=== PATIENT | female | born 1940 | race Caucasian/White ===

== ENCOUNTER 2016-06-01 17:11 | Inpatient (IN) | payer MEDICARE ==
[2016-06-01] MEDS ORDERED: NS 0.9% 1000 ML* 1,000 ML IV SCH ×2 (17:45→18:45)
[2016-06-01 18:08] LABS: Hematocrit 39 % (35-47); Hemoglobin 12.6 g/dl (12.0-16.0); Mean Corpuscular HGB Conc 32 g/dl (31-36); Mean Corpuscular Hemoglobin 27 pg (27-31); Mean Corpuscular Volume 84 fL (80-97); Mean Platelet Volume 9 um3 (7.4-10.4); Red Blood Count 4.64 10^6/ul (4.0-5.4); Red Cell Distribution Width 15 % (10.5-15); White Blood Count 13.3 10^3/ul (3.5-10.8)
[2016-06-01] MEDS ORDERED: Naloxone* 0.4 MG/ML 1 ML VIAL ONE (18:21)
[2016-06-01] MEDS ORDERED: Naloxone* 0.4 MG/ML 1 ML VIAL IV PUSH ONE (18:23)
[2016-06-01 18:24] LABS: ALT 16 U/L (7-52); AST 24 U/L (13-39); Albumin 3.7 g/dL (3.2-5.2); Alkaline Phosphatase 128 U/L (34-104); Anion Gap 7 mmol/L (2-11); BUN/Creatinine Ratio 16.8 (8-20); Blood Urea Nitrogen 19 mg/dL (6-24); CO2 Carbon Dioxide 28 mmol/L (22-32); Calcium 9.6 mg/dL (8.6-10.3); Chloride 103 mmol/L (101-111); Creatine Kinase 59 U/L (10-223); EGFR African American 60.2 (>60); EGFR Non-African American 46.8 (>60); Globulin 3.9 g/dL (2-4); Glucose 218 mg/dL (70-100); Potassium 3.5 mmol/L (3.5-5.0); Sodium 138 mmol/L (133-145); Total Protein 7.6 g/dL (6.4-8.9)
[2016-06-01 18:25] LABS: Troponin I 0.02 ng/mL (<0.04)
[2016-06-01 18:50] LABS: Acetaminophen < 15 mcg/mL; Alcohol < 10 mg/dL (<10); Salicylate < 2.50 mg/dL (<30)
--- NOTE | 2016-06-01 18:52 | ED ---
Gage Mullen Anna, scribed for James Iglesias MD on 06/01/16 at 1749 . Substance Abuse/Use - HPI Summary HPI Summary: Patient is a 75 y/o female coming to [facility] after taking 7-10 tablets of 30 mg oxycontin at 1600 this afternoon. The tablets were from an old bottle that was accidentally left out. Her reports that she takes 5 mg of oxycontin as needed for her shoulder. EMS reported the patient experienced several bouts of SVT en route to [facility]. Her history is significant for a fib and dementia. LEVEL 5 CAVEAT UNABLE TO OBTAIN FULL HISTORY DUE TO HX OF DEMENTIA - History Of Current Complaint Stated Complaint: ACCIDENTAL OVERDOSE Time Seen by Provider: 06/01/16 17:36 Hx Obtained From: Family/Lead Refiner - Accompanied by Hx From Patient Unobtainable Due To: Dementia - Allergies/Home Medications Allergies/Adverse Reactions: Allergies Allergy/AdvReac Type Severity Reaction Status Date / Time Sulfa Antibiotics Allergy Unknown Verified 06/01/16 18:20 Reaction Details Home Medications: Home Medications Apixaban* [Eliquis*] 5 mg PO BID 06/01/16 [History Confirmed 06/01/16] Aspirin EC Low Dose* [Ecotrin EC Low Dose*] 81 mg PO DAILY 06/01/16 [History Confirmed 06/01/16] Atorvastatin* [Lipitor*] 20 mg PO DAILY 06/01/16 [History Confirmed 06/01/16] Nebivolol TAB (NF) [Bystolic TAB (NF)] 5 mg PO DAILY 06/01/16 [History Confirmed 06/01/16] Temazepam CAP* [Restoril CAP*] 15 mg PO BEDTIME 06/01/16 [History Confirmed ] Torsemide TAB* [Demadex*] 10 mg PO DAILY 06/01/16 [History Confirmed 06/01/16] oxyCODONE/Acetamin 5/325 MG* [Percocet 5/325 TAB*] 1 tab PO Q4H PRN 06/01/16 [ History Confirmed 06/01/16] PMH/Surg Hx/FS Hx/Imm Hx Endocrine/Hematology History: Reports: Hx Diabetes Cardiovascular History: Reports: Hx Atrial Fibrillation, Hx Coronary Artery Disease Musculoskeletal History: Reports: Hx of Fracture(s) - wrist Neurological History: Reports: Hx Dementia Infectious Disease History: No Infectious Disease History: Denies: Traveled Outside the [place] in Last 30 Days - Family History Known Family History: Positive: Diabetes Negative: Cardiac Disease - Social History Occupation: Retired Lives: With Family Alcohol Use: None Hx Substance Use: No Substance Use Type: Reports: None Hx Tobacco Use: No Smoking Status (MU): Never Smoked Tobacco Review of Systems - ROS Summary Review of Systems Summary: LEVEL 5 CAVEAT UNABLE TO OBTAIN FULL HISTORY DUE TO HX OF DEMENTIA Positive: Palpitations Neurological: Other - decreased responsiveness All Other Systems Reviewed And Are Negative: No Physical Exam Triage Information Reviewed: Yes Vital Signs On Initial Exam: Initial Vitals Temp Pulse Resp BP Pulse Ox 96.3 F 82 14 161/74 97 06/01/16 17:32 06/01/16 17:32 06/01/16 17:32 06/01/16 17:32 06/01/16 17:32 Vital Signs Reviewed: Yes Appearance: Positive: Well-Appearing, No Pain Distress Skin: Positive: Warm, Skin Color Reflects Adequate Perfusion, Dry Head/Face: Positive: Normal Head/Face Inspection Eyes: Positive: Other: - Pupils 2 mm ENT: Positive: Normal ENT inspection Neck: Positive: Supple, Nontender Respiratory/Lung Sounds: Positive: Clear to Auscultation, Breath Sounds Present Cardiovascular: Positive: RRR Abdomen Description: Positive: Nontender, Soft Bowel Sounds: Positive: Hypoactive Musculoskeletal: Positive: Normal, Strength/ROM Intact Neurological: Positive: Other - Nonreactive. Stuporous. Decreased level of responsiveness. Responds to loud voice. Psychiatric: Positive: Patient Uncooperative for Exam - Nonreactive. Diagnostics - Vital Signs Vital Signs Temp Pulse Resp BP Pulse Ox 06/01/16 17:32 96.3 F 82 14 161/74 97 - Laboratory Lab Results: Lab Results 06/01/16 06/01/16 06/01/16 Range/Units 17:55 17:55 17:55 WBC 13.3 H (3.5-10.8) 10^3/ul RBC 4.64 (4.0-5.4) 10^6/ul Hgb 12.6 (12.0-16.0) g/dl Hct 39 (35-47) % MCV 84 (80-97) fL MCH 27 (27-31) pg MCHC 32 (31-36) g/dl RDW 15 (10.5-15) % Plt Count 236 (150-450) 10^3/ul MPV 9 (7.4-10.4) um3 Neut % (Auto) 72.2 (38-83) % Lymph % (Auto) 19.4 L (25-47) % [place] % (Auto) 6.1 (1-9) % Eos % (Auto) 1.6 (0-6) % Baso % (Auto) 0.7 (0-2) % Absolute Neuts (auto) 9.6 H (1.5-7.7) 10^3/ul Absolute Lymphs (auto) 2.6 (1.0-4.8) 10^3/ul Absolute Monos (auto) 0.8 (0-0.8) 10^3/ul Absolute Eos (auto) 0.2 (0-0.6) 10^3/ul Absolute Basos (auto) 0.1 (0-0.2) 10^3/ul Absolute Nucleated RBC 0 10^3/ul Nucleated RBC % 0 Sodium 138 (133-145) mmol/L Potassium 3.5 (3.5-5.0) mmol/L Chloride 103 (101-111) mmol/L Carbon Dioxide 28 (22-32) mmol/L Anion Gap 7 (2-11) mmol/L BUN 19 (6-24) mg/dL Creatinine 1.13 H (0.51-0.95) mg/dL Est GFR ( Amer) 60.2 (>60) Est GFR (Non-Af Amer) 46.8 (>60) BUN/Creatinine Ratio 16.8 (8-20) Glucose 218 H (70-100) mg/dL Lactic Acid 2.1 H* (0.5-2.0) mmol/L Calcium 9.6 (8.6-10.3) mg/dL Total Bilirubin 0.70 (0.2-1.0) mg/dL AST 24 (13-39) U/L ALT 16 (7-52) U/L Alkaline Phosphatase 128 H (34-104) U/L Total Creatine Kinase 59 (10-223) U/L Troponin I 0.02 (<0.04) ng/mL Total Protein 7.6 (6.4-8.9) g/dL Albumin 3.7 (3.2-5.2) g/dL Globulin 3.9 (2-4) g/dL Albumin/Globulin Ratio 0.9 L (1-3) TSH Pending Salicylates < 2.50 (<30) mg/dL Acetaminophen < 15 mcg/mL Serum Alcohol < 10 (<10) mg/dL Result Diagrams: 06/01/16 17:55 06/01/16 17:55 Lab Statement: Any lab studies that have been ordered have been reviewed, and results considered in the medical decision making process. - EKG 1754 Cardiac Rate: Tachycardia - 110 bpm EKG Interpretation: Artifact because of patient movement Course/Dx - Course Assessment/Plan: PATIENT DISCUSSED WITH POISON CONTROL. ADMIT HOSPITALIST GUARDED. - Diagnoses Provider Diagnoses: Overdose - Physician Notifications Discussed Care Of Patient With: Dr. Healy (hospitalist) at 1758. Accepts patient for admission. Discharge - Discharge Plan Condition: Guarded Disposition: ADMITTED TO [facility] documentation as recorded by the Gage walls Anna accurately reflects the service I personally performed and the decisions made by me, James Iglesias MD.
[2016-06-01 18:59] LABS: TSH (Thyroid Stimulating Horm) 1.82 mcIU/mL (0.34-5.60)
[2016-06-01] MEDS: Naloxone* 0.4 MG/ML 1 ML VIAL IV PUSH PRN ×3 (19:31→21:24)
[2016-06-01] MEDS ORDERED: Naloxone* 2 MG in NS 0.9% 250 ML* 245 ML IV SCH ×6 (21:00→21:38)
[2016-06-01] MEDS: Naloxone* 2 MG in NS 0.9% 250 ML* 245 ML IV SCH (21:40)
--- NOTE | 2016-06-01 22:08 | HP ---
HISTORY AND PHYSICAL: DATE OF ADMISSION: 06/01/16 PRIMARY CARE PROVIDER: Dr. Garza in [place]. CHIEF COMPLAINT: Unintentional OxyContin overdose. HISTORY OF PRESENT ILLNESS: Ms. Vo is a 75-year-old female with a past medical history of dementia, CAD status post LA, diet-controlled diabetes, and possibly AFib, who presents to the hospital after she took somewhere between 7 and 10, 30 mg oxycodone pills. The patient is fairly lethargic and the is unclear about the patient's medical history. He states that around 4:00 p.m. today, the patient was in her usual state of health. The was on the phone and the patient came up to him and told him that she took her night pills. Her usually lies her pills out in a pill bottle for her to take and when she brought him over to the bottle that she took he realized that was old prescription for OxyContin that he had still around the house. He suspects that there may have been between 7 to 10 pills in the bottle; however, he is not sure. The prescription was from some time last year and she is no longer on OxyContin. Her then called the EMS, who picked the patient and took her to the hospital. She was noted to have a few bouts of SVT en route to the emergency room which she continued to have intermittently here as well. The patient was initially lethargic. She had complaints; however, she was unable to stay awake for more than a few seconds at a time. Speech was a bit slurred. As per the , the patient was doing well as of late. She is normally ambulatory and alert. He states she has not had any recent fever, chills, chest pain, shortness of breath, diarrhea, or constipation. Has been having good p.o. intake. No hematuria or hematochezia. PAST MEDICAL HISTORY: Dementia, CAD status post LA, diet-controlled diabetes, possible AFib or SVT. PAST SURGICAL HISTORY: Wrist fracture repair, CABG. HOME MEDICATIONS: 1. Eliquis 5 mg by mouth 2 times daily. 2. Aspirin 81 mg by mouth daily. 3. Atorvastatin 20 mg by mouth daily. 4. Bystolic 5 mg by mouth daily. 5. Torsemide 10 mg by mouth daily. 6. Temazepam 15 mg by mouth at bedtime. 7. Percocet 5/325 one tablet by mouth every 4 hours as needed for pain. ALLERGIES: SULFA, METFORMIN, PENICILLIN. FAMILY HISTORY: Significant for father with CAD. Mother of old age. SOCIAL HISTORY: The patient lives at home with her and their son who is their caregiver. The patient does not smoke cigarettes, drink alcohol, and denies illicit drug use. REVIEW OF SYSTEMS: Unable to obtain directly from the patient; however, as per the 12-point review of systems was negative except for that as noted in the HPI. PHYSICAL EXAMINATION GENERAL: The patient is an elderly female, lying in bed, lethargic. VITAL SIGNS: On admission, temperature 96.3, heart rate of 82, respiratory rate of 14, O2 saturation 97% on room air, blood pressure 161/74. End-tidal CO2 in the 31. HEENT: Pupils did not appear pinpoint, although slightly constricted. Mucous membranes are dry. No cervical adenopathy. LUNGS: Clear to auscultation bilaterally. No wheezes, rales, or rhonchi. CARDIOVASCULAR: Regular rate and rhythm. S1 and S2 present. No murmurs, gallops, or rubs. Occasional bursts of tachycardia. ABDOMEN: Soft, nontender, and nondistended. Bowel sounds positive. EXTREMITIES: Trace edema. No clubbing or cyanosis. NEURO: The patient is lethargic. Opens eyes briefly to voice, then falls back asleep. No focal deficits. DIAGNOSTIC STUDIES/LAB DATA: White blood cell count is 13, hematocrit of 39, platelets of 236. Sodium 138, potassium 3.5, chloride of 103, carbon dioxide 28 , BUN 19, creatinine 1.13, glucose of 218, lactic acid of 2.1. LFTs within normal limits. TSH of 1.82. Serum alcohol, acetaminophen, and salicylates are all negative. EKG personally reviewed shows normal sinus rhythm and seems to have picked up the end of run of SVT. ASSESSMENT AND PLAN: Unintentional overdose in a 75-year-old female with a past medical history of dementia, coronary artery disease status post myocardial infarction, diet-controlled diabetes, and possible atrial fibrillation. 1. Overdose. The patient took possibly 7 to 10 tablets of 30 mg OxyContin pills. While in the emergency department, she appeared lethargic. We administered 0.4 mg of Narcan. The patient immediately was more alert and responsive. We will continue p.r.n. Narcan for respiratory rate less than 10. If the patient is requiring frequent doses, Narcan drip can be started. She will be monitored closely in the ICU. Hopefully, these medications will begin to wear off tomorrow. The patient is not supplemental oxygen. She is fairly protecting her airway and does not need endotracheal intubation. 2. Supraventricular tachycardia, possible history of atrial fibrillation. The patient is having short bursts of supraventricular tachycardia that are largely asymptomatic, just lasting for a few seconds. We will continue the patient's home beta rodney and can restart Eliquis in the morning as well providing she is more alert. 3. Coronary artery disease status post myocardial infarction. We will order home aspirin 81 mg by mouth daily, Lipitor 20 mg by mouth daily, and nebivolol 5 mg by mouth daily. 4. Dementia. Supportive care. 5. Diet-controlled diabetes. The patient is not on any home medications. We will check glucoses with daily BMP. 6. DVT prophylaxis. We will keep the patient on heparin subcu overnight until she is able to take her Eliquis. 7. Code status. The patient is a full code. I discussed with her who is also the surrogate decision maker, his number is [phone]. TIME SPENT: Total time spent on this discharge 55 minutes. This is a summary of the hospitalization. Please see the full medical record for further details. [id number]/CPS #: [id number] MTDD
[2016-06-01] MEDS: Heparin VIAL(*) 5000 UNITS/ML VIAL (FIVE THOUSAND) SUBCUT SCH (22:32)
[2016-06-01 23:32] LABS: Urine Bacteria Absent (Absent); Urine Bilirubin Negative (Negative); Urine Glucose 3+(>=500 mg/dL) (Negative); Urine Nitrite Negative (Negative)
[2016-06-01 23:56] LABS: Benzodiazepine Urine Screen None Detected (None Detect)
[2016-06-02] MEDS: Naloxone* 2 MG in NS 0.9% 250 ML* 245 ML IV SCH ×12 (00:01→22:56)
[2016-06-02] MEDS ORDERED: Dextrose 50% Syringe 50 ML* 25 GM/50 ML SYRINGE IV PUSH PRN (00:18)
[2016-06-02] MEDS: Insulin LISPRO* 1 UNITS UNIT SUBCUT SCH ×4 (00:57→17:45)
[2016-06-02 05:36] LABS: Hematocrit 36 % (35-47); Hemoglobin 11.6 g/dl (12.0-16.0); Mean Corpuscular HGB Conc 32 g/dl (31-36); Mean Corpuscular Hemoglobin 27 pg (27-31); Mean Corpuscular Volume 85 fL (80-97); Mean Platelet Volume 9 um3 (7.4-10.4); Red Blood Count 4.25 10^6/ul (4.0-5.4); Red Cell Distribution Width 15 % (10.5-15); White Blood Count 8.4 10^3/ul (3.5-10.8)
[2016-06-02 05:51] LABS: BUN/Creatinine Ratio 20.8 (8-20); Calcium 9.1 mg/dL (8.6-10.3); EGFR African American 68.5 (>60); EGFR Non-African American 53.3 (>60); Potassium 4.4 mmol/L (3.5-5.0)
[2016-06-02] MEDS: Heparin VIAL(*) 5000 UNITS/ML VIAL (FIVE THOUSAND) SUBCUT SCH (06:15)
[2016-06-02] MEDS: Naloxone* 0.4 MG/ML 1 ML VIAL IV PUSH PRN (06:40)
[2016-06-02] MEDS ORDERED: NS 0.9% 250 ML* 250 ML ONE (06:47)
--- NOTE | 2016-06-02 08:55 | PN ---
Subjective Date of Service: 06/02/16 Interval History: Patient seen this morning. Slightly lethargic but improved from last night. Has no complaints, denies pain. Says she's a bit thirsty, not hungry. Knows she's in the hospital because "I took too many pills". Family History: Unchanged from Admission Social History: Unchanged from Admission Past Medical History: Unchanged from Admission Objective Active Medications: Aspirin (Aspirin Ec Low Dose*) 81 mg PO DAILY [facility] Atorvastatin Calcium (Lipitor*) 20 mg PO DAILY [facility] Dextrose (D50w Syringe 50 Ml*) 12.5 gm IV PUSH .FOR FS < 60 - SS PRN Heparin Sodium (Porcine) (Heparin Vial(*)) 5,000 units SUBCUT Q8HR [place] Naloxone HCl 2 mg/ Sodium (Chloride) 250 mls @ 125 mls/hr IV Q2H [place] Insulin Human Lispro (Humalog*) 0 units SUBCUT Q6HR [place] Naloxone HCl (Narcan*) 0.4 mg IV PUSH Q2M PRN Nebivolol (Bystolic Tab (Nf)) 5 mg PO DAILY [facility] Vital Signs 06/01/16 06/01/16 06/01/16 18:30 19:00 19:30 Temperature Pulse Rate 92 73 86 Respiratory 20 13 13 Rate Blood Pressure 151/69 163/70 184/88 (mmHg) O2 Sat by Pulse 99 98 100 Oximetry 06/01/16 06/01/16 06/01/16 20:00 20:15 20:20 Temperature 97.8 F Pulse Rate 86 99 Respiratory 16 12 8 Rate Blood Pressure 193/64 180/77 (mmHg) O2 Sat by Pulse 100 100 Oximetry 06/02/16 06/02/16 06/02/16 06:06 07:00 08:00 Temperature 97.3 F Pulse Rate 67 68 63 Respiratory 10 14 9 Rate Blood Pressure 92/41 116/52 106/48 (mmHg) O2 Sat by Pulse 97 98 99 Oximetry Oxygen Devices in Use Now: Nasal Cannula - 2L Appearance: Elderly, F, laying in bed in NAD Eyes: No Scleral Icterus Ears/Nose/Mouth/Throat: - - Dry MM Neck: NL Appearance and Movements; NL JVP Respiratory: Symmetrical Chest Expansion and Respiratory Effort, Clear to Auscultation Cardiovascular: NL Sounds; No Murmurs; No JVD, RRR Abdominal: NL Sounds; No Tenderness; No Distention Lymphatic: No Cervical Adenopathy Extremities: No Edema Skin: No Rash or Ulcers Neurological: - - Somewhat lethargic, but awakens easily, oriented to self, "hospital" although thought was [place]. No focal deficits Result Diagrams: 06/02/16 05:15 06/02/16 05:15 Microbiology and Other Data: Microbiology 06/01/16 21:26 Nasal Screen MRSA (PCR)(MYRIAM) - Final Nasal Mrsa Negative Assess/Plan/Problems-Billing Assessment: Unintentional Oxycontin OD in a 75 yo F with hx of dementia, CAD, AFib - Patient Problems (1) Opiate overdose Current Visit: Yes Comment: Continues to require Narcan gtt, increased to 125 ml/hr (1 mg/hr) earlier this morning. Contine to monitor closely in ICU until gtt able to be titrated off. Half-life of Oxycontin is 4-6 hours and patient apparently took them around 1630 on 06/01. Will try some PO this morning. (2) SVT (supraventricular tachycardia) Current Visit: Yes Comment: No further episodes (3) Atrial fibrillation Current Visit: Yes Comment: Continue Nebivolol. Restart Eliquis. (4) CAD (coronary artery disease) Current Visit: Yes Comment: Continue ASA, Nebivolol, Lipitor (5) Dementia Current Visit: Yes Comment: Supportive care (6) Diabetes Current Visit: Yes Comment: HISS. Not on home medications. (7) DVT prophylaxis Current Visit: Yes Comment: Eliquis
[2016-06-02] MEDS ORDERED: Apixaban* 5 MG TAB PO SCH (09:00)
[2016-06-02] MEDS: CMCS Nebivolol TAB (NF) 2.5 MG TAB PO SCH (09:03)
[2016-06-02] MEDS: Atorvastatin* 20 MG TAB PO SCH (09:03)
[2016-06-02] MEDS: Aspirin EC Low Dose* 81 MG TAB.EC PO SCH (09:03)
[2016-06-02] MEDS: Apixaban* 5 MG TAB PO SCH ×2 (09:45→20:29)
[2016-06-03] MEDS: Naloxone* 2 MG in NS 0.9% 250 ML* 245 ML IV SCH ×4 (03:46→12:25)
[2016-06-03] MEDS: Insulin LISPRO* 1 UNITS UNIT SUBCUT SCH ×5 (03:51→22:48)
--- NOTE | 2016-06-03 09:50 | PN ---
Subjective Date of Service: 06/03/16 Interval History: Patient seen this morning. More alert but still a bit lethargic. Weaned off Narcan gtt this morning. Apparently did fairly well with PT. She has no complaints, recalls she is here for "taking too many pills". Family History: Unchanged from Admission Social History: Unchanged from Admission Past Medical History: Unchanged from Admission Objective Active Medications: Apixaban (Eliquis*) 5 mg PO BID [facility] Aspirin (Aspirin Ec Low Dose*) 81 mg PO DAILY [facility] Atorvastatin Calcium (Lipitor*) 20 mg PO DAILY [facility] Dextrose (D50w Syringe 50 Ml*) 12.5 gm IV PUSH .FOR FS < 60 - SS PRN Naloxone HCl 2 mg/ Sodium (Chloride) 250 mls @ 125 mls/hr IV Q2H [facility] Insulin Human Lispro (Humalog*) 0 units SUBCUT ACHS [place] Naloxone HCl (Narcan*) 0.4 mg IV PUSH Q2M PRN Nebivolol (Bystolic Tab (Nf)) 5 mg PO DAILY [facility] Vital Signs 06/02/16 06/02/16 06/02/16 10:00 11:00 11:35 Temperature Pulse Rate 62 58 Respiratory 8 9 9 Rate Blood Pressure 109/55 94/49 (mmHg) O2 Sat by Pulse 98 97 Oximetry 06/02/16 06/02/16 06/02/16 16:51 17:00 17:46 Temperature Pulse Rate 71 Respiratory 10 16 16 Rate Blood Pressure 141/46 (mmHg) O2 Sat by Pulse 99 Oximetry 06/03/16 06/03/16 06/03/16 01:00 02:00 03:00 Temperature Pulse Rate 65 Respiratory 13 14 12 Rate Blood Pressure 134/61 142/64 (mmHg) O2 Sat by Pulse 93 93 95 Oximetry 06/03/16 06/03/16 08:00 09:00 Temperature Pulse Rate 65 67 Respiratory 12 14 Rate Blood Pressure 143/61 117/98 (mmHg) O2 Sat by Pulse 91 94 Oximetry Oxygen Devices in Use Now: None Appearance: Elderly, F, sitting in chair in NAD Eyes: No Scleral Icterus Ears/Nose/Mouth/Throat: Mucous Membranes Moist Neck: NL Appearance and Movements; NL JVP Respiratory: Symmetrical Chest Expansion and Respiratory Effort, Clear to Auscultation Cardiovascular: NL Sounds; No Murmurs; No JVD, RRR Abdominal: NL Sounds; No Tenderness; No Distention Lymphatic: No Cervical Adenopathy Extremities: No Edema Skin: No Rash or Ulcers Neurological: - - Alert, oriented to self and place, no focal deficits Result Diagrams: 06/02/16 05:15 06/02/16 05:15 Assess/Plan/Problems-Billing Assessment: Unintentional Oxycontin OD in a 75 yo F with hx of dementia, CAD, AFib - Patient Problems (1) Opiate overdose Current Visit: Yes Comment: Weaned off of Narcan gtt a few hours ago. Will monitor for a few more hours in ICU to see if she needs additional prn Narcan. If not requiring frequently will transfer to the floor. Half-life of Oxycontin is 4-6 hours and patient apparently took them around 1630 on 06/01. (2) SVT (supraventricular tachycardia) Current Visit: Yes Comment: Likely chronic issue for the patient, asmyptomatic. (3) Atrial fibrillation Current Visit: Yes Comment: Continue Nebivolol and Eliquis. (4) CAD (coronary artery disease) Current Visit: Yes Comment: Continue ASA, Nebivolol, Lipitor (5) Dementia Current Visit: Yes Comment: Supportive care (6) Diabetes Current Visit: Yes Comment: HISS. Not on home medications. (7) DVT prophylaxis Current Visit: Yes Comment: Eliquis Status and Disposition: Inpatient for unintentional overdose. Likely discharge in next 24-48 hrs. PT eval pending.
[2016-06-03] MEDS: Atorvastatin* 20 MG TAB PO SCH (10:08)
[2016-06-03] MEDS: Aspirin EC Low Dose* 81 MG TAB.EC PO SCH (10:08)
[2016-06-03] MEDS: CMCS Nebivolol TAB (NF) 2.5 MG TAB PO SCH (10:08)
[2016-06-03] MEDS: Apixaban* 5 MG TAB PO SCH ×2 (10:09→22:48)
[2016-06-04] MEDS: Apixaban* 5 MG TAB PO SCH (08:02)
[2016-06-04] MEDS: CMCS Nebivolol TAB (NF) 2.5 MG TAB PO SCH (08:02)
[2016-06-04] MEDS: Atorvastatin* 20 MG TAB PO SCH (08:02)
[2016-06-04] MEDS: Aspirin EC Low Dose* 81 MG TAB.EC PO SCH (08:03)
[2016-06-04] MEDS: Insulin LISPRO* 1 UNITS UNIT SUBCUT SCH (08:04)
[2016-06-04 08:48] VITALS: BP 150/53
--- NOTE | 2016-06-04 09:45 | DCNOTE ---
Subjective Date of Service: 06/04/16 Interval History: No c/o. She states she ate breakfast well and slept well. She denies any pain. Family History: Unchanged from Admission Social History: Unchanged from Admission Past Medical History: Unchanged from Admission Objective Active Medications: Apixaban (Eliquis*) 5 mg PO BID [facility] Last Admin: 06/04/16 08:02 Dose: 5 mg Aspirin (Aspirin Ec Low Dose*) 81 mg PO DAILY [facility] Last Admin: 06/04/16 08:03 Dose: 81 mg Atorvastatin Calcium (Lipitor*) 20 mg PO DAILY [facility] Last Admin: 06/04/16 08:02 Dose: 20 mg Dextrose (D50w Syringe 50 Ml*) 12.5 gm IV PUSH .FOR FS < 60 - SS PRN PRN Reason: FS < 60 Insulin Human Lispro (Humalog*) 0 units SUBCUT ACHS [facility] PRN Reason: Protocol Last Admin: 06/04/16 08:04 Dose: Not Given Naloxone HCl (Narcan*) 0.4 mg IV PUSH Q2M PRN PRN Reason: RR < 10 Last Admin: 06/02/16 06:40 Dose: 0.4 mg Nebivolol (Bystolic Tab (Nf)) 5 mg PO DAILY [facility] Last Admin: 06/04/16 08:02 Dose: 5 mg Vital Signs 06/03/16 06/03/16 06/03/16 10:00 10:03 11:00 Temperature Pulse Rate 75 63 Respiratory 18 18 15 Rate Blood Pressure 159/64 120/42 (mmHg) O2 Sat by Pulse 94 92 Oximetry 06/03/16 06/03/16 06/03/16 12:00 12:16 12:23 Temperature 98.8 F 98.8 F 98.8 F Pulse Rate 67 67 Respiratory 18 16 Rate Blood Pressure 155/57 155/57 (mmHg) O2 Sat by Pulse 98 98 Oximetry 06/03/16 06/03/16 06/03/16 14:26 15:56 20:00 Temperature 98.3 F Pulse Rate 68 69 Respiratory 17 17 17 Rate Blood Pressure 152/60 147/74 (mmHg) O2 Sat by Pulse 100 97 Oximetry 06/03/16 06/04/16 06/04/16 23:22 04:45 07:43 Temperature 98.0 F 98.4 F 98.4 F Pulse Rate 66 68 67 Respiratory 16 18 18 Rate Blood Pressure 142/49 157/73 150/53 (mmHg) O2 Sat by Pulse 96 96 100 Oximetry 06/04/16 08:48 Temperature Pulse Rate Respiratory 20 Rate Blood Pressure (mmHg) O2 Sat by Pulse Oximetry Oxygen Devices in Use Now: None Appearance: Alert, in a chair. In good spirits. Looks comfortable. Eyes: No Scleral Icterus Ears/Nose/Mouth/Throat: Clear Oropharnyx, Mucous Membranes Moist Neck: NL Appearance and Movements; NL JVP, No Thyroid Enlargement, Masses Respiratory: Symmetrical Chest Expansion and Respiratory Effort, Clear to Auscultation, Clear to Percussion Cardiovascular: NL Sounds; No Murmurs; No JVD, RRR, No Edema, - Extremities: No Edema, No Clubbing, Cyanosis, - Skin: No Rash or Ulcers, No Nodules or Sclerosis, - Neurological: NL Sensation - She knows her whole name, her age, her 's name, and the present month, but did not know the name of the facility. Result Diagrams: 06/02/16 05:15 06/02/16 05:15 Additional Lab and Data: Lab Results 06/01/16 06/01/16 06/01/16 Range/Units 17:55 17:55 17:55 WBC 13.3 H (3.5-10.8) 10^3/ul RBC 4.64 (4.0-5.4) 10^6/ul Hgb 12.6 (12.0-16.0) g/dl Hct 39 (35-47) % MCV 84 (80-97) fL MCH 27 (27-31) pg MCHC 32 (31-36) g/dl RDW 15 (10.5-15) % Plt Count 236 (150-450) 10^3/ul MPV 9 (7.4-10.4) um3 Neut % (Auto) 72.2 (38-83) % Lymph % (Auto) 19.4 L (25-47) % [place] % (Auto) 6.1 (1-9) % Eos % (Auto) 1.6 (0-6) % Baso % (Auto) 0.7 (0-2) % Absolute Neuts (auto) 9.6 H (1.5-7.7) 10^3/ul Absolute Lymphs (auto) 2.6 (1.0-4.8) 10^3/ul Absolute Monos (auto) 0.8 (0-0.8) 10^3/ul Absolute Eos (auto) 0.2 (0-0.6) 10^3/ul Absolute Basos (auto) 0.1 (0-0.2) 10^3/ul Absolute Nucleated RBC 0 10^3/ul Nucleated RBC % 0 Sodium 138 (133-145) mmol/L Potassium 3.5 (3.5-5.0) mmol/L Chloride 103 (101-111) mmol/L Carbon Dioxide 28 (22-32) mmol/L Anion Gap 7 (2-11) mmol/L BUN 19 (6-24) mg/dL Creatinine 1.13 H (0.51-0.95) mg/dL Est GFR ( Amer) 60.2 (>60) Est GFR (Non-Af Amer) 46.8 (>60) BUN/Creatinine Ratio 16.8 (8-20) Glucose 218 H (70-100) mg/dL Lactic Acid 2.1 H* (0.5-2.0) mmol/L Calcium 9.6 (8.6-10.3) mg/dL Total Bilirubin 0.70 (0.2-1.0) mg/dL AST 24 (13-39) U/L ALT 16 (7-52) U/L Alkaline Phosphatase 128 H (34-104) U/L Total Creatine Kinase 59 (10-223) U/L Troponin I 0.02 (<0.04) ng/mL Total Protein 7.6 (6.4-8.9) g/dL Albumin 3.7 (3.2-5.2) g/dL Globulin 3.9 (2-4) g/dL Albumin/Globulin Ratio 0.9 L (1-3) TSH Pending Salicylates < 2.50 (<30) mg/dL Acetaminophen < 15 mcg/mL Serum Alcohol < 10 (<10) mg/dL Microbiology and Other Data: Microbiology 06/01/16 21:26 Nasal Screen MRSA (PCR)(MYRIAM) - Final Nasal Mrsa Negative Assess/Plan/Problems-Billing Assessment: Unintentional Oxycontin OD in a 75 yo F with hx of dementia, CAD, AFib - Patient Problems (1) Opiate overdose Current Visit: Yes Status: Acute Code(s): T40.601A - POISONING BY UNSP NARCOTICS, ACCIDENTAL, INIT SNOMED Code(s): 901452171 Comment: Resolved. I discussed meds (opiates and benzos) and pain/sleep management with . (2) Atrial fibrillation Current Visit: Yes Status: Acute Code(s): I48.91 - UNSPECIFIED ATRIAL FIBRILLATION SNOMED Code(s): 42991449 Comment: Continue Nebivolol and Eliquis. (3) CAD (coronary artery disease) Current Visit: Yes Status: Acute Code(s): I25.10 - ATHSCL HEART DISEASE OF [place] CORONARY ARTERY W/O ANG PCTRS SNOMED Code(s): 27923615 Comment: Continue ASA, Nebivolol, Lipitor (4) Dementia Current Visit: Yes Status: Acute Code(s): F03.90 - UNSPECIFIED DEMENTIA WITHOUT BEHAVIORAL DISTURBANCE SNOMED Code(s): 96506149 Comment: Supportive care (5) SVT (supraventricular tachycardia) Current Visit: Yes Status: Acute Code(s): I47.1 - SUPRAVENTRICULAR TACHYCARDIA SNOMED Code(s): 2329276 Comment: Likely chronic issue for the patient, asmyptomatic. Status and Disposition: Discharge now. Fup Dr. Garza.
--- NOTE | 2016-06-04 09:52 | PN ---
Progress Note - Progress Note Note: Time spent on discharge 45 minutes.
--- NOTE | 2016-06-04 11:33 | DS ---
DISCHARGE SUMMARY: DATE OF ADMISSION: DATE OF DISCHARGE: 06/04/16 HOSPITAL COURSE: This 75-year-old woman was admitted with an unintentional oxycodone overdose. The patient apparently had an old prescription for oxycodone slow release around the house, although that she was not supposed to be taking it and could have taken as many as 10 of the tablets. She was not sure how many was in the bottle. The patient was lethargic and required naloxone continuous infusions for a while ; however, she recovered to her baseline status and was in good condition on the day of discharge. She denied having pain. She did not get anymore analgesics. She did not get any hypnotic agents either. On discharge, I have instructed the not to give her temazepam or oxycodone, but TO use acetaminophen 650 mg every 4 hours p.r.n. pain. FINAL DIAGNOSES: 1. Opioid misuse. 2. Supraventricular tachycardia. 3. Atrial fibrillation. 4. Dementia. 5. Coronary artery disease. DISCHARGE MEDICATIONS: 1. Acetaminophen 650 mg q4hr PRN 2. Nebivolol 5 mg daily 3. Atorvastatin 20 mg daily 4. ASA EC 81 mg daily 5. Apixaban 5 mg bid [id number]/[facility] #: [id number] MTDD
== END 2016-06-04 10:40 | disposition home or self-care (01) | DRG 918 ==
LOC: ED 17:11 → ICU 18:11 → MED 06-03 10:56
PROVIDERS: ADMIT Hospitalist; ATTEND Internal Medicine
DX: T40.2X1A Poisoning by other opioids, accidental (unintentional), initial encounter (principal); I47.1 Supraventricular tachycardia; F03.90 Unspecified dementia, unspecified severity, without behavioral disturbance, psychotic disturbance, mood disturbance, and anxiety; I48.0 Paroxysmal atrial fibrillation; I25.810 Atherosclerosis of coronary artery bypass graft(s) without angina pectoris; R53.83 Other fatigue; Y92.009 Unspecified place in unspecified non-institutional (private) residence as the place of occurrence of the external cause; E11.9 Type 2 diabetes mellitus without complications; I25.2 Old myocardial infarction; Z79.01 Long term (current) use of anticoagulants; Z79.82 Long term (current) use of aspirin; Z79.899 Other long term (current) drug therapy; Z88.0 Allergy status to penicillin; Z88.2 Allergy status to sulfonamides; Z88.8 Allergy status to other drugs, medicaments and biological substances; Z82.49 Family history of ischemic heart disease and other diseases of the circulatory system
CPT/HCPCS: 36415; 80048; 80053; 80307; 80320; 80329; 81003; 81015; 82550; 83605; 84443; 84484; 85025; 87077; 87086; 87186; 87641; 93005; A9270-GY; G0480; J1644; J2310

== ENCOUNTER 2018-08-25 00:42 | Inpatient (IN) | payer MEDICARE, MEDICAID ==
--- NOTE | 2018-08-25 01:27 | ED ---
Complex/Multi-Sys Presentation - HPI Summary HPI Summary: 78 year old F BIB EMS to [facility] accompanied by with a chief complaint of insomnia, weakness s/p getting up to go to the bathroom with her 's help , legs collapsing to the ground 3 hours ago. Symptoms aggravated by nothing. Symptoms alleviated by nothing. Patient reports dizziness. denies decreased appetite, inability to ambulate. Per , patient has not been sleeping well recently and falling more. She was started on trazodone recently per . Per , patient took trazodone at 19:00 on 08/23/18 after which patient slept for 18 hours which was unusual. Patient was recently diagnosed with Parkinson's per . Patient normally ambulates frequently per . - History Of Current Complaint Chief Complaint: EDFall Time Seen by Provider: 08/25/18 01:12 Hx Obtained From: Patient, Family/Audit Practice Intern - Onset/Duration: Lasting Hours - 3, Still Present Aggravating Factor(s): Nothing Alleviating Factor(s): Nothing Associated Signs And Symptoms: Positive: Other - dizziness; NEGATIVE: decreased appetite, inability to ambulate - Allergies/Home Medications Allergies/Adverse Reactions: Allergies Allergy/AdvReac Type Severity Reaction Status Date / Time Sulfa (Sulfonamide Allergy Unknown Verified 08/25/18 03:20 Antibiotics) Reaction Details Home Medications: Home Medications Acetaminophen TAB* [Tylenol TAB*] 650 mg PO Q4H PRN 08/25/18 [History Confirmed 08/25/18] oxyCODONE/Acetamin 5/325 MG* [Percocet 5/325 TAB*] 1 tab PO Q6H PRN 08/25/18 [ History Confirmed 08/25/18] traZODone TAB* [Desyrel TAB*] 100 mg PO BEDTIME 08/25/18 [History Confirmed ] PMH/Surg Hx/FS Hx/Imm Hx Previously Healthy: No Endocrine/Hematology History: Reports: Hx Diabetes - Diet and oral meds Cardiovascular History: Reports: Hx Atrial Fibrillation, Hx Coronary Artery Disease, Other Cardiovascular Problems/Disorders - CABG, CAD, possible Afib in past, SVT Musculoskeletal History: Reports: Other Musculoskeletal History - wrist sx for fracture repair Neurological History: Reports: Hx Dementia - Surgical History Surgery Procedure, Year, and Place: Fractured Wrist repair Infectious Disease History: No Infectious Disease History: Denies: Traveled Outside the [place] in Last 30 Days - Family History Known Family History: Positive: Diabetes Negative: Cardiac Disease - Social History Alcohol Use: None Hx Substance Use: No Substance Use Type: Reports: None Substance Use Comment - Amount & Last Used: prescription Hx Tobacco Use: No Smoking Status (MU): Never Smoked Tobacco Review of Systems Gastrointestinal: Negative - decreased appetite Neurological: Other - Dizziness; NEGATIVE: inability to ambulate Positive: Weakness Positive: Other - insomnia All Other Systems Reviewed And Are Negative: Yes Physical Exam - Summary Physical Exam Summary: VITAL SIGNS: Reviewed. GENERAL: Patient is a well-developed and nourished FEMALE who is lying comfortable in the stretcher. Patient is not in any acute respiratory distress. Patient is pale and somewhat lethargic HEAD AND FACE: No signs of trauma. No ecchymosis, hematomas or skull depressions. No sinus tenderness. EYES: PERRLA, EOMI x 2, No injected conjunctiva, no nystagmus. EARS: Hearing grossly intact. Ear canals and tympanic membranes are within normal limits. MOUTH: Oropharynx within normal limits. NECK: Supple, trachea is midline, no adenopathy, no JVD, no carotid bruit, no c- spine tenderness, neck with full ROM CHEST: Symmetric, no tenderness at palpation LUNGS: Clear to auscultation bilaterally. No wheezing or crackles. CVS: Irregular heart beat ABDOMEN: Soft, non-tender. No signs of distention. No rebound no guarding, and no masses palpated. Bowel sounds are normal. EXTREMITIES: FROM in all major joints, no edema, no cyanosis or clubbing. NEURO: Alert and oriented x 3. No acute neurological deficits. Speech is normal and follows commands. She has static tremors of her left upper extremity SKIN: Dry and warm GCS: 15 Triage Information Reviewed: Yes Vital Signs On Initial Exam: Initial Vitals Temp Pulse Resp BP Pulse Ox 98.8 F 92 16 154/109 96 08/25/18 00:56 08/25/18 00:56 08/25/18 00:56 08/25/18 00:56 08/25/18 00:56 Vital Signs Reviewed: Yes Diagnostics - Vital Signs Vital Signs Temp Pulse Resp BP Pulse Ox 08/25/18 00:56 98.8 F 92 16 154/109 96 - Laboratory Result Diagrams: 08/25/18 01:37 08/25/18 01:37 Lab Statement: Any lab studies that have been ordered have been reviewed, and results considered in the medical decision making process. - Radiology CXR Radiology Interpretation Completed By: ED Physician Summary of Radiographic Findings: No acute process. Pending official report. - CT Brain CT Interpretation Completed By: Radiologist Summary of CT Findings: 1. No acute intracranial abnormality. 2. Age-related atrophy and moderate chronic small vessel ischemic disease. ED physician has reviewed this report. - EKG 0135 Cardiac Rate: NL - 93 BPM EKG Rhythm: Sinus Rhythm Summary of EKG Findings: Q waves in inferior leads Complex Multi-Symp Course/Dx Course Of Treatment: 78 year old F BIB EMS to [facility] accompanied by with a chief complaint of weakness s/p getting up to go to the bathroom with her 's help, legs collapsing to the ground 3 hours ago. Per , patient took trazodone at 19:00 on 08/23/18 after which patient slept for 18 hours which was unusual. Brain CT shows, per radiologist, 1. No acute intracranial abnormality. 2. Age-related atrophy and moderate chronic small vessel ischemic disease. EKG shows Q waves in the inferior leads. CXR shows no acute process. Spoke with Dr. Wheeler, hospitalist, who agrees to see patient in ED. Dr. Wheeler will admit patient. The patient will be admitted. Patient and are agreeable to this plan. - Diagnoses Provider Diagnoses: Weakness, Falling - Physician Notifications Discussed Care Of Patient With: Karine Wheeler Time Discussed With Above Provider: 03:21 Instructed by Provider To: Other - Dr. Wheeler, hospitalist, agrees to come see patient in ED. Dr. Wheeler agrees to admit patient at 04:03. Discharge - Sign-Out/Discharge Documenting (check all that apply): Patient Departure - Admit Patient Received Moderate/Deep Sedation with Procedure: No - Discharge Plan Condition: Stable Disposition: ADMITTED TO [facility] - Attestation Statements Document Initiated by Scribe: Yes Documenting Scribe: Miriam Shen Provider For Whom Scribe is Documenting (Include Credential): Cem Hawk MD Scribe Attestation: Miriam Mullen, scribed for Cem Hawk MD on 05/17/19 at 0525. Status of Scribe Document: Ready
[2018-08-25 01:54] LABS: ABS Lymphocytes 0.4 10^3/ul (1.0-4.8); ABS Monocytes 0.3 10^3/ul (0-0.8); ABS Neutrophils 10.9 10^3/ul (1.5-7.7); Hematocrit 44 % (35-47); Hemoglobin 14.6 g/dL (12.0-16.0); Lymphocyte % 3.5 %; Mean Corpuscular HGB Conc 33 g/dL (31-36); Mean Corpuscular Hemoglobin 29 pg (27-31); Mean Corpuscular Volume 87 fL (80-97); Mean Platelet Volume 9.6 fL (7.4-10.4); Platelet Count 177 10^3/uL (150-450); Red Cell Distribution Width 16 % (10.5-15); White Blood Count 11.7 10^3/uL (3.5-10.8)
[2018-08-25 02:00] LABS: Activated Partial Thrombo Time 36.1 seconds (26.0-36.3); INR 1.74 (0.82-1.09)
[2018-08-25 02:16] LABS: Urine Appearance Cloudy; Urine Bacteria Absent (Absent); Urine Bilirubin Negative (Negative); Urine Blood Negative (Negative); Urine Color Yellow; Urine Glucose Negative (Negative); Urine Ketones Negative (Negative); Urine Nitrite Negative (Negative); Urine Protein Negative (Negative); Urine Red Blood Cell Trace(0-2/hpf) (Absent); Urine Specific Gravity 1.019 (1.010-1.030); Urine Squamous Epithelial Cell Present (Absent); Urine Urobilinogen Negative (Negative); Urine White Blood Cell Absent (Absent)
[2018-08-25 02:18] LABS: Albumin 3.9 g/dL (3.2-5.2); Calcium 9.9 mg/dL (8.6-10.3); Potassium 4.3 mmol/L (3.5-5.0); Total Bilirubin 1.9 mg/dL (0.2-1.0)
[2018-08-25 02:24] LABS: Albumin/Globulin Ratio 1.1 (1-3); BUN/Creatinine Ratio 18.9 (8-20); EGFR African American 60.5 (>60); Globulin 3.6 g/dL (2-4); Total Protein 7.5 g/dL (6.4-8.9)
[2018-08-25] MEDS ORDERED: oxyCODONE/Acetamin 5/325 MG* TAB PO PRN (04:03)
[2018-08-25] MEDS ORDERED: NS 0.9% 1000 ML** 1,000 ML IV SCH ×2 (04:15→18:15)
--- NOTE | 2018-08-25 08:58 | HP ---
CC: Dr. Garza* HISTORY AND PHYSICAL: DATE OF ADMISSION: 08/25/18 PRIMARY CARE PROVIDER: Dr. Garza in [place]. CHIEF COMPLAINT: "Took trazodone and slept 18 hours and fell ". HISTORY OF PRESENT ILLNESS: Bhavani Vo is a 78-year-old female with history of dementia, who was brought in by her concerned . The patient's stated that the patient has a busy day 2 days ago and after that was very hyperactive. Apparently, the patient had troubles with sleeping at night, but sleeps mostly during the daytime and her nights and days "reversed". The patent's stated that she used trazodone couple of months ago as described by Dr. Garza and had an adverse reaction, did not sleep at all. Since then, they have not use it until the day and half ago when the patient kept on getting up from bed so many times during the nighttime that her stated to try trazodone again. She was given trazodone and subsequently continued to get out of bed several times until she finally fell asleep and she slept for 18 hours straight. Finally, her decided to get her out of bed and tired to wake her up to use the bathroom. He tried to do that. The patient's stated that the patient was half asleep and she has "slumped over". As per the patient's , she did not hit anything. Subsequently, he brought her to the ED for evaluation. Here, the patient is still lethargic, but able to answer to most of the questions appropriately. She is going to be placed on overnight observation which gentle intravenous hydration. PAST MEDICAL HISTORY: 1. Dementia. 2. History of coronary disease, status post coronary bypass grafting. 3. Diet controlled diabetes. 4. History of atrial fibrillation, on anticoagulation with Eliquis. 5. History of wrist fracture and repair. 6. History of osteoarthritis in both legs. MEDICATIONS: Include: 1. Apixaban 5 mg b.i.d. 2. Bystolic 5 mg b.i.d. 3. Atorvastatin 20 mg b.i.d. 4. Aspirin 81 mg p.o. b.i.d. 5. Acetaminophen on a p.r.n. basis. 6. Trazodone at unknown dose on as needed basis at night. 7. Oxycodone 5 mg up to 6 times a day. Last time the patient took an oxycodone was 2 days ago. ALLERGIES: SULFA. FAMILY HISTORY: Positive for father with heart disease. SOCIAL HISTORY: The patient has history of dementia. The patient's has a chair inspector taking care of the patient several hours a day for a total of 5 days out of 7 in a week. The patient ambulates at a baseline with a roller walker. There is no significant history of alcohol, tobacco or drug use. The patient's is her surrogate. REVIEW OF SYSTEMS: Unobtainable from the patient, who is very lethargic. PHYSICAL EXAMINATION GENERAL: The patient is 78-year-old female who is lying in bed with eyes closed. After asking the patient to open eyes multiple times, she was able to open her eyes and follow simple commands before drifting off to sleep. VITAL SIGNS: Blood pressure of 159/73, heart rate of 92 and regular, respiratory rate 31, oxygen saturation 92% on 3 L of oxygen with a nasal cannula , temperature of 98.8. HEENT: Head: Atraumatic, normocephalic. Eyes: Pupils are equal and reactive to light and accommodation. Oropharynx clear. Mucosa moist. NECK: Supple. No JVD, no bruits bilaterally. RESPIRATORY: Clear to auscultation bilaterally. CARDIOVASCULAR: Regular rate and rhythm. No murmur. ABDOMEN: Soft, nontender. Bowel sounds are present in all 4 quadrants. EXTREMITIES: There is trace ankle edema bilaterally. Pulses are +2 bilaterally. No clubbing or cyanosis. NEUROLOGIC: On neuro evaluation, speech is clear. Cranial nerves II through XII grossly intact. Motor strength is 5/5 bilaterally. DIAGNOSTIC STUDIES/LAB DATA: Laboratory data showed white blood cell count of 11.7, hemoglobin of 14.6, hematocrit of 44, and platelets of 177. Sodium 136, potassium 4.3, chloride 101, carbon dioxide 25, BUN 20, creatinine 1.06. Liver function test showed bilirubin of 1.9, alkaline phosphatase of 107. AST and AST are unremarkable. Brain CT, impression: "No acute intracranial abnormality". Age related atrophy and moderate chronic small vessel ischemic changes ". Portable chest x-ray as read by myself prior to the official radiologist's report shows normal cardiac silhouette. No evidence of pulmonary abnormalities. The patient's EKG showed sinus rhythm with a heart rate of 93 beats per minute with motion artifact and negative T-waves in leads V1 to V3, compared with EKG from 2017. The patient at that point appeared to be in atrial fibrillation. ASSESSMENT AND PLAN: 1. The patient is lethargic after use of trazodone. Has history of dementia. She is going to be placed on overnight observation on medical floor with gentle intravenous fluids. 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 2. History of atrial fibrillation, currently appears to be in sinus rhythm. Her Bystolic and apixaban is going to be continued. 3. For DVT prophylaxis, the patient is going to be continued on apixaban as previously taken. TIME SPENT: Approximately 62 minutes was spent on admission of this patient, more than half of that time was spent [id number] with the patient and the patient's in the patient's room during the evaluation and history and physical taking. [id number]/[facility] #: [id number] LINDA
[2018-08-25] MEDS ORDERED: NEBIVOLOL 5 MG PO SCH ×2 (09:00→11:00)
[2018-08-25] MEDS: Atorvastatin* 20 MG TAB PO SCH (11:03)
[2018-08-25] MEDS: Apixaban* 5 MG TAB PO SCH ×2 (11:03→21:36)
[2018-08-25] MEDS: Aspirin EC TAB* 81 MG TAB.EC PO SCH (11:03)
[2018-08-25] MEDS: CMC:Nebivolol TAB (NF) 2.5 MG TAB PO SCH (11:12)
[2018-08-25] MEDS ORDERED: Acetaminophen SUPP* 650 MG SUPP PR PRN ×2 (16:30→16:33)
[2018-08-25] MEDS ORDERED: Acetaminophen SUPP* 650 MG SUPP ONE (16:32)
--- NOTE | 2018-08-25 16:53 | PN ---
Subjective Date of Service: 08/25/18 Interval History: VS: febrile Lab: mild leukocytosis, elevated CR (baseline), hyperbilirubinemia Pt is somnolent and does not wake to verbal commands. Wakes with arm shaking, but does not respond to questioning. This appears to be intermittent since admission, although she reportedly did wake some to eat breakfast. She is febrile now. Nursing reports foul smelling urine. Objective Active Medications: Acetaminophen (Tylenol Tab*) 650 mg PO Q4H PRN Acetaminophen (Tylenol Supp*) 650 mg GA Q6H PRN Apixaban (Eliquis*) 5 mg PO BID [facility] Aspirin (Aspirin Ec Tab*) 81 mg PO DAILY [facility] Atorvastatin Calcium (Lipitor*) 20 mg PO DAILY [facility] Sodium Chloride (Ns 0.9% 1000 Ml) 1,000 mls @ 75 mls/hr IV PER RATE [facility] Nebivolol (Bystolic Tab (Nf)) 5 mg PO DAILY@0900 [facility] Oxycodone/Acetaminophen (Percocet 5/325 Tab*) 1 tab PO Q4H PRN Vital Signs: Temp Pulse Resp BP Pulse Ox 104.4 F 106 16 136/51 95 08/25/18 16:02 08/25/18 15:56 08/25/18 15:56 08/25/18 15:56 08/25/18 15:56 Oxygen Devices in Use Now: Nasal Cannula Appearance: Pt somnolent. Wakes with arm shake, but dozes back to sleep. Eyes: No Scleral Icterus, PERRLA Ears/Nose/Mouth/Throat: NL Teeth, Lips, Gums Neck: - - No LAD Respiratory: Symmetrical Chest Expansion and Respiratory Effort, Clear to Auscultation Cardiovascular: NL Sounds; No Murmurs; No JVD, RRR, No Edema Abdominal: No Hepatosplenomegaly - BS all quadrants. Diffuse TTP with RUQ > rest. No apparent distention Result Diagrams: 08/25/18 01:37 08/25/18 01:37 Assess/Plan/Problems-Billing Assessment: 78yof PMHx CAD, AF, DM, dementia, OA who presents with lethargy possibley due to trazodone use. - Patient Problems (1) SIRS (systemic inflammatory response syndrome) Comment: -Intermittent tachy, febrile, mild leukocytosis, lethargy -Negative UA, CXR, lungs CTAB, loose stool x1 -Diffuse abd pain, RUQ seems more TTP; hyperbilirubin -US RUQ, repeat UA, influenza A/B ordered, pending -Ceftriaxone ordered (2) Atrial fibrillation Comment: -Continue Nebivolol and Eliquis (3) CAD (coronary artery disease) Comment: -Continue ASA, Lipitor (4) Diabetes Comment: -Not on home medications (5) DVT prophylaxis Comment: -Eliquis
[2018-08-25] MEDS ORDERED: cefTRIAXone(*) 1 GM in NS 0.9% 50 ML* 50 ML IVPB SCH (18:00)
[2018-08-25 18:29] LABS: Urine Appearance Clear; Urine Bacteria 3+ (Absent); Urine Bilirubin Negative (Negative); Urine Blood 1+ (Negative); Urine Color Amber; Urine Glucose Negative (Negative); Urine Ketones Negative (Negative); Urine Nitrite Negative (Negative); Urine Protein 1+(30 mg/dL) (Negative); Urine Red Blood Cell 1+(3-5/hpf) (Absent); Urine Specific Gravity 1.021 (1.010-1.030); Urine Squamous Epithelial Cell Present (Absent); Urine Urobilinogen Negative (Negative); Urine White Blood Cell Trace(0-5/hpf) (Absent)
[2018-08-25 18:31] LABS: Influenza A Molecular NEGATIVE (Negative); Influenza B Molecular NEGATIVE (Negative)
[2018-08-26 05:39] LABS: ABS Lymphocytes 0.4 10^3/ul (1.0-4.8); ABS Monocytes 0.3 10^3/ul (0-0.8); ABS Neutrophils 7.3 10^3/ul (1.5-7.7); Hematocrit 40 % (35-47); Hemoglobin 13.2 g/dL (12.0-16.0); Lymphocyte % 5.4 %; Mean Corpuscular HGB Conc 33 g/dL (31-36); Mean Corpuscular Hemoglobin 29 pg (27-31); Mean Corpuscular Volume 87 fL (80-97); Mean Platelet Volume 9.8 fL (7.4-10.4); Nucleated Red Blood Cells % 0.1; Platelet Count 151 10^3/uL (150-450); Red Cell Distribution Width 16 % (10.5-15); White Blood Count 8.1 10^3/uL (3.5-10.8)
[2018-08-26 06:01] LABS: Albumin/Globulin Ratio 0.9 (1-3); BUN/Creatinine Ratio 26.2 (8-20); Calcium 9.2 mg/dL (8.6-10.3); EGFR African American 35.6 (>60); EGFR Non-African American 29.4 (>60); Globulin 3.3 g/dL (2-4); Potassium 3.9 mmol/L (3.5-5.0); Total Bilirubin 1.5 mg/dL (0.2-1.0); Total Protein 6.3 g/dL (6.4-8.9)
[2018-08-26] MEDS: CMC:Nebivolol TAB (NF) 2.5 MG TAB PO SCH (08:29)
[2018-08-26] MEDS: Aspirin EC TAB* 81 MG TAB.EC PO SCH (08:29)
[2018-08-26] MEDS: Apixaban* 5 MG TAB PO SCH ×2 (08:29→20:15)
[2018-08-26] MEDS: Atorvastatin* 20 MG TAB PO SCH (08:29)
[2018-08-26 08:32] LABS: Indirect Bilirubin 1.1 mg/dL (0.3-1.0)
[2018-08-26] MEDS: NS 0.9% 1000 ML** 1,000 ML IV SCH ×2 (08:52→20:42)
--- NOTE | 2018-08-26 14:24 | PN ---
Subjective Date of Service: 08/26/18 Interval History: Patient is resting in recliner with at bedside upon assessment. She responds to voice and answers simple questions, but does not open her eyes. Her reports this is the most responsive she has been since Tuesday evening. Patient engages in ROS with simple response. Denies cp, sob, nausea. Reports abd pain. Patient follows simple commands. Objective Active Medications: Acetaminophen (Tylenol Tab*) 650 mg PO Q4H PRN PRN Reason: FEVER/PAIN Acetaminophen (Tylenol Supp*) 650 mg WA Q6H PRN PRN Reason: FEVER Last Admin: 08/25/18 21:36 Dose: 650 mg Acetaminophen (Tylenol Supp*) 650 mg WA Q6H PRN PRN Reason: PAIN or FEVER Apixaban (Eliquis*) 5 mg PO BID [facility] Last Admin: 08/26/18 08:29 Dose: 5 mg Aspirin (Aspirin Ec Tab*) 81 mg PO DAILY [facility] Last Admin: 08/26/18 08:29 Dose: 81 mg Atorvastatin Calcium (Lipitor*) 20 mg PO DAILY [facility] Last Admin: 08/26/18 08:29 Dose: 20 mg Ceftriaxone Sodium 1 gm/ (Sodium Chloride) 50 mls @ 200 mls/hr IVPB Q24H [facility] Last Admin: 08/25/18 18:21 Dose: 200 mls/hr Sodium Chloride (Ns 0.9% 1000 Ml) 1,000 mls @ 75 mls/hr IV PER RATE [facility] Last Admin: 08/26/18 08:52 Dose: 75 mls/hr Nebivolol (Bystolic Tab (Nf)) 5 mg PO DAILY@0900 [facility] Last Admin: 08/26/18 08:29 Dose: 5 mg Oxycodone/Acetaminophen (Percocet 5/325 Tab*) 1 tab PO Q4H PRN PRN Reason: Pain Vital Signs - 8 hr 08/26/18 08/26/18 07:08 11:47 Temperature 100.9 F 98.9 F Pulse Rate 79 80 Respiratory 18 17 Rate Blood Pressure 118/52 117/55 (mmHg) O2 Sat by Pulse 92 90 Oximetry Oxygen Devices in Use Now: None Appearance: Comfortable, NAD Eyes: No Scleral Icterus Ears/Nose/Mouth/Throat: Clear Oropharnyx, Mucous Membranes Moist Neck: NL Appearance and Movements; NL JVP Respiratory: Symmetrical Chest Expansion and Respiratory Effort, Clear to Auscultation Cardiovascular: NL Sounds; No Murmurs; No JVD, RRR, No Edema Abdominal: - - Soft, nondistended. Reports pain to palpation of suprapubic region. No upper right quad pain. Lymphatic: No Cervical Adenopathy Extremities: No Edema Skin: No Rash or Ulcers Neurological: NL Muscle Strength and Tone, - - Alert to self and place. Engages min in neuro exam only completing strength assessment Nutrition: Taking PO's Result Diagrams: 08/26/18 05:14 08/26/18 05:14 Additional Lab and Data: Laboratory Results - last 24 hr 08/25/18 08/25/18 08/26/18 17:30 18:04 05:14 WBC 8.1 RBC 4.60 Hgb 13.2 Hct 40 MCV 87 MCH 29 MCHC 33 RDW 16 H Plt Count 151 MPV 9.8 Neut % (Auto) 91.2 Lymph % (Auto) 5.4 [place] % (Auto) 3.3 Eos % (Auto) 0.0 Baso % (Auto) 0.1 Absolute Neuts (auto) 7.3 Absolute Lymphs (auto) 0.4 L Absolute Monos (auto) 0.3 Absolute Eos (auto) 0.0 Absolute Basos (auto) 0.0 Absolute Nucleated RBC 0.0 Nucleated RBC % 0.1 Sodium Potassium Chloride Carbon Dioxide Anion Gap BUN Creatinine Est GFR ( Amer) Est GFR (Non-Af Amer) BUN/Creatinine Ratio Glucose Calcium Total Bilirubin Direct Bilirubin Indirect Bilirubin AST ALT Alkaline Phosphatase Total Protein Albumin Globulin Albumin/Globulin Ratio Urine Color Lakeisha Urine Appearance Clear Urine pH 5.0 Ur Specific [place] 1.021 Urine Protein 1+(30 mg/dl) A Urine Ketones Negative Urine Blood 1+ A Urine Nitrate Negative Urine Bilirubin Negative Urine Urobilinogen Negative Ur Leukocyte Esterase Negative Urine WBC (Auto) Trace(0-5/hpf) Urine RBC (Auto) 1+(3-5/hpf) A Ur Squamous Epith Cells Present A Urine Bacteria 3+ A Hyaline Casts Present A Urine Glucose Negative Urine Ascorbic Acid * A Influenza A (Rapid) Negative Influenza B (Rapid) Negative 08/26/18 05:14 WBC RBC Hgb Hct MCV MCH MCHC RDW Plt Count MPV Neut % (Auto) Lymph % (Auto) [place] % (Auto) Eos % (Auto) Baso % (Auto) Absolute Neuts (auto) Absolute Lymphs (auto) Absolute Monos (auto) Absolute Eos (auto) Absolute Basos (auto) Absolute Nucleated RBC Nucleated RBC % Sodium 138 Potassium 3.9 Chloride 107 Carbon Dioxide 24 Anion Gap 7 BUN 44 H Creatinine 1.68 H Est GFR ( Amer) 35.6 Est GFR (Non-Af Amer) 29.4 BUN/Creatinine Ratio 26.2 H Glucose 142 H Calcium 9.2 Total Bilirubin 1.50 H Direct Bilirubin 0.40 H Indirect Bilirubin 1.1 H AST 25 ALT 18 Alkaline Phosphatase 75 Total Protein 6.3 L Albumin 3.0 L Globulin 3.3 Albumin/Globulin Ratio 0.9 L Urine Color Urine Appearance Urine pH Ur Specific [place] Urine Protein Urine Ketones Urine Blood Urine Nitrate Urine Bilirubin Urine Urobilinogen Ur Leukocyte Esterase Urine WBC (Auto) Urine RBC (Auto) Ur Squamous Epith Cells Urine Bacteria Hyaline Casts Urine Glucose Urine Ascorbic Acid Influenza A (Rapid) Influenza B (Rapid) Microbiology and Other Data: Assess/Plan/Problems-Billing Assessment: 78yof PMHx CAD, AF, DM, dementia, OA who presents with lethargy possibley due to trazodone use. - Patient Problems (1) SIRS (systemic inflammatory response syndrome) Current Visit: Yes Status: Acute Code(s): R65.10 - SIRS OF NON-INFECTIOUS ORIGIN W/O ACUTE ORGAN DYSFUNCTION SNOMED Code(s): 894853383 Comment: - Previously intermittent tachy, febrile, mild leukocytosis, lethargy - Negative UA and culture. Was repeat and awaiting second culture - US RUQ revealed sludge, abx broadened to zosyn - Blood cultures ordered - IVF ordered (2) Lethargy Comment: - Suspected secondary to toxic encephalopathy and medication - Patient is more responsive today per as she is responding to verbal ques, but she is still significantly altered from baseline as she was walking with walker or assist on Tuesday. - Increase lethargy could be multifactorial given she was given Trazadone ( although this was given Tuesday evening) and infectious given elevated wbc, recorded fever of up to 104.4, and transient tachycardiac (3) Fever Comment: - Highest recorded yesterday of 104.4 - Blood cultures ordered as she did meet sepsis criteria yesterday. - Given no growth on initial urine cultures and continues fevers last evening, I will broaded abx to Zosyn - Urine was repeated yesterday I suspected given spike in fever, still awaiting second urine culture which has been ordered and lab contacted. (4) SHERRY (acute kidney injury) Comment: - Increased in creatinine from yesterday. - IVF ordered - Repeat creatinine tomorrow (5) Urinary tract infection Comment: - Initial urinalysis revealed no growth. It appears a second was obtained later when patient had fever. Awaiting culture. - Broadened abx coverage (6) Abdominal pain Comment: - Reports abd pain and is tender in suprapubic region - Ultrasound of gallbladder last evening revealed gallbladder sludge. Total billirubin elevated yesterday and still elevated today, but slightly decreased. Direct and Indirect both elevated. - Negative Garza's Sign. - Abx broaded to cover abd source - Trend LFTs (7) Atrial fibrillation Comment: -Continue Nebivolol and Eliquis (8) CAD (coronary artery disease) Comment: -Continue ASA, Lipitor (9) Dementia Comment: - Dementia at baseline (10) Diabetes Comment: -Not on home medications (11) DVT prophylaxis Comment: -Eliquis Status and Disposition: Inpatient. Rehab hopefully when medically stable. Attending: Brian Poe
[2018-08-26] MEDS ORDERED: Piperacillin/Tazobac ADVAN(*) 3.375 GM in NS 0.9% 100 ML* 100 ML IVPB ONE (15:30)
[2018-08-26] MEDS ORDERED: Zosyn per Pharmacy* NOTE FOLLOW UP SCH (16:00)
[2018-08-26] MEDS ORDERED: NS 0.9% 500 ML* 500 ML IV ONE (20:10)
[2018-08-26] MEDS: Acetaminophen TAB* 325 MG PO PRN (20:15)
[2018-08-26] MEDS: ZOSYN 3.375 GM Q8H per EXTENDED INFUSION IVPB SCH ×2 (20:20)
[2018-08-27] MEDS: ZOSYN 3.375 GM Q8H per EXTENDED INFUSION IVPB SCH ×6 (04:27→19:43)
[2018-08-27 05:48] LABS: ABS Lymphocytes 0.3 10^3/ul (1.0-4.8); ABS Monocytes 0.2 10^3/ul (0-0.8); ABS Neutrophils 6.5 10^3/ul (1.5-7.7); Hematocrit 37 % (35-47); Hemoglobin 12.5 g/dL (12.0-16.0); Mean Corpuscular HGB Conc 34 g/dL (31-36); Mean Corpuscular Hemoglobin 29 pg (27-31); Mean Corpuscular Volume 86 fL (80-97); Nucleated Red Blood Cells % 0.1; Platelet Count 127 10^3/uL (150-450); Red Blood Count 4.29 10^6 /uL (3.70-4.87); Red Cell Distribution Width 16 % (10.5-15)
[2018-08-27 06:20] LABS: Albumin 2.7 g/dL (3.2-5.2); Albumin/Globulin Ratio 0.9 (1-3); BUN/Creatinine Ratio 40.8 (8-20); Calcium 8.7 mg/dL (8.6-10.3); EGFR African American 47.8 (>60); EGFR Non-African American 39.5 (>60); Globulin 3.1 g/dL (2-4); Indirect Bilirubin 0.9 mg/dL (0.3-1.0); Potassium 3.4 mmol/L (3.5-5.0); Total Bilirubin 1.3 mg/dL (0.2-1.0); Total Protein 5.8 g/dL (6.4-8.9)
[2018-08-27 08:55] LABS: INR 1.56 (0.82-1.09)
[2018-08-27] MEDS: Apixaban* 5 MG TAB PO SCH ×2 (08:58→21:56)
[2018-08-27] MEDS: Atorvastatin* 20 MG TAB PO SCH (08:58)
[2018-08-27] MEDS: Aspirin EC TAB* 81 MG TAB.EC PO SCH (08:58)
[2018-08-27] MEDS: CMC:Nebivolol TAB (NF) 2.5 MG TAB PO SCH (08:58)
--- NOTE | 2018-08-27 12:58 | PN ---
Subjective Date of Service: 08/27/18 Interval History: Patient slightly more alert today. Responds to voice and increase engagement in ROS. Reports abd pain. Denies cp, sob, nausea. Patient continues to have fevers intermittently as documented overnight. Nurses expressing concern due to liquid stool and increase in frequency. Objective Active Medications: Acetaminophen (Tylenol Tab*) 650 mg PO Q4H PRN PRN Reason: FEVER/PAIN Last Admin: 08/26/18 20:15 Dose: 650 mg Acetaminophen (Tylenol Supp*) 650 mg [place] Q6H PRN PRN Reason: FEVER Last Admin: 08/25/18 21:36 Dose: 650 mg Acetaminophen (Tylenol Supp*) 650 mg [place] Q6H PRN PRN Reason: PAIN or FEVER Apixaban (Eliquis*) 5 mg PO BID [facility] Last Admin: 08/27/18 08:58 Dose: 5 mg Aspirin (Aspirin Ec Tab*) 81 mg PO DAILY [facility] Last Admin: 08/27/18 08:58 Dose: 81 mg Atorvastatin Calcium (Lipitor*) 20 mg PO DAILY [facility] Last Admin: 08/27/18 08:58 Dose: 20 mg Piperacillin Sod/Tazobactam (Sod 3.375 gm/ Sodium Chloride) 100 mls @ 25 mls/ hr IVPB Q8H [facility] Last Admin: 08/27/18 04:27 Dose: 25 mls/hr Nebivolol (Bystolic Tab (Nf)) 5 mg PO DAILY@0900 [facility] Last Admin: 08/27/18 08:58 Dose: 5 mg Oxycodone/Acetaminophen (Percocet 5/325 Tab*) 1 tab PO Q4H PRN PRN Reason: Pain Pharmacy Consult (Zosyn Per Pharmacy*) 1 note FOLLOW UP .ZOSYN PER PHARMACY [facility] Vital Signs - 8 hr 08/27/18 08/27/18 07:38 08:00 Temperature 99.1 F Pulse Rate 84 Respiratory 18 18 Rate Blood Pressure 123/93 (mmHg) O2 Sat by Pulse 93 Oximetry Oxygen Devices in Use Now: Nasal Cannula Appearance: Comfortable, NAD. Eyes closed unless asked to open eyes. Eyes: No Scleral Icterus, PERRLA Ears/Nose/Mouth/Throat: Clear Oropharnyx, Mucous Membranes Moist Neck: NL Appearance and Movements; NL JVP Respiratory: Symmetrical Chest Expansion and Respiratory Effort, Clear to Auscultation Cardiovascular: - - Tender to palpation mid abd slight above ambilicus. Also possible hernia palpated. BS+. Not distended. No rebound tenderness. Lymphatic: No Cervical Adenopathy Extremities: No Edema Skin: No Rash or Ulcers Neurological: NL Muscle Strength and Tone, - - Alert to self only. Nutrition: - - Taking PO if she is fed Result Diagrams: 08/27/18 05:18 08/27/18 05:18 Additional Lab and Data: Laboratory Results - last 24 hr 08/26/18 08/27/18 08/27/18 20:42 05:18 05:18 WBC 7.0 RBC 4.29 Hgb 12.5 Hct 37 MCV 86 MCH 29 MCHC 34 RDW 16 H Plt Count 127 L MPV 10.0 Neut % (Auto) 92.7 Lymph % (Auto) 4.0 [place] % (Auto) 3.2 Eos % (Auto) 0.0 Baso % (Auto) 0.1 Absolute Neuts (auto) 6.5 Absolute Lymphs (auto) 0.3 L Absolute Monos (auto) 0.2 Absolute Eos (auto) 0.0 Absolute Basos (auto) 0.0 Absolute Nucleated RBC 0.0 Nucleated RBC % 0.1 INR (Anticoag Therapy) Sodium 142 Potassium 3.4 L Chloride 114 H Carbon Dioxide 20 L Anion Gap 8 BUN 53 H Creatinine 1.30 H Est GFR ( Amer) 47.8 Est GFR (Non-Af Amer) 39.5 BUN/Creatinine Ratio 40.8 H Glucose 133 H Lactic Acid 1.7 Calcium 8.7 Total Bilirubin 1.30 H Direct Bilirubin 0.40 H Indirect Bilirubin 0.9 AST 18 ALT 14 Alkaline Phosphatase 62 Total Protein 5.8 L Albumin 2.7 L Globulin 3.1 Albumin/Globulin Ratio 0.9 L 08/27/18 08:30 WBC RBC Hgb Hct MCV MCH MCHC RDW Plt Count MPV Neut % (Auto) Lymph % (Auto) [place] % (Auto) Eos % (Auto) Baso % (Auto) Absolute Neuts (auto) Absolute Lymphs (auto) Absolute Monos (auto) Absolute Eos (auto) Absolute Basos (auto) Absolute Nucleated RBC Nucleated RBC % INR (Anticoag Therapy) 1.56 H Sodium Potassium Chloride Carbon Dioxide Anion Gap BUN Creatinine Est GFR ( Amer) Est GFR (Non-Af Amer) BUN/Creatinine Ratio Glucose Lactic Acid Calcium Total Bilirubin Direct Bilirubin Indirect Bilirubin AST ALT Alkaline Phosphatase Total Protein Albumin Globulin Albumin/Globulin Ratio Microbiology and Other Data: Microbiology 08/25/18 18:04 Urine Urine Culture - Preliminary Escherichia Coli 08/25/18 01:57 Urine Urine Culture - Final Assess/Plan/Problems-Billing Assessment: 78yof PMHx CAD, AF, DM, dementia, OA who presents with lethargy possibley due to trazodone use. - Patient Problems (1) Diarrhea Comment: - Nurse's concerned about liquid diarrhea and increase in frequency. - Stool studies ordered. (2) SIRS (systemic inflammatory response syndrome) Comment: - Continues to have intermittent fevers. No longer tachy and leukocytosis has improved. - Lactic wnl. - 1st UA had negative culture. Repeat UA grew Ecoli. - US RUQ revealed sludge - Was started on Rocephin, but due to intermittent fevers and abd pain abx was changed to Zosyn. Continue Zosyn. - Blood cultures ordered and pending. - Cont IVF (3) Lethargy Comment: - Suspected secondary to toxic encephalopathy and medication - Patient is slightly responsive today but she is still significantly altered from baseline as she was walking with walker or assist on Tuesday and currently needs justino (4) Fever Comment: - Highest recorded 08/25 of 104.4. Continues to have intermittent fevers. - Cont Zosyn as it was started yesterday afternoon. - Blood cultures pending - 1st UA had negative culture. Repeat UA grew Ecoli. - Chest xray unremarkable (5) SHERRY (acute kidney injury) Comment: - Increased in creatinine from baseline - Slowly improving with IVF - Cont IVF - Follow creatinine (6) Urinary tract infection Comment: - 1st UA had negative culture. Repeat UA grew Ecoli. - Cont Zosyn for now (7) Abdominal pain Comment: - Reports abd pain and tender in mid abd. - CT ordered. - US revealed gallbladder sludge. - Billirubin elevated on admission but trending down. - Alk Phos elevated on admission, but now wnl - Negative Garza's Sign. - Cont Zosyn to cover abd source - Trend LFTs (8) Atrial fibrillation Comment: -Continue Nebivolol and Eliquis (9) CAD (coronary artery disease) Comment: -Continue ASA, Lipitor (10) Dementia Comment: - Dementia at baseline (11) Diabetes Comment: -Not on home medications (12) DVT prophylaxis Comment: -Eliquis Status and Disposition: Inpatient. Rehab hopefully when medically stable.
[2018-08-27] MEDS ORDERED: Iodixanol* (CONTRAST) 320 MG/ML 100 ML SDV IV ONE (13:11)
[2018-08-27] MEDS: Lactated Ringers 1000 ML Bag* 1,000 ML IV SCH (14:19)
[2018-08-27] MEDS: Vancomycin CAP* 125 MG CAP PO SCH ×2 (17:13→21:56)
[2018-08-27] MEDS: Acetaminophen TAB* 325 MG PO PRN (19:43)
[2018-08-28] MEDS: ZOSYN 3.375 GM Q8H per EXTENDED INFUSION IVPB SCH ×6 (04:02→20:27)
[2018-08-28 05:08] LABS: ABS Lymphocytes 0.3 10^3/ul (1.0-4.8); ABS Monocytes 0.3 10^3/ul (0-0.8); ABS Neutrophils 6.9 10^3/ul (1.5-7.7); Eosinophil % 0.4 %; Hematocrit 37 % (35-47); Hemoglobin 12.2 g/dL (12.0-16.0); Lymphocyte % 3.9 %; Mean Corpuscular HGB Conc 33 g/dL (31-36); Mean Corpuscular Hemoglobin 29 pg (27-31); Mean Corpuscular Volume 87 fL (80-97); Mean Platelet Volume 10.2 fL (7.4-10.4); Nucleated Red Blood Cells % 0.2; Platelet Count 132 10^3/uL (150-450); Red Blood Count 4.27 10^6 /uL (3.70-4.87); Red Cell Distribution Width 16 % (10.5-15); White Blood Count 7.5 10^3/uL (3.5-10.8)
[2018-08-28] MEDS: Lactated Ringers 1000 ML Bag* 1,000 ML IV SCH ×2 (05:53→20:57)
[2018-08-28 06:21] LABS: Albumin 2.6 g/dL (3.2-5.2); Calcium 9.1 mg/dL (8.6-10.3); Indirect Bilirubin 0.9 mg/dL (0.3-1.0); Potassium 3.1 mmol/L (3.5-5.0); Total Bilirubin 1.7 mg/dL (0.2-1.0)
[2018-08-28 06:27] LABS: Albumin/Globulin Ratio 0.8 (1-3); BUN/Creatinine Ratio 36.5 (8-20); EGFR African American 49.6 (>60); Globulin 3.3 g/dL (2-4); Total Protein 5.9 g/dL (6.4-8.9)
[2018-08-28] MEDS: Aspirin EC TAB* 81 MG TAB.EC PO SCH (09:21)
[2018-08-28] MEDS: CMC:Nebivolol TAB (NF) 2.5 MG TAB PO SCH (09:22)
[2018-08-28] MEDS: Lactobacillus Acidophilus* 1 TAB PO SCH (09:22)
[2018-08-28] MEDS: Atorvastatin* 20 MG TAB PO SCH (09:22)
[2018-08-28] MEDS: Vancomycin CAP* 125 MG CAP PO SCH ×4 (09:22→21:26)
[2018-08-28] MEDS: Apixaban* 5 MG TAB PO SCH (09:22)
[2018-08-28 09:53] LABS: Magnesium 2.1 mg/dL (1.9-2.7)
[2018-08-28] MEDS: KCL 20 MEQ/100 ML IVPREMIX* 20 MEQ/100 ML BAG IV SCH ×2 (11:25→15:38)
--- NOTE | 2018-08-28 12:14 | PN ---
Subjective Date of Service: 08/28/18 Interval History: . Patient laying in bed resting; appears comfortable - awakes easily to voice. Is able to tell me where she is and that she has abdominal pain, is not able to tell me what year it is - she is confused talking about needing to "sew something" She has noted RUQ pain - slight guarding. She denies any N/V. Denies any fevers or chills - however is unreliable to review accurate ROS Objective Active Medications: Acetaminophen (Tylenol Tab*) 650 mg PO Q4H PRN PRN Reason: FEVER/PAIN Last Admin: 08/27/18 19:43 Dose: 650 mg Acetaminophen (Tylenol Supp*) 650 mg [place] Q6H PRN PRN Reason: FEVER Last Admin: 08/25/18 21:36 Dose: 650 mg Acetaminophen (Tylenol Supp*) 650 mg MT Q6H PRN PRN Reason: PAIN or FEVER Apixaban (Eliquis*) 5 mg PO BID [facility] Last Admin: 08/28/18 09:22 Dose: 5 mg Aspirin (Aspirin Ec Tab*) 81 mg PO DAILY [facility] Last Admin: 08/28/18 09:21 Dose: Not Given Atorvastatin Calcium (Lipitor*) 20 mg PO DAILY [facility] Last Admin: 08/28/18 09:22 Dose: Not Given Piperacillin Sod/Tazobactam (Sod 3.375 gm/ Sodium Chloride) 100 mls @ 25 mls/ hr IVPB Q8H [facility] Last Admin: 08/28/18 04:02 Dose: 25 mls/hr Lactated Ringer's (Lactated Ringers 1000 Ml Bag*) 1,000 mls @ 75 mls/hr IV PER RATE [facility] Last Admin: 08/28/18 05:53 Dose: 75 mls/hr Potassium Chloride (Potassium Chloride 20 Meq/100 Ml Ivpremix*) 20 meq in 100 mls @ 50 mls/hr IV Q2H [facility] Stop: 08/28/18 12:59 Last Admin: 08/28/18 11:25 Dose: 50 mls/hr Lactobacillus Rhamnosus (Lactobacillus Acidophilus*) 1 tab PO DAILY [facility] Last Admin: 08/28/18 09:22 Dose: Not Given Nebivolol (Bystolic Tab (Nf)) 5 mg PO DAILY@0900 [facility] Last Admin: 08/28/18 09:22 Dose: 5 mg Oxycodone/Acetaminophen (Percocet 5/325 Tab*) 1 tab PO Q4H PRN PRN Reason: Pain Pharmacy Consult (Zosyn Per Pharmacy*) 1 note FOLLOW UP .ZOSYN PER PHARMACY [facility] Vancomycin HCl (Vancomycin Cap*) 125 mg PO QID [facility] Last Admin: 08/28/18 09:22 Dose: 125 mg Vital Signs - 8 hr 08/28/18 08/28/18 07:22 08:00 Temperature 98.1 F Pulse Rate 77 Respiratory 16 16 Rate Blood Pressure 157/70 (mmHg) O2 Sat by Pulse 96 Oximetry Oxygen Devices in Use Now: Nasal Cannula Appearance: elderly female layingin bed alert, confused, answers some questions appropriately Eyes: No Scleral Icterus, PERRLA Ears/Nose/Mouth/Throat: Mucous Membranes Moist Respiratory: Symmetrical Chest Expansion and Respiratory Effort, Clear to Auscultation Cardiovascular: NL Sounds; No Murmurs; No JVD, RRR, No Edema Abdominal: - - obese, slightly distended? RUQ tenderness - slight guarding Extremities: No Edema, No Clubbing, Cyanosis Skin: No Rash or Ulcers, No Nodules or Sclerosis Neurological: Alert and Oriented x 3, NL Muscle Strength and Tone Lines/Tubes/Other Access: Clean, Dry and Intact Peripheral IV Nutrition: Taking PO's Result Diagrams: 08/28/18 04:55 08/28/18 04:55 Additional Lab and Data: Laboratory Results - last 24 hr 08/26/18 08/27/18 08/27/18 20:42 05:18 05:18 WBC 7.0 RBC 4.29 Hgb 12.5 Hct 37 MCV 86 MCH 29 MCHC 34 RDW 16 H Plt Count 127 L MPV 10.0 Neut % (Auto) 92.7 Lymph % (Auto) 4.0 [place] % (Auto) 3.2 Eos % (Auto) 0.0 Baso % (Auto) 0.1 Absolute Neuts (auto) 6.5 Absolute Lymphs (auto) 0.3 L Absolute Monos (auto) 0.2 Absolute Eos (auto) 0.0 Absolute Basos (auto) 0.0 Absolute Nucleated RBC 0.0 Nucleated RBC % 0.1 INR (Anticoag Therapy) Sodium 142 Potassium 3.4 L Chloride 114 H Carbon Dioxide 20 L Anion Gap 8 BUN 53 H Creatinine 1.30 H Est GFR ( Amer) 47.8 Est GFR (Non-Af Amer) 39.5 BUN/Creatinine Ratio 40.8 H Glucose 133 H Lactic Acid 1.7 Calcium 8.7 Total Bilirubin 1.30 H Direct Bilirubin 0.40 H Indirect Bilirubin 0.9 AST 18 ALT 14 Alkaline Phosphatase 62 Total Protein 5.8 L Albumin 2.7 L Globulin 3.1 Albumin/Globulin Ratio 0.9 L 08/27/18 08:30 WBC RBC Hgb Hct MCV MCH MCHC RDW Plt Count MPV Neut % (Auto) Lymph % (Auto) [place] % (Auto) Eos % (Auto) Baso % (Auto) Absolute Neuts (auto) Absolute Lymphs (auto) Absolute Monos (auto) Absolute Eos (auto) Absolute Basos (auto) Absolute Nucleated RBC Nucleated RBC % INR (Anticoag Therapy) 1.56 H Sodium Potassium Chloride Carbon Dioxide Anion Gap BUN Creatinine Est GFR ( Amer) Est GFR (Non-Af Amer) BUN/Creatinine Ratio Glucose Lactic Acid Calcium Total Bilirubin Direct Bilirubin Indirect Bilirubin AST ALT Alkaline Phosphatase Total Protein Albumin Globulin Albumin/Globulin Ratio Microbiology and Other Data: Microbiology 08/25/18 18:04 Urine Urine Culture - Preliminary Escherichia Coli 08/25/18 01:57 Urine Urine Culture - Final Assess/Plan/Problems-Billing Assessment: 78yof PMHx CAD, AF, DM, dementia, OA who presents with lethargy, fevers suspect acute yue and cholangitis - Patient Problems (1) Fever Comment: - Concerned for acute yue and cholangtis - Highest recorded 08/25 of 104.4. Continues to have intermittent fevers last fever last evening 101 - since has been afebrile - Cont Zosyn started 08/26 and oral vanco for cdiff - Blood cultures NGTD - 1st UA had negative culture. Repeat UA grew Ecoli in the setting of diarrhea - Chest xray unremarkable (2) Abdominal pain Comment: - Suspect acute yue and cholangtis - CT obtained 08/27 showing GB distention, gallstone. Pt underwent MRCP 08/28 showing probable acute yue and intra and extrahepatic biliary dilitation - with stones visualized in the cystic and common bile duct - GI consult placed- plan for ERCP tomorrow - Billirubin elevated - Normal LFTs - Positive Garza's Sign. - Cont Zosyn - DC Eliquis for ERCP (last dose 08/28 @ 0900) (3) Diarrhea Comment: - CDIFF positive - Started on Oral Vanco 08/27 - Stool studies ordered and pending (4) SIRS (systemic inflammatory response syndrome) Comment: - resolved (5) SHERRY (acute kidney injury) Comment: - improving with IVF - Follow creatinine (6) Lethargy Comment: - Suspected secondary to toxic encephalopathy and medication; improving - Prior to hospital she was walking with walker or assist on Tuesday and currently needs justino (7) Urinary tract infection Comment: - 1st UA had negative culture. Repeat UA grew Ecoli in the setting of diarrhea. - Cont Zosyn for now (8) Atrial fibrillation Comment: -Continue Nebivolol - DC Eliquis for ERCP (9) CAD (coronary artery disease) Comment: -Continue ASA, Lipitor (10) Dementia Comment: - Dementia at baseline (11) Diabetes Comment: -Not on home medications - will add on HgA1C - elevated fasting bg (12) DVT prophylaxis Comment: - hold Eliquis - SCDs only Status and Disposition: Inpatient. Rehab hopefully when medically stable.
--- NOTE | 2018-08-28 21:24 | CONS ---
CONSULTATION REPORT: DATE OF CONSULT: 08/28/18 REFERRING PROVIDER: Jessiak Casas NP REASON FOR CONSULT: Cholelithiasis with probable cholecystitis and common bile duct stones. HISTORY OF PRESENT ILLNESS: Ms. Bhavani Vo is a 78-year-old woman, who was admitted on 08/15/18 after she was brought to the emergency room by her with main complaints of lethargy and mental status changes. She apparently been having trouble sleeping at night. On initial evaluation, she was noted to have a CT scan that showed no acute intracranial abnormality. Chest x-ray was unremarkable. She is on Apixaban for atrial fibrillation and this was continued. Laboratory evaluation noted just a mild elevation of white count. At that time , her total bilirubin was 1.9, but AST and ALT were unremarkable. She did undergo an ultrasound of her gallbladder, which showed some mild thickening in the wall with sludge in the gallbladder. The duct was not evaluated carefully. Over the past several days, once again she has been somnolent and had some persistent fevers up to 104 on the day #1. She was noted to have right upper quadrant abdominal pain and underwent a CT scan of the abdomen and pelvis. I did review these images. This showed a distended gallbladder with neymar- cholecystic fluid. There were gallstones noted. The common duct measured 10 mm and there was suggestion of high density material in the distal common duct a and a stone was not excluded. Today, she underwent an MRCP. This showed intra and extrahepatic biliary dilatation with choledocholithiasis i.e., several stone in the common bile duct , up to 0.9 cm and several smaller duct stones within the bile duct. Also findings of probable acute cholecystitis were noted. In addition, she was noted to be C. diff positive and she has been having multiple episodes of diarrhea. She has been started on vancomycin orally for this. In addition, she is now on Zostn IV for the biliary process. It appears that her last dose of Eliquis was 08/28/18 at 9:20. PAST MEDICAL HISTORY: All of these were obtained from the record as the patient is not oriented and is somewhat obtunded and unable to give the history or review of systems. 1. Dementia. 2. History of coronary artery disease status post bypass grafting. 3. Diet-controlled diabetes. 4. Atrial fibrillation. 5. Osteoarthritis. MEDICINES GIVEN ON ADMISSION: 1. Eliquis. 2. Bystolic. 3. Atorvastatin. 4. Aspirin. 5. Trazodone. 6. Oxycodone. ALLERGIES: To SULFA. FAMILY HISTORY: Per the chart is positive for father with heart disease. SOCIAL HISTORY: Apparently, she has a history of dementia. 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 Apparently, there is no history of alcohol, tobacco or drug abuse. REVIEW OF SYSTEMS: Unobtainable through the patient who is very lethargic and is only oriented to name. PHYSICAL EXAM: Temperature 99.7, pulse 60, blood pressure 152/68. In general, she is an elderly female who appears comfortable, but is oriented to name only. Lungs were clear to auscultation with normal respiratory effort. Heart was regular rate and rhythm. Her abdomen is firm and slightly distended. She has some tenderness in the right side of the abdomen. There is no generalized peritonitis. She appears to have a well-healed right lower quadrant transverse incision. IMPRESSION: 1. Choledocholithiasis with probable cholangitis as well as cholecytitis. She is now presently being treated with Zosyn. An MRCP done today confirms above. 2. Dementia. I am not certain of her baseline, but she is not able to give a history and there is no family present and further history will need to be obtained when the family is present. 3. Clostridium difficile colitis, on oral vancomycin. PLAN: 1. The patient has been started on IV Zosyn. 2. Dr. Martin Purvis has been consulted and tentatively planned for an ERCP tomorrow. 3. At some point, she will require a cholecystectomy, but at presently the primary goal is clearance of the common bile duct to prevent further worsening due to her cholangitis. She has apparently had cholecystitis for the past several days and after the ERCP we may consider treating her with IV and subsequent oral antibiotics or with percutaneous drainage with consideration of interval cholecystectomy in 6 to 8 weeks. We will make this decision after the ERCP is completed and how she is doing clinically. She will require medical evaluation prior to any surgical intervention. Thank you very much for this consultation. [id number]/[facility] #: [id number] LINDA
[2018-08-29] MEDS: ZOSYN 3.375 GM Q6H IVPB SCH ×6 (06:24→18:46)
[2018-08-29 06:48] LABS: ABS Eosinophils 0.1 10^3/ul (0-0.6); ABS Lymphocytes 0.4 10^3/ul (1.0-4.8); ABS Monocytes 0.4 10^3/ul (0-0.8); ABS Neutrophils 7.7 10^3/ul (1.5-7.7); Eosinophil % 0.8 %; Hematocrit 35 % (35-47); Hemoglobin 11.5 g/dL (12.0-16.0); Lymphocyte % 4.4 %; Mean Corpuscular HGB Conc 33 g/dL (31-36); Mean Corpuscular Hemoglobin 29 pg (27-31); Mean Corpuscular Volume 86 fL (80-97); Mean Platelet Volume 9.9 fL (7.4-10.4); Platelet Count 147 10^3/uL (150-450); Red Cell Distribution Width 17 % (10.5-15); White Blood Count 8.6 10^3/uL (3.5-10.8)
[2018-08-29 07:02] LABS: Albumin 2.5 g/dL (3.2-5.2); Albumin/Globulin Ratio 0.7 (1-3); BUN/Creatinine Ratio 37.8 (8-20); EGFR African American 73.1 (>60); EGFR Non-African American 60.4 (>60); Globulin 3.5 g/dL (2-4); Potassium 3.5 mmol/L (3.5-5.0)
[2018-08-29 09:10] LABS: C Reactive Protein 254.56 mg/L (<8.01)
[2018-08-29] MEDS: Lactobacillus Acidophilus* 1 TAB PO SCH (09:33)
[2018-08-29] MEDS: Aspirin EC TAB* 81 MG TAB.EC PO SCH (09:34)
[2018-08-29] MEDS: Vancomycin CAP* 125 MG CAP PO SCH ×5 (09:34→20:59)
[2018-08-29] MEDS: CMC:Nebivolol TAB (NF) 2.5 MG TAB PO SCH (09:34)
--- NOTE | 2018-08-29 09:55 | PN ---
Subjective Date of Service: 08/29/18 Interval History: patient is sleeping on my arrival; she opens eyes to voice. She denies any pain at rest. She does have RUQ pain with palpation but appears to be less than yesterday with no guarding today. Low grade temp but no noted fevers of > 101 for a little over 24 hours. No acute events overnight per nursing staff Objective Active Medications: Acetaminophen (Tylenol Tab*) 650 mg PO Q4H PRN PRN Reason: FEVER/PAIN Last Admin: 08/27/18 19:43 Dose: 650 mg Acetaminophen (Tylenol Supp*) 650 mg [place] Q6H PRN PRN Reason: PAIN or FEVER Aspirin (Aspirin Ec Tab*) 81 mg PO DAILY [facility] Last Admin: 08/29/18 09:34 Dose: 81 mg Lactated Ringer's (Lactated Ringers 1000 Ml Bag*) 1,000 mls @ 75 mls/hr IV PER RATE [facility] Last Admin: 08/28/18 20:57 Dose: 75 mls/hr Piperacillin Sod/Tazobactam (Sod 3.375 gm/ Sodium Chloride) 100 mls @ 200 mls/ hr IVPB Q6H [facility] Last Admin: 08/29/18 06:24 Dose: 200 mls/hr Lactobacillus Rhamnosus (Lactobacillus Acidophilus*) 1 tab PO DAILY [facility] Last Admin: 08/29/18 09:33 Dose: 1 tab Nebivolol (Bystolic Tab (Nf)) 5 mg PO DAILY@0900 [facility] Last Admin: 08/29/18 09:34 Dose: 5 mg Oxycodone/Acetaminophen (Percocet 5/325 Tab*) 1 tab PO Q4H PRN PRN Reason: Pain Pharmacy Consult (Zosyn Per Pharmacy*) 1 note FOLLOW UP .ZOSYN PER PHARMACY [facility] Vancomycin HCl (Vancomycin Cap*) 125 mg PO QID [facility] Last Admin: 08/29/18 09:34 Dose: 125 mg Vital Signs - 8 hr 08/29/18 08/29/18 08/29/18 03:30 07:15 07:40 Temperature 99.5 F 99.9 F Pulse Rate 77 75 Respiratory 24 21 24 Rate Blood Pressure 144/74 152/70 (mmHg) O2 Sat by Pulse 96 96 Oximetry Oxygen Devices in Use Now: Nasal Cannula Appearance: 78 yo female alert, lethargic - confused Eyes: No Scleral Icterus, PERRLA Ears/Nose/Mouth/Throat: Mucous Membranes Moist Respiratory: Symmetrical Chest Expansion and Respiratory Effort, Clear to Auscultation Cardiovascular: NL Sounds; No Murmurs; No JVD, RRR, No Edema Abdominal: - - distended, soft, mild-mod tenderness to RUQ with deep palpation; NL BS Extremities: No Edema, No Clubbing, Cyanosis Neurological: - - alert, confused Lines/Tubes/Other Access: Clean, Dry and Intact Peripheral IV Nutrition: - - NPO Result Diagrams: 08/29/18 06:39 08/29/18 06:39 Additional Lab and Data: Laboratory Results - last 24 hr 08/26/18 08/27/18 08/27/18 20:42 05:18 05:18 WBC 7.0 RBC 4.29 Hgb 12.5 Hct 37 MCV 86 MCH 29 MCHC 34 RDW 16 H Plt Count 127 L MPV 10.0 Neut % (Auto) 92.7 Lymph % (Auto) 4.0 [place] % (Auto) 3.2 Eos % (Auto) 0.0 Baso % (Auto) 0.1 Absolute Neuts (auto) 6.5 Absolute Lymphs (auto) 0.3 L Absolute Monos (auto) 0.2 Absolute Eos (auto) 0.0 Absolute Basos (auto) 0.0 Absolute Nucleated RBC 0.0 Nucleated RBC % 0.1 INR (Anticoag Therapy) Sodium 142 Potassium 3.4 L Chloride 114 H Carbon Dioxide 20 L Anion Gap 8 BUN 53 H Creatinine 1.30 H Est GFR ( Amer) 47.8 Est GFR (Non-Af Amer) 39.5 BUN/Creatinine Ratio 40.8 H Glucose 133 H Lactic Acid 1.7 Calcium 8.7 Total Bilirubin 1.30 H Direct Bilirubin 0.40 H Indirect Bilirubin 0.9 AST 18 ALT 14 Alkaline Phosphatase 62 Total Protein 5.8 L Albumin 2.7 L Globulin 3.1 Albumin/Globulin Ratio 0.9 L 08/27/18 08:30 WBC RBC Hgb Hct MCV MCH MCHC RDW Plt Count MPV Neut % (Auto) Lymph % (Auto) [place] % (Auto) Eos % (Auto) Baso % (Auto) Absolute Neuts (auto) Absolute Lymphs (auto) Absolute Monos (auto) Absolute Eos (auto) Absolute Basos (auto) Absolute Nucleated RBC Nucleated RBC % INR (Anticoag Therapy) 1.56 H Sodium Potassium Chloride Carbon Dioxide Anion Gap BUN Creatinine Est GFR ( Amer) Est GFR (Non-Af Amer) BUN/Creatinine Ratio Glucose Lactic Acid Calcium Total Bilirubin Direct Bilirubin Indirect Bilirubin AST ALT Alkaline Phosphatase Total Protein Albumin Globulin Albumin/Globulin Ratio Microbiology and Other Data: Microbiology 08/25/18 18:04 Urine Urine Culture - Preliminary Escherichia Coli 08/25/18 01:57 Urine Urine Culture - Final Assess/Plan/Problems-Billing Assessment: 78yof PMHx CAD, AF, DM, dementia, OA who presents with lethargy, fevers suspect acute yue and cholangitis - Patient Problems (1) Sepsis Comment: Resolved Sepsis due to infectious process secondary to probable choledocholithiasis with probably cholangitis, and acute cholecystitis. (2) Fever Comment: - Improving - Source: probable choledocholithiasis with probably cholangitis, and acute cholecystitis - Highest recorded 08/25 of 104.4. Low grade fever currently but no fever over 101 > 24 hours. - Cont Zosyn started 08/26 and oral vanco for cdiff - Blood cultures NGTD - 1st UA had negative culture. Repeat UA grew Ecoli in the setting of diarrhea - Chest xray unremarkable (3) Abdominal pain Comment: - CT obtained 08/27 showing GB distention, gallstone. Pt underwent MRCP 08/28 showing probable acute yue and intra and extrahepatic biliary dilitation - with stones visualized in the cystic and common bile duct - GI consult placed- plan for ERCP today by Dr. Purvis - Appreciate surgical consult - Billirubin elevated -> Normal LFTs - Positive Garza's Sign. - Cont Zosyn - DC Eliquis for ERCP (last dose 08/28 @ 0900) (4) Diarrhea Comment: - CDIFF positive ?? colonization - no diarrhea prior to hospitalization. - Started on Oral Vanco 08/27 (5) SHERRY (acute kidney injury) Comment: - Resolved (6) Lethargy Comment: - Suspected secondary to toxic encephalopathy; improving - Prior to hospital she was walking with walker or assist on Tuesday and currently needs justino (7) Urinary tract infection Comment: - 1st UA had negative culture. Repeat UA grew Ecoli in the setting of diarrhea. - Cont Zosyn for now (8) Atrial fibrillation Comment: -Continue Nebivolol - DC Eliquis for ERCP (9) CAD (coronary artery disease) Comment: - asymptomatic -Continue ASA, Lipitor (10) Dementia Comment: - Dementia at baseline (11) Diabetes Comment: -Not on home medications - HbA1C 5.6 (12) DVT prophylaxis Comment: - hold Eliquis - SCDs only Status and Disposition: Inpatient. Unclear discharge plan - will be determined by her hospital course. Very likely she will need subacute rehab
[2018-08-29] MEDS ORDERED: Etomidate* 2 MG/ML 10 ML VIAL ONE (13:10)
[2018-08-29] MEDS ORDERED: Rocuronium* 10 MG/ML VIAL ONE (13:11)
[2018-08-29] MEDS ORDERED: EPINEPHrine SYR 0.1MG/ML* SYRINGE ONE (13:12)
[2018-08-29] MEDS ORDERED: Phenylephrine 10 MG/ML VIAL* 1 ML VIAL ONE (13:13)
--- NOTE | 2018-08-29 14:07 | PN ---
Progress Note - Progress Note Date of Service: 08/29/18 SOAP: Subjective: Patient presently having ERCP performed with Dr. Purvis Patient not seen Discussed care with her Objective: Temp Pulse Resp BP Pulse Ox 97.9 F 76 20 168/101 94 08/29/18 12:50 08/29/18 12:50 08/29/18 12:50 08/29/18 12:50 08/29/18 12:50 Laboratory Results - last 24 hr 08/28/18 08/29/18 08/29/18 04:55 06:39 06:39 WBC 8.6 RBC 4.00 Hgb 11.5 L Hct 35 MCV 86 MCH 29 MCHC 33 RDW 17 H Plt Count 147 L MPV 9.9 Neut % (Auto) 90.6 Lymph % (Auto) 4.4 Ware % (Auto) 4.1 Eos % (Auto) 0.8 Baso % (Auto) 0.1 Absolute Neuts (auto) 7.7 Absolute Lymphs (auto) 0.4 L Absolute Monos (auto) 0.4 Absolute Eos (auto) 0.1 Absolute Basos (auto) 0.0 Absolute Nucleated RBC 0.0 Nucleated RBC % 0.0 Sodium 145 Potassium 3.5 Chloride 115 H Carbon Dioxide 24 Anion Gap 6 BUN 34 H Creatinine 0.90 Est GFR ( Amer) 73.1 Est GFR (Non-Af Amer) 60.4 BUN/Creatinine Ratio 37.8 H Glucose 89 Hemoglobin A1c 5.6 Calcium 9.0 Total Bilirubin 2.00 H AST 22 ALT 16 Alkaline Phosphatase 75 C-Reactive Protein 254.56 H Total Protein 6.0 L Albumin 2.5 L Globulin 3.5 Albumin/Globulin Ratio 0.7 L Assessment: Choledocholithiasis-probable acute cholecystitis ERCP today Plan: Discussed care with today-usual recommended course of care would be cholecystectomy after ERCP and CBD clearance. She has several medical issues including dementia and is certainly high risk for surgical intervention. Plan will be to see how she does with ERCP and have tentatively placed her on OR schedule for tomorrow with Dr. Dela Cruz. Other options include continued antibiotics or percutaneous drainage. will also consider these options. Also discussed with Dr. Purvis Keep NPO after MN tonight. Continue IV abx.
--- NOTE | 2018-08-29 14:21 | CONS ---
GASTROENTEROLOGY CONSULT: DATE OF CONSULT : 08/29/18 REFERRING PHYSICIANS: Karine Wheeler; Suraj Garza, [place], [place].* REASON FOR CONSULTATION: Right upper quadrant pain with MRCP showing common bile duct stones. HISTORY: This 78-year-old woman with a history of dementia, coronary disease, status post bypass at [facility] 3 years ago, atrial fibrillation, on Eliquis, and diet-controlled diabetes, was admitted with decline in mental status 4 days ago. Shortly following admission, she was noted to have abdominal pain and also loose stools. She did not have any vomiting. She had a temperature as high as 104 afternoon 08/25/18. She was started on Zosyn. She developed diarrhea and was C. diff positive, was placed on vancomycin. She has been stable over the next 3 days, still complaining of abdominal pain when palpated. She is demented and does not interact other than to say her name. Her says that she was not having diarrhea at home as an outpatient. She was, however, acting tired and lethargic after some social gatherings earlier last week. Here, she has had no vomiting, decline in her temperature, a normal white count throughout. Her diarrhea has turned somewhat green. She is continuing on Zosyn because of the localized right upper quadrant tenderness. CT scan shows a distended gallbladder with wall thickening. There are multiple stones. There also multiple stones in the common duct and confirmed on MRCP. Extensive conversations have taken place between the hospitalist team, the , Dr. Lazo from Surgery and me regarding what should be done. The patient had been DNR previously, though her 's perspective is that something should be tried as opposed to comfort care. It is his overall perspective that "something should be tried." She takes Eliquis as an outpatient and last dose was the morning of 08/28/18. PAST MEDICAL HISTORY: 1. Adult onset diabetes. 2. Chronic pain - OxyContin used at home in May 2016. She had an admission with an inadvertent overdose. 3. Coronary disease - She had an MO shortly following orthopedic surgery a few years back. 4. Atrial fibrillation - no history of embolic phenomena on Eliquis. MEDICATIONS AT HOME: 1. Eliquis 5 b.i.d. 2. Bystolic 5 b.i.d. 3. Atorvastatin 20 mg. 4. Aspirin 81 mg. 5. Acetaminophen p.r.n. 6. Trazodone, frequency uncertain. SOCIAL HISTORY: Her has some chronic medical issues, but is her caregiver at home. She has previously been able to use a rolling walker. They have help from her son and some caregivers that come in. FAMILY HISTORY: Her father of heart disease. REVIEW OF SYSTEMS: No history of abdominal surgery, overt CVA, seizures, syncope, hepatitis, jaundice, renal stones. Colonoscopy history is unknown. PHYSICAL EXAM: She is a morbidly obese woman in bed, eyes closed, in isolation. Temperature 99.9, pulse 75, blood pressure 152/70. She is somnolent , and her only communication is to open her eyes when requested, and to say "that hurts" when the abdomen is palpated. HEENT exam shows no icterus. Her neck moves easily. Her lungs are clear with limited excursion. Heart sounds are irregular. She has no gross murmur. The abdomen has bowel sounds in all 4 quadrants. She is tender generally without much localization. Rectal deferred. The nurses report loose stool that has been darkening. Extremities show edema at both ankles 2+ with no asymmetry. Neurologic is not possible beyond that. LABS: Today white count 8.6, hemoglobin 11.5, hematocrit 35, MCV 86. BUN 34; creatinine 0.9, down from 53 and 1.68 three days ago. Bilirubin 2.0. ALT 16, alkaline phosphatase 75. IMPRESSION: This 78-year-old woman has cholecystitis that does appear to be responding somewhat to n.p.o. status and antibiotics as her temperature has stayed down as well as her white count and urine output is doing well. It is uncertain whether she will need cholecystostomy or cholecystectomy or alternately whether it might be determined that she could be comfort care. Her dementia does seem to be quite dense. If any definitive interventions are to be done on the gallbladder, there is a case to be made for clearing her common bile duct, which clearly has stones in it. ERCP has been discussed and will be done, although there is uncertainty as to whether in the near to immediate term she can survive multiple interventions without heroic measures. Her 's perspective at this point is that it is too soon to give up and he accepts a very high risk ERCP. Her C. diff is a little bit unusual coming on quite so fast after hospital stay. [id number] #: [id number] MTDD
[2018-08-29] MEDS ORDERED: Acetaminophen TAB* 325 MG PO PRN (14:45)
[2018-08-29] MEDS ORDERED: Ondansetron INJ* 2 MG/ML VIAL IV PRN (14:45)
[2018-08-29] MEDS ORDERED: oxyCODONE TAB* 5 MG TAB PO PRN (14:45)
[2018-08-29] MEDS ORDERED: Naloxone* 0.4 MG/ML 1 ML VIAL IV PRN (14:45)
[2018-08-29] MEDS ORDERED: Neostigmine Methylsulfate* 1 MG/ML 10 ML VIAL (1 mg/ml) ONE ×2 (14:56)
[2018-08-29] MEDS ORDERED: Glycopyrrolate IV* 0.2 MG/ML 1 ML VIAL ONE (14:56)
[2018-08-29] MEDS ORDERED: Buffered Lidocaine 1% SYRIN* 1 ML/SYRINGE INTRADERM ONE (15:10)
[2018-08-29] MEDS ORDERED: Sugammadex * 200 MG/2 ML VIAL IV PUSH ONE (15:32)
[2018-08-29] MEDS: Lactated Ringers 1000 ML Bag* 1,000 ML IV SCH (16:51)
[2018-08-30] MEDS: ZOSYN 3.375 GM Q6H IVPB SCH ×8 (00:50→18:04)
--- NOTE | 2018-08-30 03:26 | PRO ---
DATE: 08/29/18 - ROOM #338 REFERRING PHYSICIAN: [place]ail [place], [place] * PROCEDURE: ERCP with sphincterotomy and balloon extraction, common bile duct stones. INDICATION: This 78-year-old woman admitted with mental status changes, began complaining of abdominal pain. She was found to have common bile duct stones on CT and MRCP. Fever has abated with antibiotics. It was decided that attempts to clear her biliary tree would be done. ENDOSCOPIST: Dr. Purvis. FINDINGS: She is a morbidly obese woman with a severely depressed mental status , just answering to name. She has a recent diagnosis of Clostridium difficile and staff maintained gowning and gloves switching during various phases of the procedure. She was brought to the operating room. She was rolled to the semi- prone position, elevating the right shoulder slightly. A standard bite block would not fit and a pediatric bite block was used. The side viewing scope had to be passed on the outer area of the bite block. Passage through the oropharynx was restricted, but accomplished. ERCP: Esophagus - 20% views were normal. Stomach - 50% views were normal with a large amount of bilious material. Duodenum - normal contours and mucosa. No diverticula were seen. Papilla - prominent and on the end of a long intramural segment. A sphincterotome was inclined in the access of the intramural duct and a wire brought down to the end. It was used to gently probe the papilla and advancement was done with a good trajectory confirmed by fluoro and then the guidewire went freely up into the liver. Dye injection demonstrated common duct stones and a lot of debris. A good deep free wire cannulation was locked in place with a short arm system. The sphincterotome was brought down and sphincterotomy performed in small 1 to 2 mm segments. Bile and granular debris was coming through. An exchange was made for the balloon catheter. Passing the balloon catheter up to the level of the estimated cystic duct and bringing sweeps down. Six stones were brought through, 3 large, 3 small and appearing black. They did no fracture. Copious debris came through. It was not obviously purulent. A balloon occlusion cholangiogram showed no persisting filling defect. Dye drained almost spontaneously. The procedure was terminated. IMPRESSION: 1. Oral restriction - pediatric bite block only. 2. Normal duodenal anatomy. 3. Status post endoscopic sphincterotomy. 4. Common bile duct stones - extracted and drainage appears free. [id number] #: [id number] MTDD
[2018-08-30] MEDS ORDERED: Lactated Ringers 1000 ML Bag* 1,000 ML IV SCH (06:00)
[2018-08-30 06:08] LABS: Hematocrit 33 % (35-47); Mean Corpuscular HGB Conc 33 g/dL (31-36); Mean Corpuscular Hemoglobin 29 pg (27-31); Mean Corpuscular Volume 86 fL (80-97); Mean Platelet Volume 9.8 fL (7.4-10.4); Platelet Count 171 10^3/uL (150-450); Red Blood Count 3.87 10^6 /uL (3.70-4.87); Red Cell Distribution Width 16 % (10.5-15); White Blood Count 8.7 10^3/uL (3.5-10.8)
[2018-08-30 06:39] LABS: BUN/Creatinine Ratio 37.4 (8-20); Calcium 8.7 mg/dL (8.6-10.3); EGFR African American 72.2 (>60); EGFR Non-African American 59.6 (>60); Potassium 3.3 mmol/L (3.5-5.0)
[2018-08-30 07:30] LABS: ABS Eosinophils 0.2 10^3/ul (0-0.6); ABS Lymphocytes 0.7 10^3/ul (1.0-4.8); ABS Monocytes 0.5 10^3/ul (0-0.8); ABS Neutrophils 7.3 10^3/ul (1.5-7.7); Eosinophil % 2.7 %; Lymphocyte % 7.6 %
[2018-08-30 08:07] LABS: Albumin 2.3 g/dL (3.2-5.2); Albumin/Globulin Ratio 0.7 (1-3); Globulin 3.2 g/dL (2-4); Indirect Bilirubin 1.3 mg/dL (0.3-1.0); Total Bilirubin 2.1 mg/dL (0.2-1.0); Total Protein 5.5 g/dL (6.4-8.9)
[2018-08-30] MEDS: CMC:Nebivolol TAB (NF) 2.5 MG TAB PO SCH (08:21)
[2018-08-30] MEDS: Vancomycin CAP* 125 MG CAP PO SCH ×4 (08:21→22:15)
[2018-08-30] MEDS: Lactobacillus Acidophilus* 1 TAB PO SCH (08:21)
[2018-08-30] MEDS ORDERED: Famotidine IV* 10 MG/ML 2 ML (20 mg) IV ONE (09:00)
[2018-08-30] MEDS ORDERED: Propofol* 10 MG/ML 20 ML BTL ONE (09:36)
[2018-08-30] MEDS ORDERED: Succinylcholine* 20 MG/ML 10 ML VIAL ONE (09:36)
[2018-08-30] MEDS ORDERED: Rocuronium* 10 MG/ML VIAL ONE (09:36)
[2018-08-30] MEDS ORDERED: fentaNYL* 50 MCG/ML 2 ML VIAL (100 MCG VIAL) ONE ×3 (09:36→13:20)
[2018-08-30] MEDS ORDERED: Lidocaine 2% PF * 5 ML VIAL ONE (09:36)
[2018-08-30] MEDS ORDERED: Neostigmine Methylsulfate* 1 MG/ML 10 ML VIAL (1 mg/ml) ONE ×2 (09:49→12:34)
[2018-08-30] MEDS ORDERED: Ondansetron INJ* 2 MG/ML VIAL ONE (09:51)
--- NOTE | 2018-08-30 10:27 | PN ---
Progress Note - Progress Note Date of Service: 08/30/18 SOAP: Subjective: Pt seen and examined. Chart reviewed. Radiographic cholecystitis, and CBD stones removed on ERCP yesterday. Continued pain. no appetite. I spoke to pt's and son- pt has dementia at baseline; family will rescind DNR for OR, but pt doesn't want additional treatment if neurologic issues worsen. Objective: Intake & Output 08/29/18 08/30/18 08/30/18 22:59 06:59 14:59 Intake Total 835 0 135 Output Total 1 Balance 834 0 135 abdo: soft/ obese/ tender at RUQ labs noted Assessment: CBD stones- resolved, cholecystitis Plan: abx laparoscopic cholecystectomy-- R/B/A discussed and family wishes to proceed.
[2018-08-30] MEDS ORDERED: Bupivacaine 0.25% EPI 200,000* 30 ML SDV ONE (10:36)
[2018-08-30] MEDS ORDERED: oxyCODONE/Acetamin 5/325 MG* TAB PO PRN (10:45)
[2018-08-30] MEDS ORDERED: HYDROcodone/ACETAMIN 5-325 MG* 1 TAB PO PRN (10:45)
[2018-08-30] MEDS ORDERED: fentaNYL* 50 MCG/ML 2 ML VIAL (100 MCG VIAL) IV PRN (10:45)
[2018-08-30] MEDS ORDERED: DiMENhydriNATE IV* 50 MG/ML VIAL IV PUSH PRN (10:45)
[2018-08-30] MEDS ORDERED: Naloxone* 0.4 MG/ML 1 ML VIAL IV PRN (10:45)
[2018-08-30] MEDS ORDERED: Phenylephrine 40 MCG/ML SYRINGE ONE (11:39)
[2018-08-30] MEDS ORDERED: Glycopyrrolate IV* 0.2 MG/ML 1 ML VIAL ONE (12:34)
[2018-08-30] MEDS ORDERED: Sugammadex * 200 MG/2 ML VIAL IV PUSH ONE (12:50)
--- NOTE | 2018-08-30 12:52 | OP ---
Operative Report - Blank - Operative Report Date of Operation: 08/30/18 Note: Brief Operative Note Preop Dx: Acute cholecystitis; choledocholithiasis Postop Dx: same, plus perforated gangrenous Procedure: laparoscopic cholecystectomy Anesthesia: GET Surgeon: Lanie Web Database Developer: BUBBA Collins Fluids: 2200 ml RL EBL: 70 ml Specimen: gallbladder Drains: one ANDREW drain Findings: dictated
[2018-08-30] MEDS ORDERED: Zosyn per Pharmacy* NOTE FOLLOW UP PRN (14:42)
[2018-08-30] MEDS ORDERED: Morphine 4 MG/ML VIAL (1 ml) 4 MG/ML VIAL IV PRN ×2 (14:59→15:00)
[2018-08-30] MEDS ORDERED: Ondansetron INJ* 2 MG/ML VIAL IV PRN (15:01)
[2018-08-30] MEDS: HYDROcodone/ACETAMIN 5-325 MG* 1 TAB PO PRN ×2 (15:24→22:15)
--- NOTE | 2018-08-30 16:08 | PN ---
Subjective Date of Service: 08/30/18 Interval History: Patient more awake today after surgery than she has been in days. Discussed with surgeon Dr. Dela Cruz - adolfo surgery was successful without complications - GB found to have a perforation and gangrene. Patient is doing well after surgery. Family at bedside who states she is more awake and verbal today. Pt denies pain. Confused at baseline Objective Active Medications: Acetaminophen (Tylenol Tab*) 650 mg PO Q4H PRN PRN Reason: FEVER/PAIN Last Admin: 08/27/18 19:43 Dose: 650 mg Acetaminophen (Tylenol Supp*) 650 mg NC Q6H PRN PRN Reason: PAIN or FEVER Hydrocodone Bitart/Acetaminophen ([place] 5-325 Tab*) 1 tab PO Q4H PRN PRN Reason: PAIN - MODERATE Last Admin: 08/30/18 15:24 Dose: 1 tab Piperacillin Sod/Tazobactam (Sod 3.375 gm/ Sodium Chloride) 100 mls @ 200 mls/ hr IVPB Q6H [facility] Last Admin: 08/30/18 13:20 Dose: 200 mls/hr Potassium Chloride/Dextrose (D5w 1/2 Ns Kcl 20 Meq 1000 Ml*) 1,000 mls @ 125 mls/hr IV .PER RATE [facility] Lactobacillus Rhamnosus (Lactobacillus Acidophilus*) 1 tab PO DAILY [facility] Last Admin: 08/30/18 08:21 Dose: Not Given Morphine Sulfate (Morphine 4 Mg/Ml Vial (1 Ml)) 2 mg IV Q2H PRN PRN Reason: PAIN - MODERATE Morphine Sulfate (Morphine 4 Mg/Ml Vial (1 Ml)) 4 mg IV Q2H PRN PRN Reason: PAIN - SEVERE Nebivolol (Bystolic Tab (Nf)) 5 mg PO DAILY@0900 [facility] Last Admin: 08/30/18 08:21 Dose: 5 mg Ondansetron HCl (Zofran Inj*) 4 mg IV Q6H PRN PRN Reason: NAUSEA Pharmacy Consult (Zosyn Per Pharmacy*) 1 note FOLLOW UP .ZOSYN PER PHARMACY [facility] Vancomycin HCl (Vancomycin Cap*) 125 mg PO QID [facility] Last Admin: 08/30/18 15:00 Dose: 125 mg Vital Signs - 8 hr 08/30/18 08/30/18 08/30/18 08:20 13:10 13:11 Temperature 97.7 F Pulse Rate 70 Respiratory 20 24 16 Rate Blood Pressure 151/73 (mmHg) O2 Sat by Pulse 94 Oximetry 08/30/18 08/30/18 08/30/18 13:16 13:20 13:21 Temperature Pulse Rate 72 67 73 Respiratory 12 4 18 Rate Blood Pressure 171/67 158/78 (mmHg) O2 Sat by Pulse 95 96 95 Oximetry 08/30/18 08/30/18 08/30/18 13:31 13:36 13:41 Temperature Pulse Rate 75 73 72 Respiratory 29 24 24 Rate Blood Pressure 158/124 151/72 147/68 (mmHg) O2 Sat by Pulse 94 96 93 Oximetry 08/30/18 08/30/18 08/30/18 13:46 14:00 15:24 Temperature Pulse Rate 72 76 Respiratory 27 24 20 Rate Blood Pressure 157/76 158/78 (mmHg) O2 Sat by Pulse 95 95 Oximetry Oxygen Devices in Use Now: Nasal Cannula Appearance: elderly female laying in bed A+O, confused Eyes: No Scleral Icterus, PERRLA Ears/Nose/Mouth/Throat: NL Teeth, Lips, Gums, Mucous Membranes Moist Neck: NL Appearance and Movements; NL JVP Respiratory: Symmetrical Chest Expansion and Respiratory Effort, Clear to Auscultation Cardiovascular: NL Sounds; No Murmurs; No JVD, RRR, No Edema Abdominal: - - obese - ANDREW drain draining serosangenous fluid. Skin: No Rash or Ulcers, No Nodules or Sclerosis Neurological: - - alert Lines/Tubes/Other Access: Clean, Dry and Intact Peripheral IV Nutrition: Taking PO's Result Diagrams: 08/30/18 05:37 08/30/18 05:37 Additional Lab and Data: Laboratory Results - last 24 hr 08/26/18 08/27/18 08/27/18 20:42 05:18 05:18 WBC 7.0 RBC 4.29 Hgb 12.5 Hct 37 MCV 86 MCH 29 MCHC 34 RDW 16 H Plt Count 127 L MPV 10.0 Neut % (Auto) 92.7 Lymph % (Auto) 4.0 Worth % (Auto) 3.2 Eos % (Auto) 0.0 Baso % (Auto) 0.1 Absolute Neuts (auto) 6.5 Absolute Lymphs (auto) 0.3 L Absolute Monos (auto) 0.2 Absolute Eos (auto) 0.0 Absolute Basos (auto) 0.0 Absolute Nucleated RBC 0.0 Nucleated RBC % 0.1 INR (Anticoag Therapy) Sodium 142 Potassium 3.4 L Chloride 114 H Carbon Dioxide 20 L Anion Gap 8 BUN 53 H Creatinine 1.30 H Est GFR ( Amer) 47.8 Est GFR (Non-Af Amer) 39.5 BUN/Creatinine Ratio 40.8 H Glucose 133 H Lactic Acid 1.7 Calcium 8.7 Total Bilirubin 1.30 H Direct Bilirubin 0.40 H Indirect Bilirubin 0.9 AST 18 ALT 14 Alkaline Phosphatase 62 Total Protein 5.8 L Albumin 2.7 L Globulin 3.1 Albumin/Globulin Ratio 0.9 L 08/27/18 08:30 WBC RBC Hgb Hct MCV MCH MCHC RDW Plt Count MPV Neut % (Auto) Lymph % (Auto) Worth % (Auto) Eos % (Auto) Baso % (Auto) Absolute Neuts (auto) Absolute Lymphs (auto) Absolute Monos (auto) Absolute Eos (auto) Absolute Basos (auto) Absolute Nucleated RBC Nucleated RBC % INR (Anticoag Therapy) 1.56 H Sodium Potassium Chloride Carbon Dioxide Anion Gap BUN Creatinine Est GFR ( Amer) Est GFR (Non-Af Amer) BUN/Creatinine Ratio Glucose Lactic Acid Calcium Total Bilirubin Direct Bilirubin Indirect Bilirubin AST ALT Alkaline Phosphatase Total Protein Albumin Globulin Albumin/Globulin Ratio Microbiology and Other Data: Microbiology 08/25/18 18:04 Urine Urine Culture - Preliminary Escherichia Coli 08/25/18 01:57 Urine Urine Culture - Final Assess/Plan/Problems-Billing Assessment: 78yof PMHx CAD, AF, DM, dementia, OA who presents with lethargy, fevers suspect acute yue and cholangitis - Patient Problems (1) S/P cholecystectomy Comment: - OR today with Dr. Dela Cruz; GB was perforated and gangrene; ANDREW drain - doing well post-op. - Appreciate GI consult- ERCP by Dr. Purvis 08/29 - Surgery following - Cont Zosyn - Hold Eliquis (last dose 08/28 @ 0900) (2) Sepsis Comment: Resolved Sepsis due to infectious process secondary to probable choledocholithiasis with probably cholangitis, and acute cholecystitis. (3) Fever Comment: - Resolved - Source: probable choledocholithiasis with probably cholangitis, and acute cholecystitis - Highest recorded 08/25 of 104.4. - Cont Zosyn started 08/26 and oral vanco for cdiff - Blood cultures NGTD - 1st UA had negative culture. Repeat UA grew Ecoli in the setting of diarrhea - Chest xray unremarkable (4) Diarrhea Comment: - CDIFF positive ?? colonization - no diarrhea prior to hospitalization. - Started on Oral Vanco 08/27 (5) SHERRY (acute kidney injury) Comment: - Resolved (6) Lethargy Comment: - Suspected secondary to toxic encephalopathy; improving - Prior to hospital she was walking with walker or assist on Tuesday and currently needs justino (7) Urinary tract infection Comment: - 1st UA had negative culture. Repeat UA grew Ecoli in the setting of diarrhea. - Cont Zosyn for now (8) Atrial fibrillation Comment: - Continue Nebivolol - Home Eliquis (9) CAD (coronary artery disease) Comment: - asymptomatic -Continue ASA, Lipitor (10) Dementia Comment: - Dementia at baseline (11) Diabetes Comment: -Not on home medications - HbA1C 5.6 (12) DVT prophylaxis Comment: - hold Eliquis - SCDs only Status and Disposition: Inpatient. Unclear discharge plan - will be determined by her hospital course. Very likely she will need subacute rehab
[2018-08-30] MEDS ORDERED: Vancomycin CAP* 125 MG CAP PO SCH (17:00)
--- NOTE | 2018-08-30 17:18 | OP ---
CC: Primary Care Doctor; [facility] OPERATIVE REPORT: DATE OF OPERATION: DATE OF : 38 SURGEON: Shaka Dela Cruz MD SALESPERSON ART OBJECTS: BUBBA Staples ANESTHESIOLOGIST: Dr. Fajardo. ANESTHESIA: General anesthesia. PRE-OP DIAGNOSES: 1. Acute cholecystitis. 2. Choledocholithiasis. POST-OP DIAGNOSES: 1. Gangrenous cholecystitis. 2. Choledocholithiasis. OPERATIVE PROCEDURE: Laparoscopic partial cholecystectomy. ESTIMATED BLOOD LOSS: 70 cc. FLUIDS: 2200 cc of fluids. SPECIMEN: Gallbladder. DRAINS: A #10 ANDREW drain. DESCRIPTION OF PROCEDURE: The patient was identified in the preoperative area. I discussed her case with her family. She only followed simple commands and my discussion was directed towards the son a nd the . I had reviewed the case and discussed it with my partners and did agree with the neda n of laparoscopic cholecystectomy. I outlined the details to the family, discussing the possibility of a partial cholecystectomy with drainage if need be. They understood. After discussing these risk s, benefits, and alternatives including percutaneous cholecystostomy and consent was signed. The pat ient was marked. The OR team saw the patient, brought her back to the OR and placed her on the opera ting table in supine position. The patient had already been on antibiotics. Sequential devices were placed on bilateral lower extremities and general anesthesia was induced. The patient's abdomen was prepped and draped in standard surgical fashion and a time- out was performed. A right upper quadrant incision was made at the midclavicular line 2 fingerbreadths below the costal margin. This was deepened down to the anterior fascia, which was elevated and the Veress needle was inserted into the abdominal cavity, which was then allowed to insufflate to a pressure of 15 mmHg. N ext, a 12-mm trocar was placed in an Optiview fashion in the periumbilical incision site. Laparoscop e was inserted through this and review of the abdomen showed a gangrenous appearing gallbladder with omental attachments that were bile stained. Next, the Veress needle was intact and removed and a 5-m m port inserted at this site. We then were able to bluntly dissect some of the omental attachments t o the anterior abdominal wall and to the liver, freeing this up to expose more of the gallbladder and at this point, we entered into bile that was suctioned off and appeared to be contained within porti on of omentum attached to the gallbladder consistent with a perforated gallbladder. Once this dissec tion was carried out, we can see the xiphoid area. A 5-mm trocar was inserted at this site. This la ter was upsized to a 12 and a 5-mm was then placed in the right lateral site. Table was repositioned. The fundus of the gallbladder was grasped. This was gangrenous and we were able to elevate the gallbladder anteriorly. When we freed up the omentum off the anterior aspect of the gallbladder, a hole was identified and we were able to place our suction there and remove signifi cant amount of bile. This was not purulent appearing and this allowed us to see the infundibular veronica on of the gallbladder better. Blunt and sharp dissection was carried out to expose the cystic duct, which was isolated. No cystic artery was fully appreciated. The cystic duct was doubly clipped and then ligated and the gallbladde r was removed. I did not wish to remove this from the liver bed. The liver showed changes consisten t with cirrhosis and for this reason, I came through the gallbladder and left the posterior wall on t he liver bed. The gallbladder was then placed in an endoscopic retrieval bag and brought out through the subxiphoid port site. The remaining mucosa was then cauterized throughout most of it. I did debride some additional gallbl adder wall that appeared fully necrotic, but tried to stay clear from pulling this off of the liver. We then copiously irrigated and reviewed the cystic duct stump, which showed clips in place. We did have to place a clip at the lateral aspect of the gallbladder edge for what was likely a lateral bra nch of the artery. Hemostasis was achieved and next, a #10 ANDREW drain was brought in and placed at the Morison pouch. The table was repositioned and the abdomen was allowed to collapse. The ANDREW drain wa s brought out through the lateral most port and sutured to the skin with 3-0 Prolene and all addition al skin incisions were reapproximated with skin indy followed by Steri-Strips and sterile dressing . The patient tolerated the procedure well and was woken up in the OR and transferred to the PACU in stable condition. [id number]/[facility] #: [id number]
[2018-08-30] MEDS: Nystatin TOP POWDER* 15 GM BTL TOPICAL SCH (22:16)
[2018-08-30] MEDS: D5W 1/2 NS KCl 20 Meq 1000 ML* 1,000 ML IV SCH (23:40)
[2018-08-31] MEDS: ZOSYN 3.375 GM Q6H IVPB SCH ×4 (00:34→06:06)
[2018-08-31 07:19] LABS: ABS Eosinophils 0.2 10^3/ul (0-0.6); ABS Lymphocytes 0.8 10^3/ul (1.0-4.8); ABS Monocytes 0.7 10^3/ul (0-0.8); Eosinophil % 1.8 %; Hematocrit 35 % (35-47); Hemoglobin 10.9 g/dL (12.0-16.0); Lymphocyte % 5.9 %; Mean Corpuscular HGB Conc 32 g/dL (31-36); Mean Corpuscular Hemoglobin 28 pg (27-31); Mean Corpuscular Volume 88 fL (80-97); Mean Platelet Volume 9.9 fL (7.4-10.4); Platelet Count 240 10^3/uL (150-450); Red Blood Count 3.91 10^6 /uL (3.70-4.87); Red Cell Distribution Width 17 % (10.5-15); White Blood Count 12.6 10^3/uL (3.5-10.8)
[2018-08-31 07:41] LABS: Albumin 2.2 g/dL (3.2-5.2); Albumin/Globulin Ratio 0.7 (1-3); BUN/Creatinine Ratio 28.7 (8-20); Calcium 8.4 mg/dL (8.6-10.3); EGFR African American 59.2 (>60); EGFR Non-African American 48.9 (>60); Globulin 3.3 g/dL (2-4); Potassium 3.8 mmol/L (3.5-5.0); Total Bilirubin 1.6 mg/dL (0.2-1.0); Total Protein 5.5 g/dL (6.4-8.9)
[2018-08-31] MEDS: D5W 1/2 NS KCl 20 Meq 1000 ML* 1,000 ML IV SCH ×2 (08:47→19:46)
[2018-08-31] MEDS: Vancomycin CAP* 125 MG CAP PO SCH ×4 (08:53→20:50)
[2018-08-31] MEDS: Nystatin TOP POWDER* 15 GM BTL TOPICAL SCH ×2 (08:53→21:47)
[2018-08-31] MEDS: Lactobacillus Acidophilus* 1 TAB PO SCH (08:53)
[2018-08-31] MEDS: CMC:Nebivolol TAB (NF) 2.5 MG TAB PO SCH (08:53)
[2018-08-31] MEDS ORDERED: Lactobacillus Acidophilus* 1 TAB PO SCH (09:00)
[2018-08-31] MEDS ORDERED: CMC:Nebivolol TAB (NF) 2.5 MG TAB PO SCH (09:00)
--- NOTE | 2018-08-31 11:15 | PN ---
Progress Note - Progress Note Date of Service: 08/31/18 SOAP: Subjective: Pt seen and examined. Pt responds minimally Objective: Temp Pulse Resp BP Pulse Ox 99.0 F 70 18 123/56 94 08/31/18 04:24 08/31/18 07:56 08/31/18 08:07 08/31/18 07:56 08/31/18 07:56 abdo: soft/ obese/ less tender ANDREW serous Assessment: POD 1 lap yue, no leak C diff, deconditioned, dementia Plan: abx- may convert to oral for 1 more week regarding treatment for perforated GB ANDREW to be removed prior to discharge will follow discharge plan per Hosp
[2018-08-31] MEDS: [UNRECOGNIZED DRUG - OTHER] IVPB SCH ×4 (13:16→20:51)
[2018-08-31] MEDS: ZOSYN 3.375 GM IVPB SCH ×4 (13:16→20:51)
--- NOTE | 2018-08-31 13:29 | PN ---
Subjective Date of Service: 08/31/18 Interval History: Patient is lethargic today, but is able to open eyes and answer questions. Patient denies pain, but has a history of denying pain while having strong stimuli for pain. Patient denies F/C, CP, SOB, N/V, abdominal pain, dysuria, dizziness, or other pain. Patient is not passing gas or having stools. Patient' s family states she is doing much better than prior to the surgery. Family History: Unchanged from Admission Social History: Unchanged from Admission Past Medical History: Unchanged from Admission Objective Active Medications: Acetaminophen (Tylenol Tab*) 650 mg PO Q4H PRN PRN Reason: FEVER/PAIN Last Admin: 08/27/18 19:43 Dose: 650 mg Acetaminophen (Tylenol Supp*) 650 mg [place] Q6H PRN PRN Reason: PAIN or FEVER Hydrocodone Bitart/Acetaminophen ([place] 5-325 Tab*) 1 tab PO Q4H PRN PRN Reason: PAIN - MODERATE Last Admin: 08/30/18 22:15 Dose: 1 tab Piperacillin Sod/Tazobactam (Sod 3.375 gm/ Sodium Chloride) 100 mls @ 25 mls/ hr IVPB Q8H [facility] Last Admin: 08/31/18 13:16 Dose: 25 mls/hr Potassium Chloride/Dextrose (D5w 1/2 Ns Kcl 20 Meq 1000 Ml*) 1,000 mls @ 75 mls /hr IV .PER RATE [facility] Lactobacillus Rhamnosus (Lactobacillus Acidophilus*) 1 tab PO DAILY [facility] Last Admin: 08/31/18 08:53 Dose: 1 tab Morphine Sulfate (Morphine 4 Mg/Ml Vial (1 Ml)) 2 mg IV Q2H PRN PRN Reason: PAIN - MODERATE Morphine Sulfate (Morphine 4 Mg/Ml Vial (1 Ml)) 4 mg IV Q2H PRN PRN Reason: PAIN - SEVERE Nebivolol (Bystolic Tab (Nf)) 5 mg PO DAILY@0900 [facility] Last Admin: 08/31/18 08:53 Dose: 5 mg Nystatin (Nystatin Top Powder*) 1 applic TOPICAL BID [facility] Last Admin: 08/31/18 08:53 Dose: 1 applic Ondansetron HCl (Zofran Inj*) 4 mg IV Q6H PRN PRN Reason: NAUSEA Pharmacy Consult (Zosyn Per Pharmacy*) 1 note FOLLOW UP .ZOSYN PER PHARMACY [facility] Vancomycin HCl (Vancomycin Cap*) 125 mg PO QID [facility] Last Admin: 08/31/18 08:53 Dose: 125 mg Vital Signs - 8 hr 08/31/18 08/31/18 08/31/18 05:30 05:37 07:56 Temperature Pulse Rate 70 Respiratory 14 Rate Blood Pressure 123/56 (mmHg) O2 Sat by Pulse 95 95 94 Oximetry 08/31/18 08/31/18 08:07 11:48 Temperature 97.4 F Pulse Rate 88 Respiratory 18 16 Rate Blood Pressure 124/60 (mmHg) O2 Sat by Pulse 97 Oximetry Oxygen Devices in Use Now: Nasal Cannula Appearance: Patient is a 78yo female who appears stated age and is sitting in the bed in NAD. Eyes: No Scleral Icterus, PERRLA Ears/Nose/Mouth/Throat: NL Teeth, Lips, Gums, Clear Oropharnyx, Mucous Membranes Moist Neck: NL Appearance and Movements; NL JVP, Trachea Midline Respiratory: Symmetrical Chest Expansion and Respiratory Effort, Clear to Auscultation Cardiovascular: NL Sounds; No Murmurs; No JVD, RRR, No Edema Abdominal: No Hepatosplenomegaly, - - ANDREW drain in place, hypoactive bowel sounds. Surgical incisions without discharge. Lymphatic: No Cervical Adenopathy Extremities: No Clubbing, Cyanosis, - - 1+ RLE edema. Skin: No Nodules or Sclerosis Neurological: NL Sensation, NL Muscle Strength and Tone Result Diagrams: 08/31/18 06:59 08/31/18 06:59 Additional Lab and Data: Laboratory Results - last 24 hr Microbiology and Other Data: Microbiology 08/25/18 18:04 Urine Urine Culture - Preliminary Escherichia Coli 08/25/18 01:57 Urine Urine Culture - Final Assess/Plan/Problems-Billing Assessment: 78yof PMHx CAD, AF, DM, dementia, OA who presents with lethargy and fevers who was found to have a gangrenous gallbladder during cholecystectomy who is now improving well. Patient also had diarrhea and possible C. diff. - Patient Problems (1) S/P cholecystectomy Current Visit: Yes Status: Acute Code(s): Z90.49 - ACQUIRED ABSENCE OF OTHER SPECIFIED PARTS OF DIGESTIVE TRACT SNOMED Code(s): 537735260 Comment: - POD # GB was perforated and gangrene; ANDREW drain - doing well post-op. - Appreciate GI consult- ERCP by Dr. Purvis 08/29 - Surgery following - Cont Zosyn, may convert to oral medications at D/C - Hold Eliquis (last dose 08/28 @ 0900), resume in next couple days. (2) SHERRY (acute kidney injury) Current Visit: Yes Status: Acute Code(s): N17.9 - ACUTE KIDNEY FAILURE, UNSPECIFIED SNOMED Code(s): 15862595 Comment: - Resolved (3) Diarrhea Current Visit: Yes Status: Acute Code(s): R19.7 - DIARRHEA, UNSPECIFIED SNOMED Code(s): 81538409 Comment: - CDIFF positive ?? colonization - no diarrhea prior to hospitalization. - Started on Oral Vanco 08/27, treat in accordance with first episode due to ? increased pathogenicity strain and concurrent antibiotics. (4) Fever Current Visit: Yes Status: Acute Code(s): R50.9 - FEVER, UNSPECIFIED SNOMED Code(s): 839104756 Comment: - Resolved - Source: probable choledocholithiasis with probably cholangitis, and acute cholecystitis - Highest recorded 08/25 of 104.4. - Cont Zosyn started 08/26 and oral vanco for cdiff - Blood cultures NGTD - 1st UA had negative culture. Repeat UA grew Ecoli in the setting of diarrhea - Chest xray unremarkable (5) Lethargy Current Visit: Yes Status: Acute Code(s): R53.83 - OTHER FATIGUE SNOMED Code(s): 005988932 Comment: - Suspected secondary to toxic encephalopathy; improving - Prior to hospital she was walking with walker or assist on Tuesday and currently needs justino - Will need SANTOS (6) Urinary tract infection Current Visit: Yes Status: Acute Comment: - 1st UA had negative culture. Repeat UA grew Ecoli in the setting of diarrhea. - Adequately treated with zosyn. (7) CAD (coronary artery disease) Current Visit: Yes Status: Chronic Code(s): I25.10 - ATHSCL HEART DISEASE OF [place] CORONARY ARTERY W/O ANG PCTRS SNOMED Code(s): 54861964 Comment: - asymptomatic -Continue ASA, Lipitor (8) Dementia Current Visit: Yes Status: Chronic Code(s): F03.90 - UNSPECIFIED DEMENTIA WITHOUT BEHAVIORAL DISTURBANCE SNOMED Code(s): 07240926 Comment: - Dementia at baseline (9) DVT prophylaxis Current Visit: Yes Status: Chronic Code(s): VGB2446 - SNOMED Code(s): 585598463 Comment: - hold Eliquis - SCDs only Status and Disposition: Inpatient. Will need SANTOS at D/C.
[2018-08-31] MEDS: HYDROcodone/ACETAMIN 5-325 MG* 1 TAB PO PRN (21:02)
--- NOTE | 2018-09-01 00:36 | PN ---
Progress Note - Progress Note Date of Service: 09/01/18 Note: Concerned with fever and tachypnea. On my encounter - patient RR: 18, Lungs clear but diminished over right lung. no increase in wob. Patient sleeping. CXR - ?infiltrate on right. Discussed no change in management. ALready on zosyn and PO vanc. Recommended contact precautions. Will obtain Bld Cx if she becomes febrile.
[2018-09-01] MEDS: ZOSYN 3.375 GM IVPB SCH ×4 (04:58→12:33)
[2018-09-01] MEDS: [UNRECOGNIZED DRUG - OTHER] IVPB SCH ×4 (04:58→12:33)
[2018-09-01] MEDS: HYDROcodone/ACETAMIN 5-325 MG* 1 TAB PO PRN ×2 (04:58→15:13)
[2018-09-01 07:16] LABS: Albumin 2.1 g/dL (3.2-5.2); Calcium 8.1 mg/dL (8.6-10.3); Magnesium 1.8 mg/dL (1.9-2.7); Potassium 3.7 mmol/L (3.5-5.0); Total Bilirubin 0.9 mg/dL (0.2-1.0)
[2018-09-01 07:21] LABS: Albumin/Globulin Ratio 0.7 (1-3); BUN/Creatinine Ratio 23.9 (8-20); EGFR Non-African American 44.6 (>60); Total Protein 5.1 g/dL (6.4-8.9)
[2018-09-01 07:39] LABS: ABS Eosinophils 0.4 10^3/ul (0-0.6); ABS Monocytes 0.6 10^3/ul (0-0.8); Eosinophil % 2.8 %; Hematocrit 31 % (35-47); Hemoglobin 9.8 g/dL (12.0-16.0); Lymphocyte % 6.5 %; Mean Corpuscular HGB Conc 31 g/dL (31-36); Mean Corpuscular Hemoglobin 28 pg (27-31); Mean Corpuscular Volume 91 fL (80-97); Nucleated Red Blood Cells % 0.1; Red Blood Count 3.45 10^6 /uL (3.70-4.87); Red Cell Distribution Width 18 % (10.5-15)
[2018-09-01] MEDS: Lactobacillus Acidophilus* 1 TAB PO SCH (09:13)
[2018-09-01] MEDS: CMC:Nebivolol TAB (NF) 2.5 MG TAB PO SCH (09:13)
[2018-09-01] MEDS: Vancomycin CAP* 125 MG CAP PO SCH ×3 (09:14→18:04)
[2018-09-01] MEDS: Nystatin TOP POWDER* 15 GM BTL TOPICAL SCH ×2 (09:14→23:40)
[2018-09-01] MEDS: D5W 1/2 NS KCl 20 Meq 1000 ML* 1,000 ML IV SCH (09:40)
[2018-09-01] MEDS ORDERED: Magnesium Sulfate 2 GM IV* 2 GM/50 ML BAG IVPB ONE (10:08)
[2018-09-01 12:12] LABS: C Reactive Protein 142.05 mg/L (<8.01)
[2018-09-01] MEDS ORDERED: D5W 1/2 NS KCl 20 Meq 1000 ML* 1,000 ML IV SCH (13:27)
[2018-09-01] MEDS ORDERED: Furosemide IV* 10 MG/ML 2 ML VIAL (20 MG) IV SLOW PU ONE (13:30)
--- NOTE | 2018-09-01 13:41 | PN ---
Progress Note - Progress Note Date of Service: 09/01/18 SOAP: Subjective: Pt seen and examined today. Patient's at bedside. According to patient 's , patient still doesn't say much. She does complain of some pain. Her intake is minimal. Objective: Temp Pulse Resp BP Pulse Ox 1 F 66 20 129/45 98 09/01/18 11:43 09/01/18 11:43 09/01/18 11:43 09/01/18 11:43 09/01/18 11:43 Intake & Output 08/31/18 09/01/18 09/01/18 22:59 06:59 14:59 Intake Total 576 0 Output Total 40 20 Balance 536 -20 Follow simple commands. Abdomen: Soft, nondistended, tender in the upper abdomen. No rebound. Skin indy intact. No erythema. ANDREW drainage serous. Labs noted. White blood cell count up. LFTs improving. Assessment: Postoperative day two laparoscopic Subtotal cholecystectomy, being ruled out for C. difficile. Currently on antibiotics. Plan: Remove ANDREW drainage before discharge Continue antibiotics Follow up at [facility] for staple removal. [facility] to cover August until 09/05
[2018-09-01] MEDS ORDERED: Vancomycin per Pharmacy* NOTE FOLLOW UP SCH (14:00)
[2018-09-01] MEDS ORDERED: Vancomycin(*) 1,250 MG in NS 0.9% 250 ML* 250 ML IVPB ONE (14:00)
--- NOTE | 2018-09-01 14:03 | PN ---
Subjective Date of Service: 09/01/18 Interval History: Patient evaluated overnight by the dairy bar manager due to slight fever and SOB. Patient is unable to give much history but is markedly tachypneic and complaining of SOB. Patient denies pain, cough, CP, abdominal pain, diarrhea, F /C. Family History: Unchanged from Admission Social History: Unchanged from Admission Past Medical History: Unchanged from Admission Objective Active Medications: Acetaminophen (Tylenol Tab*) 650 mg PO Q4H PRN PRN Reason: FEVER/PAIN Last Admin: 08/27/18 19:43 Dose: 650 mg Acetaminophen (Tylenol Supp*) 650 mg [place] Q6H PRN PRN Reason: PAIN or FEVER Hydrocodone Bitart/Acetaminophen ([place] 5-325 Tab*) 1 tab PO Q4H PRN PRN Reason: PAIN - MODERATE Last Admin: 09/01/18 04:58 Dose: 1 tab Vancomycin HCl 1,250 mg/ (Sodium Chloride) 250 mls @ 166.667 mls/hr IVPB ONCE ONE; Protocol Stop: 09/01/18 15:29 Cefepime HCl (Maxipime 1 Gm In Dextrose Duplex (*)) 1 gm in 50 mls @ 100 mls/ hr IV Q12H [facility] Metronidazole/Sodium Chloride (Flagyl 500 Mg Ivpb*) 500 mg in 100 mls @ 100 mls /hr IVPB Q8H [facility] Lactobacillus Rhamnosus (Lactobacillus Acidophilus*) 1 tab PO DAILY [facility] Last Admin: 09/01/18 09:13 Dose: 1 tab Morphine Sulfate (Morphine 4 Mg/Ml Vial (1 Ml)) 2 mg IV Q2H PRN PRN Reason: PAIN - MODERATE Morphine Sulfate (Morphine 4 Mg/Ml Vial (1 Ml)) 4 mg IV Q2H PRN PRN Reason: PAIN - SEVERE Nebivolol (Bystolic Tab (Nf)) 5 mg PO DAILY@0900 [facility] Last Admin: 09/01/18 09:13 Dose: 5 mg Nystatin (Nystatin Top Powder*) 1 applic TOPICAL BID [facility] Last Admin: 09/01/18 09:14 Dose: 1 applic Ondansetron HCl (Zofran Inj*) 4 mg IV Q6H PRN PRN Reason: NAUSEA Pharmacy Consult (Vancomycin Per Pharmacy*) 1 note FOLLOW UP .VANC PER PHARMACY [facility]; Protocol Vancomycin HCl (Vancomycin Cap*) 125 mg PO QID [facility] Last Admin: 09/01/18 09:14 Dose: 125 mg Vital Signs - 8 hr 09/01/18 09/01/18 09/01/18 07:54 08:00 08:09 Temperature 98.7 F Pulse Rate 62 Respiratory 18 20 20 Rate Blood Pressure 124/58 (mmHg) O2 Sat by Pulse 96 96 Oximetry 09/01/18 11:43 Temperature 1 F Pulse Rate 66 Respiratory 20 Rate Blood Pressure 129/45 (mmHg) O2 Sat by Pulse 98 Oximetry Oxygen Devices in Use Now: Nasal Cannula Appearance: Patient is a 78yo female who appears stated age and is sitting in the bed with moderately increased work of breathing. Eyes: No Scleral Icterus, PERRLA Ears/Nose/Mouth/Throat: NL Teeth, Lips, Gums, Clear Oropharnyx, Mucous Membranes Moist Neck: NL Appearance and Movements; NL JVP Respiratory: Symmetrical Chest Expansion and Respiratory Effort, - - Dimininshed breath sounds in B/L Bases. Cardiovascular: NL Sounds; No Murmurs; No JVD, RRR, - - 2+ B/L LE edema. Abdominal: NL Sounds; No Tenderness; No Distention, No Hepatosplenomegaly, - - ANDREW drain in place. Lymphatic: No Cervical Adenopathy Extremities: No Clubbing, Cyanosis Skin: No Nodules or Sclerosis, - - Surgical incision on abdomen. Neurological: - - Alert and oriented only to self. No focal deficits. Result Diagrams: 09/01/18 06:51 09/01/18 06:51 Additional Lab and Data: Laboratory Results - last 24 hr Microbiology and Other Data: Microbiology 08/25/18 18:04 Urine Urine Culture - Preliminary Escherichia Coli 08/25/18 01:57 Urine Urine Culture - Final Assess/Plan/Problems-Billing Assessment: 78yof PMHx CAD, AF, DM, dementia, OA who presents with lethargy and fevers who was found to have a gangrenous gallbladder during cholecystectomy who is now improving well. Patient also had diarrhea and possible C. diff. - Patient Problems (1) Shortness of breath Current Visit: Yes Status: Acute Code(s): R06.02 - SHORTNESS OF BREATH SNOMED Code(s): 431899981 Comment: - Overnight developed SOB with CXR with large pleural effusion or infiltrate of Right Lung - Concern for Hospital Acquired Pneumonia with possible Parapneumonic Effusion - Treat with Cefepime, Vanco, Flagyl - Also possibly Transudative with signs of fluid overload. Stop fluids and trial Lasix - CT ordered to further elucidate size and possible etiology. - Hold Eliquis for possible need for paracentesis. (2) S/P cholecystectomy Current Visit: Yes Status: Acute Code(s): Z90.49 - ACQUIRED ABSENCE OF OTHER SPECIFIED PARTS OF DIGESTIVE TRACT SNOMED Code(s): 282316018 Comment: - POD #2 GB was perforated and gangrene; ANDREW drain - doing well post-op. - Appreciate GI consult- ERCP by Dr. Purvis 08/29 - Surgery following - Cover with Cefepime and Flagyl instead of Zosyn - Hold Eliquis (last dose 08/28 @ 0900), resume today if no additional procedures needed. (3) SHERRY (acute kidney injury) Current Visit: Yes Status: Acute Code(s): N17.9 - ACUTE KIDNEY FAILURE, UNSPECIFIED SNOMED Code(s): 18271210 Comment: - Resolved (4) Diarrhea Current Visit: Yes Status: Acute Code(s): R19.7 - DIARRHEA, UNSPECIFIED SNOMED Code(s): 81135904 Comment: - CDIFF positive ?? colonization - no diarrhea prior to hospitalization. - Started on Oral Vanco 08/27, treat in accordance with first episode due to ? increased pathogenicity strain and concurrent antibiotics. (5) Fever Current Visit: Yes Status: Acute Code(s): R50.9 - FEVER, UNSPECIFIED SNOMED Code(s): 227612835 Comment: - Resolved - Source: probable choledocholithiasis with probably cholangitis, and acute cholecystitis - Highest recorded 08/25 of 104.4. - Cont Zosyn started 08/26 and oral vanco for cdiff - Blood cultures NGTD - 1st UA had negative culture. Repeat UA grew Ecoli in the setting of diarrhea - Chest xray unremarkable (6) Lethargy Current Visit: Yes Status: Acute Code(s): R53.83 - OTHER FATIGUE SNOMED Code(s): 019931635 Comment: - Suspected secondary to toxic encephalopathy; improving - Prior to hospital she was walking with walker or assist on Tuesday and currently needs justino - Will need SANTOS, bed offer for Tuesday - Continue PT/OT in house. (7) Urinary tract infection Current Visit: Yes Status: Acute Comment: - 1st UA had negative culture. Repeat UA grew Ecoli. - Adequately treated with zosyn. (8) CAD (coronary artery disease) Current Visit: Yes Status: Chronic Code(s): I25.10 - ATHSCL HEART DISEASE OF [place] CORONARY ARTERY W/O ANG PCTRS SNOMED Code(s): 46513464 Comment: - asymptomatic -Continue ASA, Lipitor - Echo due to signs of fluid overload (9) Dementia Current Visit: Yes Status: Chronic Code(s): F03.90 - UNSPECIFIED DEMENTIA WITHOUT BEHAVIORAL DISTURBANCE SNOMED Code(s): 80939956 Comment: - Dementia at baseline (10) DVT prophylaxis Current Visit: Yes Status: Chronic Code(s): REU6845 - SNOMED Code(s): 765203460 Comment: - hold Eliquis - SCDs only Status and Disposition: Inpatient. Will need SANTOS at D/C. Bed offer for Tuesday if medically stable.
[2018-09-01] MEDS ORDERED: metroNIDAZOLE IV 500 MG/100ML* 500 MG/100 ML BAG IVPB SCH (16:00)
[2018-09-01 17:02] LABS: Mean Platelet Volume 9.8 fL (7.4-10.4); Platelet Count 272 10^3/uL (150-450)
[2018-09-01] MEDS: Cefepime 1 GM in Dextrose(*) 1 GM/50 ML BAG IV SCH (17:06)
--- NOTE | 2018-09-01 17:33 | ECHO ---
*[facility]* [place] [address] Fax #: [phone] Transthoracic Echocardiogram Patient: Gilda, Height: 64 in / Bhavani Espinoza 162.6 cm : 1940 Weight: 190.6 lb / Study Date: 09/01/2018 86.6 kg Age: 78 BP: 129 / 45 Gender: F BMI/BSA: 32.8 kg/m^2 HR: 68 bpm / 2.01 m^2 *Utilization Management Rn: * Anisa Parrish RDCS RN *Referring Physician: * James Chacko *Reading Physician: * Fabiola Garber MD Indications: Edema History: Atrial fibrillation. CAD. Obesity. Labs, prior tests, procedures, and surgery: Coronary artery bypass grafting. Conclusions Summary: 1. Left ventricle: The cavity size is mildly reduced. Wall thickness is mildly to moderately increased. Systolic function is normal. The estimated ejection fraction is 55-60%. Akinesis of the inferior base. There is no consistent Doppler evidence of clinically significant diastolic dysfunction. 2. Mitral valve: There is trace regurgitation. 3. Aortic valve: The findings are consistent with very mild stenosis. There is trace regurgitation. 4. Tricuspid valve: There is trace to mild regurgitation. The estimated PAP is 42 mmHg. There is mild pulmonary hypertension. 5. Ascending aorta: The ascending aorta is mildly dilated. 6. No previous echocardiogram available. Study data: Transthoracic echocardiogram. Procedure: Transthoracic echocardiography was performed. Image quality was fair. The study was technically limited due to body habitus. Complete 2D, spectral Doppler, and color flow Doppler. Patient status: Inpatient. Patient room number: 336. Rhythm: Normal sinus rhythm with PAC's. Findings Left ventricle: The cavity size is mildly reduced. Wall thickness is mildly to moderately increased. Systolic function is normal. The estimated ejection fraction is 55-60%. Regional wall motion abnormalities: Akinesis of the inferior base. There is no consistent Doppler evidence of clinically significant diastolic dysfunction. Right ventricle: The cavity size is normal. Systolic function is low normal. Ventricular septum: The ventricular septum is normal. Ventricular septal wall motion has a postoperative appearance. There is septal flattening of the interventricular septum consistent with RV volume or pressure overload. Left atrium: The atrium is normal in size. Right atrium: The atrium is normal in size. Mitral valve: The leaflets are mildly thickened. There is no evidence of stenosis. There is trace regurgitation. Aortic valve: The annulus is mildly calcified. The valve is trileaflet. The leaflets are mildly thickened. The findings are consistent with very mild stenosis. There is trace regurgitation. Tricuspid valve: The valve is structurally normal. There is no evidence of stenosis. There is trace to mild regurgitation. The estimated PAP is 42 mmHg. There is mild pulmonary hypertension. Pulmonic valve: The valve is structurally normal. There is no evidence of stenosis. There is trace regurgitation. Aorta: Aortic root: The aortic root is not dilated. Ascending aorta: The ascending aorta is mildly dilated. Aortic arch: The aortic arch is not dilated. Pericardium: There is no pericardial effusion. Pulmonary arteries: The main pulmonary artery is normal-sized. Systemic veins: Not visualized. Measurements Left ventricle Value Ref Right atrium continued Value Ref TORSTEN, LAX (L) 3.4 cm 3.8 - 5.2 SI dim/bsa, ES, 2.0 cm/m^2 1.9 - ESD, LAX 2.7 cm 2.2 - 3.5 A4C 3.1 FS, LAX (L) 21 % - 45 Estimated RAP 8 mm Hg -------- PW, ED, LAX (H) 1.1 cm 0.6 - 0.9 FS (L) 21 % - 45 Aortic valve Value Ref Mid-wall FS 7 % --------- Peak v, S 1.8 m/sec -------- PW, ED (H) 1.1 cm 0.6 - 0.9 VTI, S 37.3 cm -------- PW/ID, ED 0.31 --------- Mean grad, S 7.0 mm Hg -------- E', lat lizeth, TDI (L) 9.2 cm/sec >=10.0 Peak grad, S 13.0 mm Hg - ------- E/e', lat lizeth, TDI 10 --------- LVOT/AV, VTI ratio 0.68 ---- ---- MEJIA, VTI 2.10 cm^2 -------- LVOT Value Ref MEJIA, Vmax 1.80 cm^2 -------- Diam, S 2.00 cm --------- Area 3.1 cm^2 --------- Mitral valve Value Ref Peak flori, S 1.06 m/sec --------- Peak E 0.94 m/sec -------- VTI, S 25.4 cm --------- Peak A 1.23 m/sec -------- Peak grad, S 4 mm Hg --------- Decel time 294 ms -------- Mean grad, S 2 mm Hg --------- Peak grad, D 3.5 mm Hg -------- Peak E/A ratio 0.76 -------- Ventricular septum Value Ref IVS, ED (H) 1.4 cm 0.6 - 0.9 Pulmonic valve Value Ref Peak v, S 0.9 m/sec -------- Right ventricle Value Ref Peak grad, S 3.2 mm Hg -------- TORSTEN, LAX 2.9 cm --------- TORSTEN major ax, A4C (L) 3.2 cm 5.9 - 8.3 Tricuspid valve Value Ref TR peak v (H) 2.9 m/sec <=2.8 Left atrium Value Ref Peak RV-RA grad, S 34 mm Hg -------- LA ID 4.6 cm --------- SI dim ES, LAX 4.6 cm --------- Aortic root Value Ref ML dim, A4C 4.7 cm --------- Root diam 3.1 cm <4.1 SI dim, A4C 5.1 cm --------- Vol, ES, 2-p 58 ml --------- Ascending aorta Value Ref Vol/bsa, ES, 2-p 29 ml/m^2 16 - 34 AAo AP diam, S 3.8 cm -------- Right atrium Value Ref Aortic arch Value Ref SI dim, ES 4.0 cm 3.4 - 5.3 Arch diam 2.3 cm -------- ML dim, ES, A4C 4.2 cm 2.6 - 4.4 SI dim, ES, A4C 4.0 cm 3.4 - 5.3 Decending aorta Value Ref Larissa peak flori 0.5 m/sec -------- Legend: (L) and (H) lulú values outside specified reference range. Prepared and electronically signed by Fabiola Garber MD 09/01/2018 17:33
[2018-09-02] MEDS: Vancomycin CAP* 125 MG CAP PO SCH (00:03)
[2018-09-02] MEDS: VANCOMYCIN PO SOLN* 125 MG/5ML 25 MG/ML PO SCH ×5 (00:05→21:58)
[2018-09-02] MEDS: metroNIDAZOLE IV 500 MG/100ML* 500 MG/100 ML BAG IVPB SCH ×3 (02:12→17:09)
[2018-09-02] MEDS: Cefepime 1 GM in Dextrose(*) 1 GM/50 ML BAG IV SCH ×2 (04:07→15:45)
[2018-09-02 05:49] LABS: ABS Eosinophils 0.4 10^3/ul (0-0.6); ABS Lymphocytes 0.9 10^3/ul (1.0-4.8); ABS Monocytes 0.4 10^3/ul (0-0.8); ABS Neutrophils 13.9 10^3/ul (1.5-7.7); Eosinophil % 2.3 %; Hematocrit 32 % (35-47); Hemoglobin 10.2 g/dL (12.0-16.0); Lymphocyte % 5.8 %; Mean Corpuscular HGB Conc 32 g/dL (31-36); Mean Corpuscular Hemoglobin 28 pg (27-31); Mean Corpuscular Volume 88 fL (80-97); Mean Platelet Volume 9.9 fL (7.4-10.4); Platelet Count 284 10^3/uL (150-450); Red Blood Count 3.59 10^6 /uL (3.70-4.87); Red Cell Distribution Width 17 % (10.5-15); White Blood Count 15.7 10^3/uL (3.5-10.8)
[2018-09-02 05:58] LABS: Calcium 8.4 mg/dL (8.6-10.3); EGFR African American 52.9 (>60); EGFR Non-African American 43.8 (>60)
[2018-09-02 06:17] LABS: Vancomycin Trough 10.8 mcg/mL
[2018-09-02] MEDS: Vancomycin(*) 1,000 MG in NS 0.9% 250 ML* 250 ML IVPB SCH ×2 (06:23→19:13)
[2018-09-02] MEDS ORDERED: Furosemide IV* 10 MG/ML 2 ML VIAL (20 MG) IV SLOW PU ONE (07:00)
[2018-09-02] MEDS: Nystatin TOP POWDER* 15 GM BTL TOPICAL SCH ×2 (08:10→22:00)
[2018-09-02] MEDS: CMC:Nebivolol TAB (NF) 2.5 MG TAB PO SCH (08:15)
[2018-09-02] MEDS: Acetaminophen TAB* 325 MG PO PRN (08:15)
[2018-09-02] MEDS: Lactobacillus Acidophilus* 1 TAB PO SCH (08:15)
[2018-09-02 08:33] LABS: Urine Appearance Cloudy; Urine Bacteria Absent (Absent); Urine Bilirubin Negative (Negative); Urine Blood 1+ (Negative); Urine Color Yellow; Urine Glucose Negative (Negative); Urine Ketones Negative (Negative); Urine Nitrite Negative (Negative); Urine Protein Negative (Negative); Urine Red Blood Cell Absent (Absent); Urine Specific Gravity 1.016 (1.010-1.030); Urine Urobilinogen Negative (Negative); Urine White Blood Cell Trace(0-5/hpf) (Absent)
--- NOTE | 2018-09-02 11:16 | PN ---
Progress Note - Progress Note Date of Service: 09/02/18 SOAP: Subjective: Reported SOB per and staff. W/u by CXR and CT shows RLL collapse and R effusion for which thoracentesis requested by Hospitalist. RN notes pt has had some abd pain. No N/V. Objective: Vital Signs Temp 97.8 F 09/02/18 08:13 Pulse 77 09/02/18 08:01 Resp 24 09/02/18 08:13 BP 150/64 09/02/18 08:01 Pulse Ox 93 09/02/18 08:01 Gen: lethargic, responds to verbal stimuli. Chest: decr BS and dullness to percussion on R Abd: incisions c/d/i; ANDREW o/p serous. Intake & Output 09/01/18 09/02/18 09/02/18 18:59 06:59 18:59 Intake Total 1987 1001 230 Output Total 40 0 1800 Balance 1948 1001 -1570 Weight 204 lb 12.8 oz Intake: IV Fluids 93 D5W 1/2 NS 20 meq KCL 16 NS (0.9%) 77 IVPB 1868 608 ABX - CEFEPIME 52 ABX - FLAGYL 105 ABX - ZOSYN 125 294 D5W 1/2 NS 20 meq KCL 1743 LR 157 Oral 120 300 230 Output: ANDREW #1 40 50 Urine 0 Roberts 1750 Other: Estimated Void Large Large Medium # Bowel Movements 1 Estimated Stool Amount Medium # Voids 2 1 1 Laboratory Results - last 24 hr 09/01/18 09/01/18 09/02/18 06:51 16:54 05:30 WBC RBC Hgb Hct MCV MCH MCHC RDW Plt Count 272 MPV 9.8 Neut % (Auto) Lymph % (Auto) [place] % (Auto) Eos % (Auto) Baso % (Auto) Absolute Neuts (auto) Absolute Lymphs (auto) Absolute Monos (auto) Absolute Eos (auto) Absolute Basos (auto) Absolute Nucleated RBC Nucleated RBC % Sodium 145 Potassium 4.0 Chloride 118 H Carbon Dioxide 23 Anion Gap 4 BUN 25 H Creatinine 1.19 H Est GFR ( Amer) 52.9 Est GFR (Non-Af Amer) 43.8 BUN/Creatinine Ratio 21.0 H Glucose 138 H Calcium 8.4 L Magnesium 2.0 Lactate Dehydrogenase 240 C-Reactive Protein 142.05 H Urine Color Urine Appearance Urine pH Ur Specific [place] Urine Protein Urine Ketones Urine Blood Urine Nitrate Urine Bilirubin Urine Urobilinogen Ur Leukocyte Esterase Urine WBC (Auto) Urine RBC (Auto) Urine Bacteria Urine Glucose Vancomycin Trough 10.8 09/02/18 09/02/18 05:30 07:45 WBC 15.7 H RBC 3.59 L Hgb 10.2 L Hct 32 L MCV 88 MCH 28 MCHC 32 RDW 17 H Plt Count 284 MPV 9.9 Neut % (Auto) 88.8 Lymph % (Auto) 5.8 Benson % (Auto) 2.8 Eos % (Auto) 2.3 Baso % (Auto) 0.3 Absolute Neuts (auto) 13.9 H Absolute Lymphs (auto) 0.9 L Absolute Monos (auto) 0.4 Absolute Eos (auto) 0.4 Absolute Basos (auto) 0.0 Absolute Nucleated RBC 0.0 Nucleated RBC % 0.0 Sodium Potassium Chloride Carbon Dioxide Anion Gap BUN Creatinine Est GFR ( Amer) Est GFR (Non-Af Amer) BUN/Creatinine Ratio Glucose Calcium Magnesium Lactate Dehydrogenase C-Reactive Protein Urine Color Yellow Urine Appearance Cloudy Urine pH 5.0 Ur Specific [place] 1.016 Urine Protein Negative Urine Ketones Negative Urine Blood 1+ A Urine Nitrate Negative Urine Bilirubin Negative Urine Urobilinogen Negative Ur Leukocyte Esterase Negative Urine WBC (Auto) Trace(0-5/hpf) Urine RBC (Auto) Absent Urine Bacteria Absent Urine Glucose Negative Vancomycin Trough Imaging as above was reviewed by me. Assessment: POD#3 s/p lap yue. R pleural effusion, poss PNA. Plan: Cont ANDREW for now; remove day of d/c. Will perform thoracentesis. The I/R/B/A/option of no tx were discussed with the . Risks explained including, not ltd to: bleeding, infxn, pain, lung injury, need for additional procedures. He had all questions answered, stated understanding and agreed to proceed.
--- NOTE | 2018-09-02 11:27 | PN ---
Subjective Date of Service: 09/02/18 Interval History: Patient is endorsing some SOB. Patient denies Pain. Otherwise unable to obtain ROS. Patient is very drowsy today. Family History: Unchanged from Admission Social History: Unchanged from Admission Past Medical History: Unchanged from Admission Objective Active Medications: Acetaminophen (Tylenol Tab*) 650 mg PO Q4H PRN PRN Reason: FEVER/PAIN Last Admin: 09/02/18 08:15 Dose: 650 mg Acetaminophen (Tylenol Supp*) 650 mg [place] Q6H PRN PRN Reason: PAIN or FEVER Hydrocodone Bitart/Acetaminophen ([place] 5-325 Tab*) 1 tab PO Q4H PRN PRN Reason: PAIN - MODERATE Last Admin: 09/01/18 15:13 Dose: 1 tab Cefepime HCl (Maxipime 1 Gm In Dextrose Duplex (*)) 1 gm in 50 mls @ 100 mls/ hr IV Q12H [facility] Last Admin: 09/02/18 04:07 Dose: 100 mls/hr Vancomycin HCl 1,000 mg/ (Sodium Chloride) 250 mls @ 166.667 mls/hr IVPB Q12H [facility] Last Admin: 09/02/18 06:23 Dose: 166.667 mls/hr Metronidazole/Sodium Chloride (Flagyl 500 Mg Ivpb*) 500 mg in 100 mls @ 100 mls /hr IVPB 0200,1000,1800 [facility] Last Admin: 09/02/18 10:01 Dose: 100 mls/hr Lactobacillus Rhamnosus (Lactobacillus Acidophilus*) 1 tab PO DAILY [facility] Last Admin: 09/02/18 08:15 Dose: 1 tab Morphine Sulfate (Morphine 4 Mg/Ml Vial (1 Ml)) 2 mg IV Q2H PRN PRN Reason: PAIN - MODERATE Morphine Sulfate (Morphine 4 Mg/Ml Vial (1 Ml)) 4 mg IV Q2H PRN PRN Reason: PAIN - SEVERE Nebivolol (Bystolic Tab (Nf)) 5 mg PO DAILY@0900 [facility] Last Admin: 09/02/18 08:15 Dose: 5 mg Nystatin (Nystatin Top Powder*) 1 applic TOPICAL BID [facility] Last Admin: 09/02/18 08:10 Dose: 1 applic Ondansetron HCl (Zofran Inj*) 4 mg IV Q6H PRN PRN Reason: NAUSEA Pharmacy Consult (Vancomycin Per Pharmacy*) 1 note FOLLOW UP .VANC PER PHARMACY [facility]; Protocol Pharmacy Profile Note (Vancomycin Trough Check) 1 note FOLLOW UP 0530 ONE Stop: 09/03/18 05:31 Vancomycin HCl (Firvanq*) 125 mg PO QID [facility] Last Admin: 09/02/18 08:15 Dose: 125 mg Vital Signs - 8 hr 09/02/18 09/02/18 09/02/18 04:36 08:00 08:01 Temperature 98.8 F Pulse Rate 71 77 Respiratory 28 24 16 Rate Blood Pressure 110/58 150/64 (mmHg) O2 Sat by Pulse 97 93 93 Oximetry 09/02/18 08:13 Temperature 97.8 F Pulse Rate Respiratory 24 Rate Blood Pressure (mmHg) O2 Sat by Pulse Oximetry Oxygen Devices in Use Now: Nasal Cannula Appearance: Patient is a 78yo female who appears stated age and is sitting in the bed with mildly increased WOB. Eyes: No Scleral Icterus, PERRLA Ears/Nose/Mouth/Throat: NL Teeth, Lips, Gums, Clear Oropharnyx, Mucous Membranes Moist Neck: NL Appearance and Movements; NL JVP, Trachea Midline Respiratory: Symmetrical Chest Expansion and Respiratory Effort, - - Absent Lung sounds in RLL. Cardiovascular: NL Sounds; No Murmurs; No JVD, RRR, - - 1+ B/L LE edema. Abdominal: NL Sounds; No Tenderness; No Distention, No Hepatosplenomegaly Lymphatic: No Cervical Adenopathy Extremities: No Clubbing, Cyanosis Skin: No Rash or Ulcers Neurological: Alert and Oriented x 3, NL Sensation, NL Muscle Strength and Tone , - - CN II-XII intact. Lines/Tubes/Other Access: Clean, Dry and Intact Roberts Result Diagrams: 09/02/18 05:30 09/02/18 05:30 Additional Lab and Data: Laboratory Results - last 24 hr Microbiology and Other Data: Microbiology 08/25/18 18:04 Urine Urine Culture - Preliminary Escherichia Coli 08/25/18 01:57 Urine Urine Culture - Final Assess/Plan/Problems-Billing Assessment: 78yof PMHx CAD, AF, DM, dementia, OA who presents with lethargy and fevers who was found to have a gangrenous gallbladder during cholecystectomy who is now improving well. Patient also had diarrhea and possible C. diff. - Patient Problems (1) Shortness of breath Current Visit: Yes Status: Acute Code(s): R06.02 - SHORTNESS OF BREATH SNOMED Code(s): 825818966 Comment: - Developed SOB with CXR with large pleural effusion or infiltrate of Right Lung , CT shows Large Pleural Effusion on Right side. Appreciate Surgery doing Diagnostic and therapeutic Thoracentesis. - Concern for Hospital Acquired Pneumonia with possible Parapneumonic Effusion - Treat with Cefepime, Vanco, Flagyl - Also possibly Transudative with signs of fluid overload. Stop fluids and trial Lasix - Echo shows normal EF with possibility of predisposition to HFpEF. - Hold Eliquis - Fluid analysis pending to determine etiology of effusion (2) S/P cholecystectomy Current Visit: Yes Status: Acute Code(s): Z90.49 - ACQUIRED ABSENCE OF OTHER SPECIFIED PARTS OF DIGESTIVE TRACT SNOMED Code(s): 872921392 Comment: - POD #3 GB was perforated and gangrene; ANDREW drain - doing well post-op. - Appreciate GI consult- ERCP by Dr. Purvis 08/29 - Surgery following - Cover with Cefepime and Flagyl instead of Zosyn - Hold Eliquis (last dose 08/28 @ 0900), resume later today. (3) SHERRY (acute kidney injury) Current Visit: Yes Status: Acute Code(s): N17.9 - ACUTE KIDNEY FAILURE, UNSPECIFIED SNOMED Code(s): 74224330 Comment: - Resolved, Cret Stable. (4) Diarrhea Current Visit: Yes Status: Acute Code(s): R19.7 - DIARRHEA, UNSPECIFIED SNOMED Code(s): 01848912 Comment: - CDIFF positive ?? colonization - no diarrhea prior to hospitalization. - Started on Oral Vanco 08/27, treat in accordance with first episode due to ? increased pathogenicity strain and concurrent antibiotics. (5) Fever Current Visit: Yes Status: Acute Code(s): R50.9 - FEVER, UNSPECIFIED SNOMED Code(s): 488498452 Comment: - Resolved - Source: probable choledocholithiasis with probably cholangitis, and acute cholecystitis - Highest recorded 08/25 of 104.4. - Cont Zosyn started 08/26 and oral vanco for cdiff - Blood cultures NGTD - 1st UA had negative culture. Repeat UA grew Ecoli in the setting of diarrhea - Chest xray unremarkable (6) Lethargy Current Visit: Yes Status: Acute Code(s): R53.83 - OTHER FATIGUE SNOMED Code(s): 734392183 Comment: - Suspected secondary to toxic encephalopathy; improving - Prior to hospital she was walking with walker or assist on Tuesday and currently needs justino - Will need SANTOS, bed offer for Tuesday - Continue PT/OT in house. (7) Urinary tract infection Current Visit: Yes Status: Acute Comment: - 1st UA had negative culture. Repeat UA grew Ecoli. - Adequately treated with zosyn. (8) CAD (coronary artery disease) Current Visit: Yes Status: Chronic Code(s): I25.10 - ATHSCL HEART DISEASE OF [place] CORONARY ARTERY W/O ANG PCTRS SNOMED Code(s): 07931968 Comment: - asymptomatic - Continue Lipitor, Nebivolol - Echo shows normal EF - Resume Aspirin tomorrow (9) Dementia Current Visit: Yes Status: Chronic Code(s): F03.90 - UNSPECIFIED DEMENTIA WITHOUT BEHAVIORAL DISTURBANCE SNOMED Code(s): 17342446 Comment: - Dementia at baseline (10) DVT prophylaxis Current Visit: Yes Status: Chronic Code(s): PZG1050 - SNOMED Code(s): 543471245 Comment: - hold Eliquis - SCDs only Status and Disposition: Inpatient. Will need SANTOS at D/C. Bed offer for Tuesday if medically stable.
[2018-09-02 11:54] LABS: Body Fluid Source Pleural Fluid
--- NOTE | 2018-09-02 12:49 | PRO ---
CC: Suraj Garza MD PROCEDURE REPORT: DATE OF PROCEDURE: 09/02/18 PREPROCEDURE DIAGNOSIS: Right pleural effusion. POSTPROCEDURE DIAGNOSIS: Right pleural effusion. PROCEDURE: Right thoracentesis. SURGEON: Tim Mahmood MD. VARNISH DIPPER: None. ANESTHESIA: 1% lidocaine plain used locally. ESTIMATED BLOOD LOSS: None. DRAINS: None. COMPLICATIONS: None. DESCRIPTION OF PROCEDURE: The patient was positioned sitting upright in the bed. She had time-out pe rformed. The right side had been marked, prepped and draped in the sterile fashion. Local anesthetic was infiltrated inline with the midclavicular site approximately 7 cm below the tip of the scapula on the right. The underlying rib was palpated. Anesthetic was infiltrated down to thi s and over the superior aspect. Pleural cavity was entered and straw-colored fluid was aspirated. N ext, the skin was nicked with a 11 blade scalpel and an 8-Cymraes thoracentesis catheter was inserted. The needle was withdrawn after aspirating fluid. The catheter was connected to evacuate the caniste r and approximately 500 mL of serosanguineous fluid was removed. The catheter was removed and bandag e applied to this site. The patient tolerated the procedure well. There were no immediate complicat ions. [id number]/[facility] #: [id number]
[2018-09-02 13:22] LABS: Body Fluid Mono 1 %; Body Fluid Other Cells 4
[2018-09-02] MEDS: Apixaban* 5 MG TAB PO SCH (21:58)
[2018-09-03] MEDS: metroNIDAZOLE IV 500 MG/100ML* 500 MG/100 ML BAG IVPB SCH ×3 (02:34→17:55)
[2018-09-03] MEDS: Cefepime 1 GM in Dextrose(*) 1 GM/50 ML BAG IV SCH ×2 (03:47→15:25)
[2018-09-03] MEDS ORDERED: Vancomycin Trough Check NOTE FOLLOW UP ONE (05:30)
[2018-09-03 05:42] LABS: Hematocrit 33 % (35-47); Hemoglobin 10.6 g/dL (12.0-16.0); Mean Corpuscular HGB Conc 33 g/dL (31-36); Mean Corpuscular Hemoglobin 29 pg (27-31); Mean Corpuscular Volume 88 fL (80-97); Mean Platelet Volume 9.7 fL (7.4-10.4); Platelet Count 296 10^3/uL (150-450); Red Blood Count 3.68 10^6 /uL (3.70-4.87); Red Cell Distribution Width 17 % (10.5-15); White Blood Count 13.8 10^3/uL (3.5-10.8)
[2018-09-03 05:58] LABS: Albumin 2.1 g/dL (3.2-5.2); Albumin/Globulin Ratio 0.6 (1-3); BUN/Creatinine Ratio 20.2 (8-20); Calcium 8.2 mg/dL (8.6-10.3); EGFR African American 65.5 (>60); EGFR Non-African American 54.1 (>60); Globulin 3.5 g/dL (2-4); Magnesium 1.8 mg/dL (1.9-2.7); Potassium 3.8 mmol/L (3.5-5.0); Total Bilirubin 0.8 mg/dL (0.2-1.0); Total Protein 5.6 g/dL (6.4-8.9)
[2018-09-03 06:03] LABS: ABS Basophils 0.1 10^3/ul (0-0.2); ABS Eosinophils 0.3 10^3/ul (0-0.6); ABS Monocytes 0.4 10^3/ul (0-0.8); ABS Neutrophils 12.1 10^3/ul (1.5-7.7); Nucleated Red Blood Cells % 0.1
[2018-09-03] MEDS: Acetaminophen TAB* 325 MG PO PRN (06:14)
[2018-09-03] MEDS: HYDROcodone/ACETAMIN 5-325 MG* 1 TAB PO PRN ×2 (06:15→18:06)
[2018-09-03] MEDS: Vancomycin(*) 1,000 MG in NS 0.9% 250 ML* 250 ML IVPB SCH (06:48)
[2018-09-03] MEDS ORDERED: Furosemide IV* 10 MG/ML 2 ML VIAL (20 MG) IV SLOW PU ONE (07:59)
[2018-09-03] MEDS ORDERED: Magnesium Sulfate 2 GM IV* 2 GM/50 ML BAG IVPB ONE (08:00)
[2018-09-03] MEDS: Apixaban* 5 MG TAB PO SCH ×2 (09:21→20:42)
[2018-09-03] MEDS: Lactobacillus Acidophilus* 1 TAB PO SCH (09:21)
[2018-09-03] MEDS: CMC:Nebivolol TAB (NF) 2.5 MG TAB PO SCH (09:21)
[2018-09-03] MEDS: Nystatin TOP POWDER* 15 GM BTL TOPICAL SCH ×2 (09:58→20:39)
[2018-09-03] MEDS: VANCOMYCIN PO SOLN* 125 MG/5ML 25 MG/ML PO SCH ×4 (09:58→20:40)
--- NOTE | 2018-09-03 11:49 | PN ---
Subjective Date of Service: 09/03/18 Interval History: Patient's mental status has improved dramatically overnight. Patient is now alert, thirsty and able to make her needs known well. Patient denies pain, SOB, CP, Dizziness, N/V, abdominal pain, cough, or other pain. Family History: Unchanged from Admission Social History: Unchanged from Admission Past Medical History: Unchanged from Admission Objective Active Medications: Acetaminophen (Tylenol Tab*) 650 mg PO Q4H PRN PRN Reason: FEVER/PAIN Last Admin: 09/03/18 06:14 Dose: 325 mg Acetaminophen (Tylenol Supp*) 650 mg [place] Q6H PRN PRN Reason: PAIN or FEVER Hydrocodone Bitart/Acetaminophen ([place] 5-325 Tab*) 1 tab PO Q4H PRN PRN Reason: PAIN - MODERATE Last Admin: 09/03/18 06:15 Dose: 1 tab Apixaban (Eliquis*) 5 mg PO BID [facility] Last Admin: 09/03/18 09:21 Dose: 5 mg Cefepime HCl (Maxipime 1 Gm In Dextrose Duplex (*)) 1 gm in 50 mls @ 100 mls/ hr IV Q12H [facility] Last Admin: 09/03/18 03:47 Dose: 100 mls/hr Metronidazole/Sodium Chloride (Flagyl 500 Mg Ivpb*) 500 mg in 100 mls @ 100 mls /hr IVPB 0200,1000,1800 [facility] Last Admin: 09/03/18 10:56 Dose: 100 mls/hr Vancomycin HCl 750 mg/ Sodium (Chloride) 250 mls @ 166.667 mls/hr IVPB Q12H [facility] Lactobacillus Rhamnosus (Lactobacillus Acidophilus*) 1 tab PO DAILY [facility] Last Admin: 09/03/18 09:21 Dose: 1 tab Morphine Sulfate (Morphine 4 Mg/Ml Vial (1 Ml)) 2 mg IV Q2H PRN PRN Reason: PAIN - MODERATE Morphine Sulfate (Morphine 4 Mg/Ml Vial (1 Ml)) 4 mg IV Q2H PRN PRN Reason: PAIN - SEVERE Nebivolol (Bystolic Tab (Nf)) 5 mg PO DAILY@0900 [facility] Last Admin: 09/03/18 09:21 Dose: 5 mg Nystatin (Nystatin Top Powder*) 1 applic TOPICAL BID [facility] Last Admin: 09/03/18 09:58 Dose: 1 applic Ondansetron HCl (Zofran Inj*) 4 mg IV Q6H PRN PRN Reason: NAUSEA Pharmacy Consult (Vancomycin Per Pharmacy*) 1 note FOLLOW UP .VANC PER PHARMACY [facility]; Protocol Pharmacy Profile Note (Vancomycin Trough Check) 1 note FOLLOW UP ONCE ONE Stop: 09/05/18 11:31 Vancomycin HCl (Firvanq*) 125 mg PO QID [facility] Last Admin: 09/03/18 09:58 Dose: 125 mg Vital Signs - 8 hr 09/03/18 09/03/18 09/03/18 04:37 06:15 07:42 Temperature 97.4 F Pulse Rate 69 Respiratory 20 24 24 Rate Blood Pressure 154/64 (mmHg) O2 Sat by Pulse 99 99 Oximetry 09/03/18 09/03/18 07:45 09:59 Temperature 98.3 F Pulse Rate 77 Respiratory 26 16 Rate Blood Pressure 136/56 (mmHg) O2 Sat by Pulse 100 Oximetry Oxygen Devices in Use Now: Nasal Cannula Appearance: Patient is a 78yo female sitting in the bed in [facility]. Eyes: No Scleral Icterus, PERRLA Ears/Nose/Mouth/Throat: NL Teeth, Lips, Gums, Clear Oropharnyx, Mucous Membranes Moist Neck: NL Appearance and Movements; NL JVP, Trachea Midline Respiratory: Symmetrical Chest Expansion and Respiratory Effort, - - Diminished breath sounds in RLE, improved aeration. Cardiovascular: NL Sounds; No Murmurs; No JVD, RRR, - - Trace B/L LE edema. Abdominal: NL Sounds; No Tenderness; No Distention, No Hepatosplenomegaly, - - Drain in place Lymphatic: No Cervical Adenopathy Extremities: No Edema, No Clubbing, Cyanosis Skin: No Nodules or Sclerosis Neurological: - - CN II-XII intact. Result Diagrams: 09/03/18 05:30 09/03/18 05:30 Additional Lab and Data: Laboratory Results - last 24 hr Microbiology and Other Data: Microbiology 08/25/18 18:04 Urine Urine Culture - Preliminary Escherichia Coli 08/25/18 01:57 Urine Urine Culture - Final Assess/Plan/Problems-Billing Assessment: 78yof PMHx CAD, AF, DM, dementia, OA who presents with lethargy and fevers who was found to have a gangrenous gallbladder during cholecystectomy who is now improving well. Patient also had diarrhea and possible C. diff. - Patient Problems (1) Shortness of breath Current Visit: Yes Status: Acute Code(s): R06.02 - SHORTNESS OF BREATH SNOMED Code(s): 234032414 Comment: - Developed SOB with CXR with large pleural effusion or infiltrate of Right Lung , CT shows Large Pleural Effusion on Right side. Appreciate Surgery doing Diagnostic and therapeutic Thoracentesis. - Patient is improving well today. - Concern for Hospital Acquired Pneumonia with possible Parapneumonic Effusion - Treat with Cefepime, Vanco, Flagyl - Also possibly Transudative with signs of fluid overload. Patient has gained over 10lb since admission despite very poor oral intake. Stop fluids and trial Lasix - Echo shows normal EF with possibility of predisposition to HFpEF. - Fluid analysis pending to determine etiology of effusion, will be 2-3 days, will treat both fluid overload and HAP as patient is improving with concurrent treatment. (2) S/P cholecystectomy Current Visit: Yes Status: Acute Code(s): Z90.49 - ACQUIRED ABSENCE OF OTHER SPECIFIED PARTS OF DIGESTIVE TRACT SNOMED Code(s): 672515921 Comment: - POD #4 GB was perforated and gangrene; ANDREW drain - doing well post-op. - Appreciate GI consult- ERCP by Dr. Purvis 08/29 - Surgery following - Continue Cefepime/Flagyl (3) SHERRY (acute kidney injury) Current Visit: Yes Status: Acute Code(s): N17.9 - ACUTE KIDNEY FAILURE, UNSPECIFIED SNOMED Code(s): 01324371 Comment: - Resolved, Cret Stable. (4) Diarrhea Current Visit: Yes Status: Acute Code(s): R19.7 - DIARRHEA, UNSPECIFIED SNOMED Code(s): 63507186 Comment: - CDIFF positive ?? colonization - no diarrhea prior to hospitalization. - Started on Oral Vanco 08/27, treat in accordance with first episode due to ? increased pathogenicity strain and concurrent antibiotics. (5) Fever Current Visit: Yes Status: Acute Code(s): R50.9 - FEVER, UNSPECIFIED SNOMED Code(s): 506210958 Comment: - Resolved - Source: probable choledocholithiasis with probably cholangitis, and acute cholecystitis - Highest recorded 08/25 of 104.4. - Cont Zosyn started 08/26 and oral vanco for cdiff - Blood cultures NGTD - 1st UA had negative culture. Repeat UA grew Ecoli in the setting of diarrhea - Chest xray unremarkable (6) Lethargy Current Visit: Yes Status: Acute Code(s): R53.83 - OTHER FATIGUE SNOMED Code(s): 430612994 Comment: - Suspected secondary to toxic encephalopathy; Fluctuating course. - Prior to hospital she was walking with walker or assist on Tuesday and currently needs justino - Will need SANTOS, bed offer for Tuesday - Continue PT/OT in house. - Greatly improved today. (7) Urinary tract infection Current Visit: Yes Status: Acute Comment: - 1st UA had negative culture. Repeat UA grew Ecoli. - Adequately treated with zosyn. (8) Atrial fibrillation Current Visit: Yes Status: Chronic Code(s): I48.91 - UNSPECIFIED ATRIAL FIBRILLATION SNOMED Code(s): 22889259 Comment: - Continue Nebivolol - Home Eliquis - Rate Controlled (9) CAD (coronary artery disease) Current Visit: Yes Status: Chronic Code(s): I25.10 - ATHSCL HEART DISEASE OF [place] CORONARY ARTERY W/O ANG PCTRS SNOMED Code(s): 07488737 Comment: - asymptomatic - Continue Lipitor, Nebivolol - Echo shows normal EF - Resume Aspirin tomorrow (10) Dementia Current Visit: Yes Status: Chronic Code(s): F03.90 - UNSPECIFIED DEMENTIA WITHOUT BEHAVIORAL DISTURBANCE SNOMED Code(s): 72443536 Comment: - Dementia at baseline (11) DVT prophylaxis Current Visit: Yes Status: Chronic Code(s): ZZH3123 - SNOMED Code(s): 960370372 Comment: - Resume Eliquis Status and Disposition: Inpatient. Will need SANTOS at D/C. Bed offer for Tuesday if medically stable.
[2018-09-03] MEDS: Vancomycin(*) 750 MG in NS 0.9% 250 ML* 250 ML IVPB SCH (12:11)
[2018-09-04] MEDS: HYDROcodone/ACETAMIN 5-325 MG* 1 TAB PO PRN (00:22)
[2018-09-04] MEDS: Vancomycin(*) 750 MG in NS 0.9% 250 ML* 250 ML IVPB SCH ×2 (00:24→12:29)
[2018-09-04] MEDS: metroNIDAZOLE IV 500 MG/100ML* 500 MG/100 ML BAG IVPB SCH ×2 (02:16→10:14)
[2018-09-04] MEDS: Cefepime 1 GM in Dextrose(*) 1 GM/50 ML BAG IV SCH (03:34)
[2018-09-04 05:44] LABS: Hematocrit 31 % (35-47); Hemoglobin 10.1 g/dL (12.0-16.0); Mean Corpuscular HGB Conc 33 g/dL (31-36); Mean Corpuscular Hemoglobin 29 pg (27-31); Mean Corpuscular Volume 87 fL (80-97); Platelet Count 294 10^3/uL (150-450); Red Cell Distribution Width 16 % (10.5-15); White Blood Count 14.3 10^3/uL (3.5-10.8)
[2018-09-04 06:51] LABS: ABS Basophils 0.2 10^3/ul (0-0.2); ABS Eosinophils 0.3 10^3/ul (0-0.6); ABS Lymphocytes 0.9 10^3/ul (1.0-4.8); ABS Monocytes 0.5 10^3/ul (0-0.8); ABS Neutrophils 12.4 10^3/ul (1.5-7.7); Eosinophil % 2.3 %; Lymphocyte % 6.6 %
[2018-09-04] MEDS: VANCOMYCIN PO SOLN* 125 MG/5ML 25 MG/ML PO SCH ×4 (09:09→21:46)
[2018-09-04] MEDS: Lactobacillus Acidophilus* 1 TAB PO SCH (09:10)
[2018-09-04] MEDS: CMC:Nebivolol TAB (NF) 2.5 MG TAB PO SCH (09:10)
[2018-09-04] MEDS: Nystatin TOP POWDER* 15 GM BTL TOPICAL SCH ×2 (09:10→21:34)
[2018-09-04] MEDS: Apixaban* 5 MG TAB PO SCH ×2 (09:10→21:46)
[2018-09-04] MEDS: Aspirin EC TAB* 81 MG TAB.EC PO SCH (09:10)
[2018-09-04 11:18] LABS: BUN/Creatinine Ratio 19.6 (8-20); Calcium 7.4 mg/dL (8.6-10.3); EGFR African American 71.3 (>60); EGFR Non-African American 58.9 (>60); Magnesium 1.8 mg/dL (1.9-2.7); Potassium 3.2 mmol/L (3.5-5.0)
[2018-09-04] MEDS ORDERED: Furosemide IV* 10 MG/ML 2 ML VIAL (20 MG) IV SLOW PU ONE (12:29)
[2018-09-04] MEDS ORDERED: Magnesium Sulfate 2 GM IV* 2 GM/50 ML BAG IVPB ONE (12:30)
[2018-09-04] MEDS ORDERED: Potassium Chlor TAB* 20 MEQ TAB.ER PO ONE (12:30)
[2018-09-04] MEDS: Acetaminophen TAB* 325 MG PO PRN ×2 (12:36→21:45)
--- NOTE | 2018-09-04 13:56 | PN ---
Subjective Date of Service: 09/04/18 Interval History: Patient is feeling better today. Patient has moderate abdominal pain. Patient denies dizziness, palpitations, cough, F/C, N/V, CP, SOB, or other pain. Family History: Unchanged from Admission Social History: Unchanged from Admission Past Medical History: Unchanged from Admission Objective Active Medications: Acetaminophen (Tylenol Tab*) 650 mg PO Q4H PRN PRN Reason: FEVER/PAIN Last Admin: 09/04/18 12:36 Dose: 650 mg Acetaminophen (Tylenol Supp*) 650 mg [place] Q6H PRN PRN Reason: PAIN or FEVER Hydrocodone Bitart/Acetaminophen ([place] 5-325 Tab*) 1 tab PO Q4H PRN PRN Reason: PAIN - MODERATE Last Admin: 09/04/18 00:22 Dose: 1 tab Amoxicillin/Clavulanate Potassium (Augmentin Tab*) 875 mg PO BID [facility] Apixaban (Eliquis*) 5 mg PO BID [facility] Last Admin: 09/04/18 09:10 Dose: 5 mg Aspirin (Aspirin Ec Tab*) 81 mg PO DAILY [facility] Last Admin: 09/04/18 09:10 Dose: 81 mg Lactobacillus Rhamnosus (Lactobacillus Acidophilus*) 1 tab PO DAILY [facility] Last Admin: 09/04/18 09:10 Dose: 1 tab Morphine Sulfate (Morphine 4 Mg/Ml Vial (1 Ml)) 2 mg IV Q2H PRN PRN Reason: PAIN - MODERATE Morphine Sulfate (Morphine 4 Mg/Ml Vial (1 Ml)) 4 mg IV Q2H PRN PRN Reason: PAIN - SEVERE Nebivolol (Bystolic Tab (Nf)) 5 mg PO DAILY@0900 [facility] Last Admin: 09/04/18 09:10 Dose: 5 mg Nystatin (Nystatin Top Powder*) 1 applic TOPICAL BID [facility] Last Admin: 09/04/18 09:10 Dose: 1 applic Ondansetron HCl (Zofran Inj*) 4 mg IV Q6H PRN PRN Reason: NAUSEA Pharmacy Consult (Vancomycin Per Pharmacy*) 1 note FOLLOW UP .VANC PER PHARMACY [facility]; Protocol Potassium Chloride (Potassium Chloride Liquid) 40 meq PO ONCE ONE Stop: 09/04/18 14:01 Last Admin: 09/04/18 13:34 Dose: 40 meq Vancomycin HCl (Firvanq*) 125 mg PO QID [facility] Last Admin: 09/04/18 12:37 Dose: 125 mg Vital Signs - 8 hr 09/04/18 09/04/18 09/04/18 07:41 07:55 11:46 Temperature 97.5 F 98.0 F Pulse Rate 76 75 Respiratory 24 24 24 Rate Blood Pressure 136/61 129/58 (mmHg) O2 Sat by Pulse 98 97 Oximetry Oxygen Devices in Use Now: Nasal Cannula Appearance: Patient is a 78yo female who appears stated age and is sitting in the bed in [facility]. Eyes: No Scleral Icterus, PERRLA Ears/Nose/Mouth/Throat: NL Teeth, Lips, Gums, Clear Oropharnyx, Mucous Membranes Moist Neck: NL Appearance and Movements; NL JVP, Trachea Midline Respiratory: Symmetrical Chest Expansion and Respiratory Effort, - - Diminished in Right base. Cardiovascular: NL Sounds; No Murmurs; No JVD, RRR, No Edema Abdominal: No Hepatosplenomegaly, - - Drain in abdomen. Tender to palpation. Lymphatic: No Cervical Adenopathy Extremities: No Edema, No Clubbing, Cyanosis Skin: No Nodules or Sclerosis, - - Well healing Neurological: - - CN II-XII intact. Oriented only to self. Result Diagrams: 09/04/18 05:35 09/04/18 10:24 Additional Lab and Data: Laboratory Results - last 24 hr Microbiology and Other Data: Microbiology 08/25/18 18:04 Urine Urine Culture - Preliminary Escherichia Coli 08/25/18 01:57 Urine Urine Culture - Final Assess/Plan/Problems-Billing Assessment: 78yof PMHx CAD, AF, DM, dementia, OA who presents with lethargy and fevers who was found to have a gangrenous gallbladder during cholecystectomy who is now improving well. Patient also had diarrhea and possible C. diff. - Patient Problems (1) Shortness of breath Current Visit: Yes Status: Acute Code(s): R06.02 - SHORTNESS OF BREATH SNOMED Code(s): 376237239 Comment: - Developed SOB with CXR with large pleural effusion of Right Lung, CT shows Large Pleural Effusion on Right side. Appreciate Surgery doing Diagnostic and therapeutic Thoracentesis. - Patient is improving well today. - Concern for Hospital Acquired Pneumonia with possible Parapneumonic Effusion, however, given clinical course, will narrow antibiotics. - Also possibly Transudative with signs of fluid overload. Patient has gained over 10lb since admission despite very poor oral intake. Stop fluids and trial Lasix - Echo shows normal EF with possibility of predisposition to HFpEF. - Fluid analysis pending to determine etiology of effusion, will be 2-3 days, will treat both fluid overload and Pneumonia, will deescalate treatment and assess for clinical worsening. (2) S/P cholecystectomy Current Visit: Yes Status: Acute Code(s): Z90.49 - ACQUIRED ABSENCE OF OTHER SPECIFIED PARTS OF DIGESTIVE TRACT SNOMED Code(s): 780759975 Comment: - POD #5 GB was perforated and gangrene; ANDREW drain to be removed tomorrow - doing well post-op. - Appreciate GI consult- ERCP by Dr. Purvis 08/29 - Surgery following - Start Augmentin (3) SHERRY (acute kidney injury) Current Visit: Yes Status: Acute Code(s): N17.9 - ACUTE KIDNEY FAILURE, UNSPECIFIED SNOMED Code(s): 83489631 Comment: - Resolved, Cret Stable. (4) Diarrhea Current Visit: Yes Status: Acute Code(s): R19.7 - DIARRHEA, UNSPECIFIED SNOMED Code(s): 11302283 Comment: - CDIFF positive ?? colonization - no diarrhea prior to hospitalization. - Started on Oral Vanco 08/27, treat in accordance with first episode due to ? increased pathogenicity strain and concurrent antibiotics. (5) Lethargy Current Visit: Yes Status: Acute Code(s): R53.83 - OTHER FATIGUE SNOMED Code(s): 114614328 Comment: - Suspected secondary to toxic encephalopathy; Fluctuating course. - Prior to hospital she was walking with walker or assist on Tuesday and currently needs justino - Will need SANTOS, bed offer for Tuesday - Continue PT/OT in house. - Greatly improved today. (6) Urinary tract infection Current Visit: Yes Status: Acute Comment: - 1st UA had negative culture. Repeat UA grew Ecoli. - Adequately treated with zosyn. (7) Atrial fibrillation Current Visit: Yes Status: Chronic Code(s): I48.91 - UNSPECIFIED ATRIAL FIBRILLATION SNOMED Code(s): 35976894 Comment: - Continue Nebivolol - Home Eliquis - Rate Controlled (8) CAD (coronary artery disease) Current Visit: Yes Status: Chronic Code(s): I25.10 - ATHSCL HEART DISEASE OF [place] CORONARY ARTERY W/O ANG PCTRS SNOMED Code(s): 36244020 Comment: - asymptomatic - Continue Lipitor, Nebivolol - Echo shows normal EF - Resume Aspirin (9) Dementia Current Visit: Yes Status: Chronic Code(s): F03.90 - UNSPECIFIED DEMENTIA WITHOUT BEHAVIORAL DISTURBANCE SNOMED Code(s): 28235232 Comment: - Dementia at baseline (10) DVT prophylaxis Current Visit: Yes Status: Chronic Code(s): ULS0352 - SNOMED Code(s): 754991390 Comment: - Resume Eliquis Status and Disposition: Inpatient. Will need SANTOS at D/C. Hopeful discharge tomorrow.
[2018-09-04] MEDS ORDERED: Potassium Chloride* LIQUID 20 MEQ/15 ML UDC PO ONE (14:00)
[2018-09-04] MEDS: Amoxicillin/Clavulanate TAB* 875 MG PO SCH (21:45)
[2018-09-05] MEDS: Acetaminophen TAB* 325 MG PO PRN ×2 (07:11→13:24)
[2018-09-05 07:57] VITALS: BP 123/57
[2018-09-05] MEDS: Aspirin EC TAB* 81 MG TAB.EC PO SCH (09:47)
[2018-09-05] MEDS: Amoxicillin/Clavulanate TAB* 875 MG PO SCH (09:47)
[2018-09-05] MEDS: Apixaban* 5 MG TAB PO SCH (09:48)
[2018-09-05] MEDS: VANCOMYCIN PO SOLN* 125 MG/5ML 25 MG/ML PO SCH ×2 (09:48→13:24)
[2018-09-05] MEDS: CMC:Nebivolol TAB (NF) 2.5 MG TAB PO SCH (09:48)
[2018-09-05] MEDS: Lactobacillus Acidophilus* 1 TAB PO SCH (09:48)
[2018-09-05] MEDS: Nystatin TOP POWDER* 15 GM BTL TOPICAL SCH (10:36)
[2018-09-05] MEDS ORDERED: Vancomycin Trough Check NOTE FOLLOW UP ONE (11:30)
[2018-09-05 12:02] LABS: ABS Eosinophils 0.3 10^3/ul (0-0.6); ABS Lymphocytes 0.8 10^3/ul (1.0-4.8); ABS Monocytes 0.4 10^3/ul (0-0.8); ABS Neutrophils 12.2 10^3/ul (1.5-7.7); Eosinophil % 1.9 %; Hematocrit 30 % (35-47); Hemoglobin 9.8 g/dL (12.0-16.0); Lymphocyte % 5.9 %; Mean Corpuscular HGB Conc 33 g/dL (31-36); Mean Corpuscular Hemoglobin 29 pg (27-31); Mean Corpuscular Volume 88 fL (80-97); Mean Platelet Volume 9.6 fL (7.4-10.4); Platelet Count 321 10^3/uL (150-450); Red Blood Count 3.43 10^6 /uL (3.70-4.87); Red Cell Distribution Width 17 % (10.5-15); White Blood Count 13.7 10^3/uL (3.5-10.8)
[2018-09-05 12:13] LABS: BUN/Creatinine Ratio 16.8 (8-20); Calcium 7.9 mg/dL (8.6-10.3); EGFR African American 68.7 (>60); EGFR Non-African American 56.7 (>60); Potassium 3.5 mmol/L (3.5-5.0)
--- NOTE | 2018-09-05 15:17 | DS ---
CC: Dr. Garza; Shaka Dela Cruz MD* DISCHARGE SUMMARY: DATE OF ADMISSION: 08/25/18 DATE OF DISCHARGE: 09/05/18 PRIMARY CARE PROVIDER: Dr. Garza. MY ATTENDING WHILE IN THE HOSPITAL: Dr. Borges* (dictated by BUBBA Connolly). SURGEON: Shaka Dela Cruz MD. PRIMARY DISCHARGE DIAGNOSES: 1. Severe gangrenous cholecystitis with fluid overload. 2. Pleural effusion, unknown etiology, possible hospital acquired pneumonia. 3. Urinary tract infection. 4. C. diff. 5. Acute on chronic kidney injury, resolved. SECONDARY DIAGNOSES: 1. Dementia. 2. Diet controlled diabetes. 3. Coronary artery disease, status post bypass grafting. 4. Chronic atrial fibrillation, on anticoagulation. 5. Osteoarthritis. STUDIES DONE WHILE IN THE HOSPITAL: Brain CT from 08/25/18 read as no acute abnormality, age related atrophy and chronic small vessel ischemic disease. Chest x-ray from 08/25/18 read as low lung volumes. Abdomen ultrasound on 08/25/18 read as sludge in the gallbladder, thickened gallbladder wall noted. No definite biliary duct dilatation. Remainder of the exam is somewhat limited. Renal ultrasound from 08/26/18 read as no hydronephrosis, echogenic kidneys. No significant chronic renal disease. Abdomen and pelvis CT from 08/27/18 read as gallbladder is distended, cholecystic fluid was noticed. Gallstone noted. Common bile duct is measured to 10 mm that suggest high-density material and distal common duct and at common duct stone is not excluded, may be slightly prominent intrahepatic duct. MRCP read as intra and extrahepatic biliary dilatation and choledocholithiasis, probable acute cholecystitis. Chest x-ray from 08/31/18 read as density in right lower lung morphologically most consistent with a large pleural effusion with creating compressive consolidation involving more superior lung. Transthoracic echocardiogram from 09/01/18 read as, ventral cavity size is mildly reduced, wall thickness is [id number] increased. Systolic function is normal, estimated ejection fraction 55% to 60%, akinesis in the inferior base most consistent with Doppler evidence of chronic significant diastolic dysfunction, trace mitral regurgitation, mild aortic stenosis, trace regurgitation, mild pulmonary hypertension, ascending aorta mildly dilated. Chest CT read as bilateral, layering pleural effusions, large on the right and small on the left, complete right lower lobe collapse, mild atelectatic change. A small focus of intraperitoneal air noted in right upper quadrant, status post surgical drain placed. Chest x-ray from 09/02/18, read as reduced right pleural effusion, post thoracentesis. Negative for pneumothorax, mild pulmonary vascular congestion and interstitial edema. Chest x-ray from 09/04/18, read as small right pleural effusion with right basilar atelectasis with some consolidation, pulmonary vascular congestion, compared to similar previous examination. MEDICATIONS AT DISCHARGE: 1. Nebivolol 5 mg p.o. daily. 2. Lipitor 20 mg p.o. 3. Aspirin 81 mg p.o. daily. 4. Eliquis 5 mg p.o. b.i.d. 5. Tylenol 650 mg p.o. q.4 hours as needed. 6. Augmentin 875 mg p.o. b.i.d. x10 tabs. 7. Lactobacillus acidophilus 1 tab p.o. daily. 8. Nystatin 1 application topical b.i.d. 9. Torsemide 10 mg p.o. daily. 10. Percocet 5/325 one tab p.o. q. 6 hours as needed. 12. Vancomycin cap 125 mg p.o. q.i.d. for 10 more days. HOSPITAL COURSE: This is a brief summary of the patient's presentation. For more details, please see the history and physical from Dr. Karine Wheeler on . In brief, the patient is a 78-year-old female with past medical history significant for the above who presented to the emergency department after having several nights of restlessness and inability to sleep. The patient was encouraged by her to take trazodone; she took trazodone and then slept for 18 hours. The patient does believe that her symptoms were just due to dehydration. Upon presentation, however, patient then had very high fevers up to 104 degrees Fahrenheit. The patient was started on ceftriaxone for a urinary tract infection. The patient then developed diarrhea, and had positive C. diff test and started on oral vancomycin. The patient had studies of her gallbladder as above, which showed choledocholithiasis and concern for cholecystitis. The patient was switched to Zosyn. The patient had an MRCP with Dr. Martin Purvis to remove the common bile duct stone, which was successful. The patient had negative blood cultures. The patient was from the beginning of her hospitalization was very encephalopathic and was seen in consultation by Dr. Pete Lazo of General Surgery and the plan was made after her ERCP for her to have acute cholecystectomy. The patient initially had no white blood cell count. The patient never had hypotension. The patient have very poor oral intake and was largely bedbound throughout the beginning of her hospitalization. The patient received fluids throughout her hospitalization being over 10 L worth and gained over 10 pounds throughout her hospitalization. The patient underwent a successful cholecystectomy on . The patient improved greatly in the immediate postoperative setting; however, then became again encephalopathic, had a slight temperature elevation at 100.4 and some shortness of breath and unable to wean oxygen. Postoperatively, the patient had chest x-ray showed large pleural effusion. This was confirmed by a chest CT and a thoracentesis was performed. The patient postoperatively developed white blood cell count which peaked on to 15,000 and was trending down. The patient had elevated creatinine which also trended down to her baseline. The patient's studies on her pleural fluid are pending. Her fluid showed 2074 white blood cell counts is abnormal but is not diagnostic for infection. The patient will be started on vancomycin, cefepime, and Flagyl. The patient improved greatly and so was able to be narrowed to Augmentin for both intraabdominal and her respiratory infection on 08/28/18. The patient had no other respiratory illness besides hypoxia and tachypnea. The patient had no further fevers or chills, no tachycardia. The patient was stable and was discharged to rehab on 08/28/18. Patient was clinically fluid overloaded during her admission and was diuresed and currently with antibiotic treatment which actually showed improvement in her physical or outward signs of fluid overload. PHYSICAL EXAMINATION ON THE DAY OF DISCHARGE: General: The patient is a 78- year- old female who appears stated age and sitting comfortably in the bed, in no acute distress. Vital Signs: At the time of evaluation, temperature 98.5, pulse rate 78, respiratory rate 20, oxygen saturation 97% on room air, blood pressure 123/57. HEENT: Head: Normocephalic, atraumatic. Sclerae anicteric. No conjunctival injection. Nasal mucosa moist. No pharyngeal erythema, discharge, or exudate. Neck: Supple, nontender. No lymphadenopathy. No carotid bruits auscultated. No JVD. Cardiac: Tachycardiac. No clicks, murmurs, gallops or rubs. Pulses 2+ in the bilateral dorsalis pedis, posterior tibialis, and radial areas, 1+ lower extremity edema noted. Respiratory: Clear to auscultation bilaterally. No wheezes, rales or rhonchi. Good air exchange bilaterally. Abdomen: Soft, nontender, nondistended. Well healing surgical wounds. ANDREW drains placed, draining serosanguineous drainage. Normoactive bowel sounds present in all 4 quadrants. Genitourinary: Killian catheter in place draining clear yellow urine. No suprapubic or CVA tenderness. Skin: Rashes on the intertriginous areas, skin breakdown in the buttocks and in the groin. No significant rashes. Neuro: Cranial nerves II through XII intact. No deficits. Oriented only to self. DISCHARGE PLAN: The patient was discharged to [facility] for physical therapy and occupational therapy. She is moderately dehydrated with the goal of her returning home with her previous functional status of using a walker. The patient still has laboratory data pending to distinguish her pleural fluid being transudative or exudative. The patient is being concurrently treated for both of these options. The patient is fluid overloaded and will be treated with torsemide for 14 more days. If patient appears overly dehydrated during this time this should be stopped. The patient should also have a followup BMP within 1-week for assessment of her kidney function; her creatinine baseline is around 1. The patient should have followup chest x-ray in 2 weeks. If her pleural effusion is getting worse and consideration for repeat thoracentesis should be given or further diuresis if the patient shows early signs of fluid overload. The patient was diagnosed with Clostridium difficile while in the hospital and was treated with vancomycin which improved greatly. The patient still has intermittent diarrhea this is improving. The patient should be continued on 10 more days of vancomycin, 125 mg p.o. four times a daily. The patient also to continue on probiotic. The patient's pain control with her home Percocet. The patient has Nystatin powder for her intertriginous fungal infection and will be resumed on her Eliquis and aspirin for her coronary artery disease and atrial fibrillation. Patient will have a killian catheter to promote wound healing. The patient should return to the hospital for severe shortness of breath, high fevers, and intractable abdominal pain, passing out, or alarming symptoms. The patient should have a heart healthy diet, consistent carbohydrate, caffeine okay , and should engage in activity as tolerated. TIME SPENT: Approximately 60 minutes was spent on this patient, 30 of which was spent [id number] with the patient obtaining history and physial and discussing treatment and plan. BUBBA CONNOLLY [id number]/[facility] #: [id number] LINDA
[2018-09-06] MEDS ORDERED: Torsemide TAB* 20 MG PO SCH (09:00)
[2018-09-06 19:36] LABS: Lactate Dehydrogenase, BF 406 U/L
== END 2018-09-05 15:20 | DRG 853 ==
LOC: ED 00:42 → SSU 04:03 → OBSVTOIN 08-26 12:03 → SSU 08-30 18:14
PROVIDERS: ADMIT Internal Medicine; ATTEND Internal Medicine
PROC: 0FT44ZZ Resection of Gallbladder, Percutaneous Endoscopic Approach (ICD-10-PCS; principal; 2018-08-26)
PROC: 0F798ZZ Dilation of Common Bile Duct, Via Natural or Artificial Opening Endoscopic (ICD-10-PCS; 2018-08-26)
PROC: BF10YZZ Fluoroscopy of Bile Ducts using Other Contrast (ICD-10-PCS; 2018-08-26)
DX: A41.9 Sepsis, unspecified organism (principal); J18.9 Pneumonia, unspecified organism; G92 Toxic encephalopathy; K80.42 Calculus of bile duct with acute cholecystitis without obstruction; J90 Pleural effusion, not elsewhere classified; N39.0 Urinary tract infection, site not specified; N17.9 Acute kidney failure, unspecified; K82.A2 Perforation of gallbladder in cholecystitis; A04.72 Enterocolitis due to Clostridium difficile, not specified as recurrent; K82.A1 Gangrene of gallbladder in cholecystitis; N18.9 Chronic kidney disease, unspecified; F03.90 Unspecified dementia, unspecified severity, without behavioral disturbance, psychotic disturbance, mood disturbance, and anxiety; E11.22 Type 2 diabetes mellitus with diabetic chronic kidney disease; I48.2 Chronic atrial fibrillation; M19.91 Primary osteoarthritis, unspecified site; I08.0 Rheumatic disorders of both mitral and aortic valves; I27.20 Pulmonary hypertension, unspecified; R09.02 Hypoxemia; E86.0 Dehydration; G20 Parkinson's disease; G47.00 Insomnia, unspecified; B96.20 Unspecified Escherichia coli [E. coli] as the cause of diseases classified elsewhere; G89.29 Other chronic pain; I25.10 Atherosclerotic heart disease of native coronary artery without angina pectoris; Y95 Nosocomial condition; Z79.82 Long term (current) use of aspirin; Z79.01 Long term (current) use of anticoagulants; Z88.2 Allergy status to sulfonamides; Z95.1 Presence of aortocoronary bypass graft; Z83.3 Family history of diabetes mellitus; Z82.49 Family history of ischemic heart disease and other diseases of the circulatory system
CPT/HCPCS: 36415; 70450; 71045; 71250; 74177; 74181; 74328; 76376; 76705; 76775; 80048; 80053; 80076; 80202; 81003; 81015; 82150; 82247; 82248; 82550; 82945; 83036; 83605; 83615; 83690; 83735; 83986; 84157; 85025; 85049; 85610; 85730; 86140; 86850; 86900; 86901; 87040; 87045; 87046; 87077; 87086; 87177; 87186; 87205; 87209; 87328; 87329; 87493; 87899; 88304; 89051; 93005; 93306; 99284; A9270-GY; C1769; G8978-GP-CM; G8978-GP-CN; G8979-GP-CJ; G8979-GP-CL; J0171; J0330; J0692; J0696; J1940; J2405; J2543; J2704; J2710; J3010; J3370; J3475; J3480; J3490; Q9967

== ENCOUNTER 2018-09-17 14:02 | Inpatient (IN) | payer MEDICARE, MEDICAID ==
--- NOTE | 2018-09-17 14:36 | ED ---
Altered Mental Status - HPI Summary HPI Summary: LEVEL 5 CAVEAT: COMPLETE HPI UNABLE TO BE OBTAINED DUE TO PATIENT ALTERED MENTAL STATUS. This patient is a 78 year old F brought to ED via EMS with a chief complaint of unresponsiveness since two days ago per EMS. Patient has been having declining mental status in the last several weeks. She is lethargic and has decreased PO. In the room patient was placed on 2L NC. Per , patient has been running a fever and had her gallbladder taken out two weeks ago. She has black tarry stools. Husbands permits giving the patient antibiotics and fluids. - History Of Current Complaint Chief Complaint: EDAltMentalStatus Stated Complaint: SEMI RESP. 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 - , EMS Onset/Duration: Still Present Timing: Lasting Weeks Character: Lethargy Associated Signs And Symptoms: Positive: Fever - Allergies/Home Medications Allergies/Adverse Reactions: Allergies Allergy/AdvReac Type Severity Reaction Status Date / Time Sulfa (Sulfonamide Allergy Unknown Verified 09/17/18 14:16 Antibiotics) Reaction Details PMH/Surg Hx/FS Hx/Imm Hx Previously Healthy: No - LEVEL 5 CAVEAT: COMPLETE PMH UNABLE TO BE OBTAINED DUE TO PATIENT AMS Endocrine/Hematology History: Reports: Hx Diabetes - Diet and oral meds Cardiovascular History: Reports: Hx Atrial Fibrillation, Hx Coronary Artery Disease, Other Cardiovascular Problems/Disorders - CABG, CAD, possible Afib in past, SVT Denies: Hx Hypertension, Hx Pacemaker/ICD History: Denies: Hx Renal Disease Musculoskeletal History: Reports: Other Musculoskeletal History - wrist sx for fracture repair Sensory History: Reports: Hx Contacts or Glasses - glasses not with patient Denies: Hx Hearing Aid Opthamlomology History: Reports: Hx Contacts or Glasses - glasses not with patient Neurological History: Reports: Hx Dementia Psychiatric History: Denies: Hx Panic Disorder - Surgical History Surgery Procedure, Year, and Place: Fractured Wrist repair,open heart no stents, hand Infectious Disease History: No Infectious Disease History: Denies: Traveled Outside the [place] in Last 30 Days - Family History Known Family History: Positive: Diabetes Negative: Cardiac Disease - Social History Alcohol Use: None Hx Substance Use: No Substance Use Type: Reports: None Substance Use Comment - Amount & Last Used: prescription Hx Tobacco Use: No Smoking Status (MU): Never Smoked Tobacco Review of Systems - ROS Summary Review of Systems Summary: LEVEL 5 CAVEAT: COMPLETE ROS UNABLE TO BE OBTAINED DUE TO PATIENT AMS Positive: Fever Gastrointestinal: Other - Black tarry stools Neurological: Other - Lethargic, unresponsive All Other Systems Reviewed And Are Negative: Yes Physical Exam - Summary Physical Exam Summary: LEVEL 5 CAVEAT: COMPLETE PHYSICAL EXAM UNABLE TO BE OBTAINED DUE TO PATIENT AMS VITAL SIGNS: Reviewed. GENERAL: Patient is an ill-looking female, very dehydrated, in NC 2L O2 HEAD AND FACE: No signs of trauma. No ecchymosis, hematomas or skull depressions. No sinus tenderness. EYES: PERRLA, EOMI x 2, No injected conjunctiva, no nystagmus. EARS: Hearing grossly intact. Ear canals and tympanic membranes are within normal limits. MOUTH: Dry oral mucosa NECK: Supple, trachea is midline, no adenopathy, no JVD, no carotid bruit, no c- spine tenderness, neck with full ROM. CHEST: Symmetric, no tenderness at palpation LUNGS: Clear to auscultation bilaterally. No wheezing or crackles. CVS: Regular rate and rhythm, S1 and S2 present, no murmurs or gallops appreciated. ABDOMEN: Healing surgical incisions in abdomen after laparoscopic cholecystectomy, black tarry stools, erythema in vulva, indwelling Roberts catheter in place EXTREMITIES: FROM in all major joints, no edema, no cyanosis or clubbing. NEURO: Lethargic, obtunded SKIN: Dry and warm. Triage Information Reviewed: Yes Vital Signs On Initial Exam: Initial Vitals Temp Pulse Resp BP Pulse Ox 99 F 90 24 121/58 92 09/17/18 14:10 09/17/18 14:10 09/17/18 14:10 09/17/18 14:10 09/17/18 14:10 Vital Signs Reviewed: Yes Diagnostics - Vital Signs Vital Signs Temp Pulse Resp BP Pulse Ox 09/17/18 14:10 99 F 90 24 121/58 92 - Laboratory Result Diagrams: 09/18/18 05:29 09/18/18 05:29 Lab Statement: Any lab studies that have been ordered have been reviewed, and results considered in the medical decision making process. - Radiology CXR Radiology Interpretation Completed By: Radiologist Summary of Radiographic Findings: Chronic findings as described above include persistent elevation of the right hemidiaphragm and density at the right lung base that is most consistent with atelectasis. Dr. Murphy has reviewed this radiology report. - EKG 1444 Cardiac Rate: NL - 78 BPM EKG Rhythm: Sinus Rhythm EKG Comparison: No Significant Change - Similar to EKG taken 08/25/18. Summary of EKG Findings: NSR at 78 BPM, no ST Elevations. T wave depression in V2, V3, V4, V5. Similar to EKG taken 08/25/18. Altered Mental Statu Course/Dx - Course Assessment/Plan: This patient is a 78 year old F brought to ED via EMS with a chief complaint of unresponsiveness since two days ago per EMS. Patient has been having declining mental status in the last several weeks. She is lethargic and has decreased PO. In the room patient was placed on 2L NC. Per , patient has been running a fever and had her gallbladder taken out two weeks ago. She has black tarry stools. Husbands permits giving the patient antibiotics and fluids. Past medical history significant for. 1- Opiate overdose. 2- SVT. 3- Atrial fibrillation on Eliquis. 4- Diabetes mellitus. 5 - SIRS. 6- UTIs. 7- Acute kidney injury. 8- Diarrhea. 9- Shortness of breath. 10- S/P cholecystectomy. Initially I placed the patient with an IV access, and the personnel monitor, and we started IV fluids. Patients at bedside reports that the patient doesnt want any blood transfusions, she will take antibiotics for infections, she will not do any intubations or CPR. Blood test results shows a hemoglobin 9.6, hematocrit 30, sodium 151, chloride 116, BUNs 46, creatinine 1.57, total CPK is 302, troponin 0.2, albumin is 2.6. Urinalysis positive for UTI. Patient was started on Rocephin for the UTI. Chest x-ray impression: Chronic findings, persistent to the patient of the right hemidiaphragm and ans density of the right lung base that is most consistent with atelectasis. At this point I discussed my physical exam, findings and test results with Dr. Wheeler from the hospital services who accepted the patient for admission. - Diagnoses Provider Diagnoses: GI bleed, Dehydration, Renal failure, Elevated troponin - Provider Notifications Discussed Care Of Patient With: Karine Wheeler Time Discussed With Above Provider: 17:04 Instructed by Provider To: Admit As Inpatient - Discussed patient case with Dr. Wheeler, hospitalist, who accepted the patient for admission to [facility] [place]. - Critical Care Time Critical Care Time: 30-74 min - 30 min Discharge - Sign-Out/Discharge Documenting (check all that apply): Patient Departure - Admit Patient Received Moderate/Deep Sedation with Procedure: No - Discharge Plan Condition: Fair Disposition: ADMITTED TO [facility] - Billing Disposition and Condition Condition: FAIR Disposition: Admitted to [facility] - Attestation Statements Document Initiated by Scribe: Yes Documenting Scribe: Manish Mclaughlin Provider For Whom Rekha is Documenting (Include Credential): Stephen Murphy MD Scribe Attestation: IManish, scribed for Stephen Murphy MD on 09/18/18 at 1012. Scribe Documentation Reviewed: Yes Provider Attestation: The documentation as recorded by the Manish walls accurately reflects the service I personally performed and the decisions made by me, Stephen Murphy MD Status of Scribe Document: Viewed
[2018-09-17] MEDS ORDERED: NS 0.9% 1000 ML** 1,000 ML IV ONE (14:40)
[2018-09-17 15:54] LABS: ABS Basophils 0.1 10^3/ul (0-0.2); ABS Lymphocytes 1.1 10^3/ul (1.0-4.8); ABS Monocytes 0.6 10^3/ul (0-0.8); ABS Neutrophils 5.7 10^3/ul (1.5-7.7); Eosinophil % 0.6 %; Hematocrit 30 % (35-47); Hemoglobin 9.6 g/dL (12.0-16.0); Lymphocyte % 14.2 %; Mean Corpuscular HGB Conc 32 g/dL (31-36); Mean Corpuscular Hemoglobin 29 pg (27-31); Mean Corpuscular Volume 90 fL (80-97); Mean Platelet Volume 10.6 fL (7.4-10.4); Platelet Count 184 10^3/uL (150-450); Red Cell Distribution Width 17 % (10-15); White Blood Count 7.5 10^3/uL (3.5-10.8)
[2018-09-17 15:59] LABS: Urine Appearance Turbid; Urine Bacteria Absent (Absent); Urine Bilirubin Negative (Negative); Urine Blood 2+ (Negative); Urine Color Amber; Urine Glucose Negative (Negative); Urine Ketones Negative (Negative); Urine Nitrite Negative (Negative); Urine Protein Negative (Negative); Urine Red Blood Cell 2+(6-10/hpf) (Absent); Urine Specific Gravity 1.013 (1.010-1.030); Urine Urobilinogen Negative (Negative); Urine White Blood Cell 3+(>20/hpf) (Absent)
[2018-09-17] MEDS ORDERED: cefTRIAXone(*) 1 GM in NS 0.9% 50 ML* 50 ML IVPB ONE (16:02)
[2018-09-17 16:11] LABS: ALT 21 U/L (7-52); AST 38 U/L (13-39); Albumin 2.6 g/dL (3.2-5.2); Albumin/Globulin Ratio 0.7 (1-3); Alkaline Phosphatase 63 U/L (34-104); BUN/Creatinine Ratio 29.3 (8-20); Blood Urea Nitrogen 46 mg/dL (6-24); CO2 Carbon Dioxide 27 mmol/L (22-32); Calcium 8.7 mg/dL (8.6-10.3); Creatine Kinase 302 U/L (10-223); EGFR African American 38.5 (>60); EGFR Non-African American 31.8 (>60); Glucose 96 mg/dL (70-100); Magnesium 2.3 mg/dL (1.9-2.7); Potassium 4.4 mmol/L (3.5-5.0); Total Protein 6.6 g/dL (6.4-8.9)
[2018-09-17 16:12] LABS: Anion Gap 8 mmol/L (2-11); Chloride 116 mmol/L (101-111); Sodium 151 mmol/L (135-145)
[2018-09-17 16:31] LABS: TSH (Thyroid Stimulating Horm) 0.45 mcIU/mL (0.34-5.60)
[2018-09-17] MEDS ORDERED: NS 0.9% 1000 ML** 1,000 ML IV SCH ×2 (18:00→22:40)
[2018-09-17] MEDS ORDERED: oxyCODONE/Acetamin 5/325 MG* TAB PO PRN (18:02)
--- NOTE | 2018-09-17 19:31 | HP ---
CC: Sohail Marshall * HISTORY AND PHYSICAL: DATE OF ADMISSION: 09/17/18 PRIMARY CARE PROVIDER: Dr. Greg Sauceda. ATTENDING PHYSICIAN: Dr. Wheeler. CHIEF COMPLAINT: Altered mental status. HISTORY OF PRESENT ILLNESS: Ms. Vo is a 78-year-old female with a past medical history significant for dementia, CAD, diabetes, atrial fibrillation, recent gangrenous cholecystitis; who presented to the emergency department today from [place] where she has been residing since 09/05/18 with complaints of unresponsive x2 days. Per the ED report, the patient has been declining in mentation over the past several weeks, but today she is lethargic and is not taking p.o. On arrival to the emergency room, the patient was noted to require 2 L nasal cannula to maintain oxygen saturation, in addition she was noted to be minimally responsive. The patient had lab work, which revealed normocytic anemia with a hemoglobin of 9.6 and hematocrit of 30. She also had a BMP, which revealed hypernatremia at 151 and SHERRY with a creatinine of 1.57. In addition, the patient noted to have a troponin of 0.20. The patient had further evaluation which revealed a positive stool guaiac and a chest x-ray which revealed density at the right lung base most consistent with atelectasis. Finally, the patient had a UA, which was positive for blood, leukocyte esterase, wbc's, rbc's, and yeast. Given these findings, the hospitalists were asked to evaluate for admission. PAST MEDICAL HISTORY: 1. Dementia. 2. CAD, status post coronary artery bypass grafting. 3. Diabetes, diet-controlled. 4. History of atrial fibrillation, on Eliquis. 5. History of wrist fracture and repair. 6. History of osteoarthritis in both legs. 7. Recent sepsis with severe gangrenous cholecystitis and fluid overload. 8. Recent pleural effusion. 9. Recent C. difficile. PAST SURGICAL HISTORY: 1. Cholecystectomy. 2. Coronary artery bypass grafting. ALLERGIES: SULFA. FAMILY HISTORY: The patient's father had heart disease. SOCIAL HISTORY: The patient has a history of dementia. She was previously living with her who was the hand picker, but recently was placed in [place] for rehabilitation. Prior to her most recent admission, the patient was ambulating at baseline with a rolling walker. The patient has no significant alcohol, tobacco, or drug use. The patient's will be her surrogate and healthcare proxy. REVIEW OF SYSTEMS: Unobtainable from the patient who is very lethargic. PHYSICAL EXAMINATION GENERAL: Ms. Vo is a 78-year-old female, who is lying in bed with her eyes closed. She appears pale. She responds to voice. VITAL SIGNS: Temp 99.4, HR 75, RR 26, O2 saturation 97% on 2 L, BP 90/56. HEENT: PERRLA. Oral mucosa is moist without lesion. Posterior pharynx is clear. NECK: Supple. No lymphadenopathy. RESPIRATORY: Symmetrical chest expansion. No accessory muscle use. Lungs are clear to auscultation. No rhonchi, wheezing, or rales. CARDIAC: S1, S2 present. No murmurs, rubs, or gallops. ABDOMEN: Soft, nontender to palpation. Bowel sounds are normoactive. EXTREMITIES: Skin is warm and smooth bilaterally. The patient has trace to mild edema bilaterally. No clubbing or cyanosis. Pedal pulses 2+ bilaterally. MUSCULOSKELETAL: No pain or deformities. NEURO: The patient is lethargic. She responds to voice. The patient is not answering orientation questions. The patient's strength is equal in her upper extremities, but very weak. SKIN: The patient has bilateral heel darkening. DIAGNOSTIC STUDIES/LAB DATA: WBC 7.5, hemoglobin 9.6, hematocrit 30, platelets 184. Sodium 151, potassium 4.4, chloride 116, carbon dioxide 27, anion gap 8, BUN 46, creatinine 1.57, lactic acid 1.3. Creatine kinase 302. Troponin 0.20. ASSESSMENT AND PLAN: Ms. Vo is a 78-year-old female with a history of dementia, coronary artery disease, diabetes, atrial fibrillation, recent cholecystectomy; who presented to the emergency department today via ambulance after 2 days of altered mental status and lethargy. 1. Altered mental status. It should be mentioned that at the patient's baseline she is demented, but usually can ambulate with a walker and engage in minimal conversation. Currently, she is lethargic, not opening her eyes, but will respond to voice. I suspect her altered mental status and lethargy are multifactorial secondary to her history of dementia, anemia, hypernatremia, dehydration, and failure to thrive. We will provide the patient with supportive care. We will provide the patient with gentle IV fluid hydration. I have discussed the plan of care with the who is a healthcare proxy and we will also discuss comfort measures tomorrow. 2. Anemia. The patient has hemoglobin and hematocrit of 9.6 and 30 respectively. The patient has a positive stool guaiac. Given these findings, I will place the patient on IV Protonix. I will also be holding the patient's Eliquis and aspirin to reduce any further bleeding. I discussed further interventions with the and he agrees with supportive care currently. We will readdress this tomorrow. 3. Hypernatremia. The patient's sodium is 151. I suspect this is secondary to her dehydration given decreased oral intake and an elevated BUN and creatinine. The patient received a liter of normal saline here in the emergency department. I will continue normal saline at 75 mL an hour. I will repeat a BMP at 11 p.m. tonight and have the potato chip frier follow up in order to make sure we are not correcting her sodium too fast. 4. Acute kidney injury. The patient has an elevated creatinine of 1.57. On the patient's discharge on 09/05/18, her creatinine was 1.95. I suspect this is secondary to dehydration, decreased p.o. intake, and diuretics. As mentioned above, we will provide gentle IV fluid hydration. I will hold the patient's diuretics. We will recheck her creatinine tomorrow. 5. Elevated troponin. The patient's troponin is elevated at 0.20. The patient 's EKG is consistent with her previous EKG on 08/25/18, which revealed sinus rhythm with T-wave inversions in V2, V3, V4. I suspect the patient's troponin is elevated from demand ischemia, but could be secondary to an acute coronary syndrome, but once again, I have discussed this with the patient's and how it would be difficult to treat with a blood thinner given her gastrointestinal bleed and her poor prognosis. The patient's states understanding and agrees with proceeding with IV fluids and antibiotics. 6. Urinary tract infection. As mentioned above, the patient's urine was positive for leukocyte esterase and wbc's. The patient was started on ceftriaxone here in the emergency department. I will continue this while awaiting cultures. The patient's is agreeable to antibiotics at this time, but we will discuss comfort measures tomorrow. 7. Dementia. The patient has a history of dementia. Her baseline is that she can converse and walk with a walker, but she is currently lethargic. I discussed the patient's condition and possible poor recovery and her states understanding. We will continue supportive care. 8. Coronary artery disease, status post coronary artery bypass graft. We will hold the patient's aspirin and Eliquis given her gastrointestinal bleed. 9. Diabetes. The patient's diabetes is diet-controlled. We will monitor the patient with repeat BMPs. 10. Atrial fibrillation. The patient is currently in normal sinus rhythm. We will hold the patient's Eliquis given the gastrointestinal bleed. We will resume the patient's beta-rodney. 11. FEN: The patient will be placed on a regular diet after a nursing swallow eval has been obtained. 12. Code status: The patient is a DNR/DNI and I have updated the patient's MOLST. 13. DVT prophylaxis: Based on the DVT Risk Assessment, the patient is high risk. Given the patient's gastrointestinal bleed and anemia, I will hold off on chemical prophylaxis and order SCDs. TIME SPENT: Approximately 65 minutes was spent on this admission, greater than half the time was spent with the patient and discussing over the phone with the obtaining my history, performing my physical exam, and reviewing plan of care. The case has been reviewed with my attending, Dr. Wheeler, who is in agreement with my plan of care. ANURADHA SIU, PAULETTE [id number]/[facility] #: [id number] LINDA
[2018-09-17] MEDS: Vancomycin CAP* 125 MG CAP PO SCH (20:12)
[2018-09-17] MEDS: Nystatin TOP POWDER* 15 GM BTL TOPICAL SCH (20:13)
[2018-09-17] MEDS: Pantoprazole IV* 40 MG IV SCH (21:01)
[2018-09-18 00:23] LABS: CO2 Carbon Dioxide 17 mmol/L (22-32); Calcium 9.1 mg/dL (8.6-10.3)
[2018-09-18 00:29] LABS: BUN/Creatinine Ratio 40.7 (8-20); Blood Urea Nitrogen 57 mg/dL (6-24); EGFR African American 43.9 (>60); EGFR Non-African American 36.3 (>60); Glucose 90 mg/dL (70-100)
[2018-09-18 00:37] LABS: Anion Gap 14 mmol/L (2-11); Chloride 124 mmol/L (101-111); Sodium 155 mmol/L (135-145)
--- NOTE | 2018-09-18 01:27 | PN ---
Progress Note - Progress Note Date of Service: 09/18/18 Note: Repeat BMP rising sodium. Will change NS to D5 1/2 NS @ 75 cc/hr. Repeat BMP in AM
[2018-09-18] MEDS ORDERED: D5W 1/2 NS 1000 ML BAG* 1,000 ML IV SCH (02:00)
[2018-09-18 05:48] LABS: ABS Eosinophils 0.2 10^3/ul (0-0.6); ABS Lymphocytes 0.9 10^3/ul (1.0-4.8); ABS Monocytes 0.4 10^3/ul (0-0.8); ABS Neutrophils 3.8 10^3/ul (1.5-7.7); Eosinophil % 4.6 %; Hematocrit 26 % (35-47); Hemoglobin 8.3 g/dL (12.0-16.0); Lymphocyte % 16.4 %; Mean Corpuscular HGB Conc 32 g/dL (31-36); Mean Corpuscular Hemoglobin 29 pg (27-31); Mean Corpuscular Volume 90 fL (80-97); Mean Platelet Volume 10.4 fL (7.4-10.4); Platelet Count 134 10^3/uL (150-450); Red Cell Distribution Width 17 % (10-15); White Blood Count 5.3 10^3/uL (3.5-10.8)
[2018-09-18 06:15] LABS: BUN/Creatinine Ratio 33.1 (8-20); Calcium 8.2 mg/dL (8.6-10.3); EGFR African American 53.5 (>60); EGFR Non-African American 44.2 (>60); Potassium 3.8 mmol/L (3.5-5.0)
[2018-09-18 07:58] LABS: Troponin I 0.1 ng/mL (<0.04)
[2018-09-18] MEDS: Vancomycin CAP* 125 MG CAP PO SCH ×5 (08:18→21:05)
[2018-09-18] MEDS: CMC:Nebivolol TAB (NF) 2.5 MG TAB PO SCH (08:23)
[2018-09-18] MEDS: Pantoprazole IV* 40 MG IV SCH (08:26)
[2018-09-18] MEDS: Lactobacillus Acidophilus* 1 TAB PO SCH (08:31)
[2018-09-18] MEDS: Nystatin TOP POWDER* 15 GM BTL TOPICAL SCH ×2 (08:39→21:13)
--- NOTE | 2018-09-18 08:50 | PN ---
Subjective Date of Service: 09/18/18 Interval History: Pt is more awake today, able to take PO meds with apple sauce. C/o no pain Seen with her by the bedside Objective Active Medications: Atorvastatin Calcium (Lipitor*) 20 mg PO DAILY [facility] Last Admin: 09/18/18 08:31 Dose: 20 mg Ceftriaxone Sodium 1 gm/ (Sodium Chloride) 50 mls @ 200 mls/hr IVPB Q24H [facility] Dextrose/Sodium Chloride (D5w 1/2 Ns 1000 Ml Bag*) 1,000 mls @ 75 mls/hr IV PER RATE [facility] Last Admin: 09/18/18 01:59 Dose: 75 mls/hr Lactobacillus Rhamnosus (Lactobacillus Acidophilus*) 1 tab PO DAILY [facility] Last Admin: 09/18/18 08:31 Dose: 1 tab Nebivolol (Bystolic Tab (Nf)) 5 mg PO DAILY [facility] Last Admin: 09/18/18 08:23 Dose: 5 mg Nystatin (Nystatin Top Powder*) 1 applic TOPICAL BID [facility] Last Admin: 09/18/18 08:39 Dose: 1 applic Oxycodone/Acetaminophen (Percocet 5/325 Tab*) 1 tab PO Q6H PRN PRN Reason: PAIN Pantoprazole Sodium (Protonix Iv*) 40 mg IV BID [facility] Last Admin: 09/18/18 08:26 Dose: 40 mg Vancomycin HCl (Vancomycin Cap*) 125 mg PO QID [facility] Stop: 09/20/18 20:59 Last Admin: 09/18/18 08:18 Dose: 125 mg Vital Signs - 8 hr 09/18/18 03:05 Temperature 98.2 F Pulse Rate 60 Respiratory 18 Rate Blood Pressure 115/43 (mmHg) O2 Sat by Pulse 98 Oximetry Oxygen Devices in Use Now: None Appearance: 78 yo F in nAD, AAOx1 Eyes: No Scleral Icterus, PERRLA Ears/Nose/Mouth/Throat: NL Teeth, Lips, Gums, Mucous Membranes Moist Neck: NL Appearance and Movements; NL JVP, Trachea Midline Respiratory: Symmetrical Chest Expansion and Respiratory Effort, Clear to Auscultation Cardiovascular: NL Sounds; No Murmurs; No JVD, RRR Abdominal: NL Sounds; No Tenderness; No Distention, No Hepatosplenomegaly Lymphatic: No Cervical Adenopathy Extremities: No Edema, No Clubbing, Cyanosis, - Skin: - - stage 1-2 non open non blanchable decub on sacrum ay 10 cm in diam, R medial thigh-small abrasion at 1-2 cm, R flank ecchymosis at 10x15 cm Neurological: - - generalized weakness, no focal deficit Result Diagrams: 09/18/18 05:29 09/18/18 05:29 Microbiology and Other Data: Microbiology 09/17/18 Unknown Stool Occult Blood (MYRIAM) - Final Stool Assess/Plan/Problems-Billing Assessment: 78yof PMHx CAD, AF, DM, dementia, OA, [place] [facility] [place]ole[place] (lap yue-partial due to GB perforation and gangrene 08/30/18), c.diff dx in 08/2018(still on PO Vanc), U retention with Roberts in place, presents with lethargy , dehydration, clogged Roberts from [facility]. - Patient Problems (1) Urinary tract infection Comment: - cx pending, Roberts was blocked and exchanged in ED - as d/w will cont to tx with IV Ceftriaxone despite comfort care (2) Atrial fibrillation Comment: - Continue Nebivolol (3) Dehydration Comment: with subsequent SHERRY and hypernatremia-reolving with IVF. will stop due to comfort care (4) Troponin I above reference range Comment: likley demand ischemia-resolving, comfort care (5) Melena Comment: Germain bui due to acute upper GI bleed will cont PO PPI and comfort care purreed diet (6) C. difficile diarrhea Comment: h/o a week ago. cont PO Vanc if tolerated. currently pt has loose melena (7) DNR (do not resuscitate) Comment: had a long d/w re: goals of care. Pt has significant dementia and cannot return home. This admission with Acute GI bleed, UTI, lethargy, elevated troponin. wishes no aggresive measures and prefers comfort care. He is cioncerned that the UTI if untreated may cause pt pain and agrees with cont IV antibiotcs and all remaining PO meds if able to swallow. Will d/c IVF He wishes for pt not to return to [facility], will ask palliative care consult to see pt and possibly place in hospice residence (8) DVT prophylaxis Comment: none , comfort care Status and Disposition: inpatient, comfort care
[2018-09-18] MEDS ORDERED: Atorvastatin* 20 MG TAB PO SCH (09:00)
[2018-09-18] MEDS: Morphine ORAL CONCENTRATE* 5 MG/0.25 ML ORAL.SYRIN SL PRN ×3 (12:06→23:28)
--- NOTE | 2018-09-18 12:42 | CONSULT ---
Palliative / Hospice Consult Ordering Provider: Lavinia Mcdonald - PCPMckenzie Referal Reason: hospice information - Subjective Code Status: DNR Advance Directives Location: In Chart MOLST Part A Completed: Yes - on chart discussed with HCP MOLST Part E Completed:: Yes - on chart discussed with HCP - History or Present Illness History or Present Illness: 78yo female with dementia resident of [facility] since 09/05/2018 after hospitalization from 08/26- for cholangitis and c diff who presented to ER with altered mental status for 2 days. Prior to her hospitalization in August she was at home with her as her primary caregiver along with an aide who worked 4 hours per day. She has been declining prior to her last hospitalization. PMH is significant for CAD s/p bypass, DM and afib on eliquis. Studies ekg-nsr, CXR- elevated R hemidiaphragm & density R lung base atelectasis , H/H 8.3/26, BUN/Cr 5/1.18, egfr 44.2, Ca 8.2, tprot 6.6 and alb 2.6. Pt is a non smoker, non drug user no etoh. All history is from pt's and medical records, pt is unable to contribute. Pt was admitted with change in mental status, anemia with heme positive stools, dehydration, demand ischemia and UTI. Lab Values: Abnormal Lab Results 09/17/18 09/17/18 09/17/18 14:46 15:27 15:27 WBC 7.5 RBC 3.30 L Hgb 9.6 L Hct 30 L MCV 90 MCH 29 MCHC 32 RDW 17 H Plt Count 184 MPV 10.6 H Neut % (Auto) 76.2 Lymph % (Auto) 14.2 [place] % (Auto) 8.1 Eos % (Auto) 0.6 Baso % (Auto) 0.9 Absolute Neuts (auto) 5.7 Absolute Lymphs (auto) 1.1 Absolute Monos (auto) 0.6 Absolute Eos (auto) 0.0 Absolute Basos (auto) 0.1 Absolute Nucleated RBC 0.0 Nucleated RBC % 0.0 Sodium 151 H Potassium 4.4 Chloride 116 H Carbon Dioxide 27 Anion Gap 8 BUN 46 H Creatinine 1.57 H Est GFR ( Amer) 38.5 Est GFR (Non-Af Amer) 31.8 BUN/Creatinine Ratio 29.3 H Glucose 96 Lactic Acid Calcium 8.7 Magnesium 2.3 Total Bilirubin 0.60 AST 38 ALT 21 Alkaline Phosphatase 63 Ammonia Total Creatine Kinase 302 H Troponin I 0.20 H* Total Protein 6.6 Albumin 2.6 L Globulin 4.0 Albumin/Globulin Ratio 0.7 L TSH 0.45 Urine Color Lakeisha Urine Appearance Turbid Urine pH 5.0 Ur Specific [place] 1.013 Urine Protein Negative Urine Ketones Negative Urine Blood 2+ A Urine Nitrate Negative Urine Bilirubin Negative Urine Urobilinogen Negative Ur Leukocyte Esterase 3+ A Urine WBC (Auto) 3+(>20/hpf) A Urine RBC (Auto) 2+(6-10/hpf) A Urine Bacteria Absent Urine Yeast Present A Urine Glucose Negative 09/17/18 09/17/18 09/18/18 15:27 15:39 00:00 WBC RBC Hgb Hct MCV MCH MCHC RDW Plt Count MPV Neut % (Auto) Lymph % (Auto) [place] % (Auto) Eos % (Auto) Baso % (Auto) Absolute Neuts (auto) Absolute Lymphs (auto) Absolute Monos (auto) Absolute Eos (auto) Absolute Basos (auto) Absolute Nucleated RBC Nucleated RBC % Sodium 155 H Potassium TNP Chloride 124 H Carbon Dioxide 17 L Anion Gap 14 H BUN 57 H Creatinine 1.40 H Est GFR ( Amer) 43.9 Est GFR (Non-Af Amer) 36.3 BUN/Creatinine Ratio 40.7 H Glucose 90 Lactic Acid 1.3 Calcium 9.1 Magnesium Total Bilirubin AST ALT Alkaline Phosphatase Ammonia 34 Total Creatine Kinase Troponin I Total Protein Albumin Globulin Albumin/Globulin Ratio TSH Urine Color Urine Appearance Urine pH Ur Specific [place] Urine Protein Urine Ketones Urine Blood Urine Nitrate Urine Bilirubin Urine Urobilinogen Ur Leukocyte Esterase Urine WBC (Auto) Urine RBC (Auto) Urine Bacteria Urine Yeast Urine Glucose 09/18/18 09/18/18 05:29 05:29 WBC 5.3 RBC 2.90 L Hgb 8.3 L Hct 26 L MCV 90 MCH 29 MCHC 32 RDW 17 H Plt Count 134 L MPV 10.4 Neut % (Auto) 71.8 Lymph % (Auto) 16.4 [place] % (Auto) 6.7 Eos % (Auto) 4.6 Baso % (Auto) 0.5 Absolute Neuts (auto) 3.8 Absolute Lymphs (auto) 0.9 L Absolute Monos (auto) 0.4 Absolute Eos (auto) 0.2 Absolute Basos (auto) 0.0 Absolute Nucleated RBC 0.0 Nucleated RBC % 0.0 Sodium 152 H Potassium 3.8 Chloride 120 H Carbon Dioxide 27 Anion Gap 5 BUN 39 H Creatinine 1.18 H Est GFR ( Amer) 53.5 Est GFR (Non-Af Amer) 44.2 BUN/Creatinine Ratio 33.1 H Glucose 97 Lactic Acid Calcium 8.2 L Magnesium Total Bilirubin AST ALT Alkaline Phosphatase Ammonia Total Creatine Kinase Troponin I 0.10 H* Total Protein Albumin Globulin Albumin/Globulin Ratio TSH Urine Color Urine Appearance Urine pH Ur Specific [place] Urine Protein Urine Ketones Urine Blood Urine Nitrate Urine Bilirubin Urine Urobilinogen Ur Leukocyte Esterase Urine WBC (Auto) Urine RBC (Auto) Urine Bacteria Urine Yeast Urine Glucose Laboratory Last Values WBC 5.3 10^3/uL (3.5-10.8) 09/18/18 05:29 RBC 2.90 10^6 /uL (3.70-4.87) L 09/18/18 05:29 Hgb 8.3 g/dL (12.0-16.0) L 09/18/18 05:29 Hct 26 % (35-47) L 09/18/18 05:29 MCV 90 fL (80-97) 09/18/18 05:29 MCH 29 pg (27-31) 09/18/18 05:29 MCHC 32 g/dL (31-36) 09/18/18 05:29 RDW 17 % (10-15) H 09/18/18 05:29 Plt Count 134 10^3/uL (150-450) L 09/18/18 05:29 MPV 10.4 fL (7.4-10.4) 09/18/18 05:29 Neut % (Auto) 71.8 % 09/18/18 05:29 Lymph % (Auto) 16.4 % 09/18/18 05:29 [place] % (Auto) 6.7 % 09/18/18 05:29 Eos % (Auto) 4.6 % 09/18/18 05:29 Baso % (Auto) 0.5 % 09/18/18 05:29 Absolute Neuts (auto) 3.8 10^3/ul (1.5-7.7) 09/18/18 05:29 Absolute Lymphs (auto) 0.9 10^3/ul (1.0-4.8) L 09/18/18 05:29 Absolute Monos (auto) 0.4 10^3/ul (0-0.8) 09/18/18 05:29 Absolute Eos (auto) 0.2 10^3/ul (0-0.6) 09/18/18 05:29 Absolute Basos (auto) 0.0 10^3/ul (0-0.2) 09/18/18 05:29 Absolute Nucleated RBC 0.0 10^3/ul 09/18/18 05:29 Nucleated RBC % 0.0 09/18/18 05:29 Sodium 152 mmol/L (135-145) H 09/18/18 05:29 Potassium 3.8 mmol/L (3.5-5.0) 09/18/18 05:29 Chloride 120 mmol/L (101-111) H 09/18/18 05:29 Carbon Dioxide 27 mmol/L (22-32) 09/18/18 05:29 Anion Gap 5 mmol/L (2-11) 09/18/18 05:29 BUN 39 mg/dL (6-24) H 09/18/18 05:29 Creatinine 1.18 mg/dL (0.51-0.95) H 09/18/18 05:29 Est GFR ( Amer) 53.5 (>60) 09/18/18 05:29 Est GFR (Non-Af Amer) 44.2 (>60) 09/18/18 05:29 BUN/Creatinine Ratio 33.1 (8-20) H 09/18/18 05:29 Glucose 97 mg/dL (70-100) 09/18/18 05:29 Lactic Acid 1.3 mmol/L (0.5-2.0) 09/17/18 15:27 Calcium 8.2 mg/dL (8.6-10.3) L 09/18/18 05:29 Magnesium 2.3 mg/dL (1.9-2.7) 09/17/18 15:27 Total Bilirubin 0.60 mg/dL (0.2-1.0) 09/17/18 15:27 AST 38 U/L (13-39) 09/17/18 15:27 ALT 21 U/L (7-52) 09/17/18 15:27 Alkaline Phosphatase 63 U/L (34-104) 09/17/18 15:27 Ammonia 34 mcmol/L (16-53) 09/17/18 15:39 Total Creatine Kinase 302 U/L (10-223) H 09/17/18 15:27 Troponin I 0.10 ng/mL (<0.04) H* 09/18/18 05:29 Total Protein 6.6 g/dL (6.4-8.9) 09/17/18 15:27 Albumin 2.6 g/dL (3.2-5.2) L 09/17/18 15:27 Globulin 4.0 g/dL (2-4) 09/17/18 15:27 Albumin/Globulin Ratio 0.7 (1-3) L 09/17/18 15:27 TSH 0.45 mcIU/mL (0.34-5.60) 09/17/18 15:27 Urine Color Lakeisha 09/17/18 14:46 Urine Appearance Turbid 09/17/18 14:46 Urine pH 5.0 (5-9) 09/17/18 14:46 Ur Specific [place] 1.013 (1.010-1.030) 09/17/18 14:46 Urine Protein Negative (Negative) 09/17/18 14:46 Urine Ketones Negative (Negative) 09/17/18 14:46 Urine Blood 2+ (Negative) A 09/17/18 14:46 Urine Nitrate Negative (Negative) 09/17/18 14:46 Urine Bilirubin Negative (Negative) 09/17/18 14:46 Urine Urobilinogen Negative (Negative) 09/17/18 14:46 Ur Leukocyte Esterase 3+ (Negative) A 09/17/18 14:46 Urine WBC (Auto) 3+(>20/hpf) (Absent) A 09/17/18 14:46 Urine RBC (Auto) 2+(6-10/hpf) (Absent) A 09/17/18 14:46 Urine Bacteria Absent (Absent) 09/17/18 14:46 Urine Yeast Present (Absent) A 09/17/18 14:46 Urine Glucose Negative (Negative) 09/17/18 14:46 - Objective Active Medications: Ceftriaxone Sodium 1 gm/ (Sodium Chloride) 50 mls @ 200 mls/hr IVPB Q24H [facility] Lactobacillus Rhamnosus (Lactobacillus Acidophilus*) 1 tab PO DAILY [facility] Last Admin: 09/18/18 08:31 Dose: 1 tab Morphine Sulfate (Morphine Oral Concentrate*) 5 mg SL Q2H PRN PRN Reason: PAIN Last Admin: 09/18/18 12:06 Dose: 5 mg Nebivolol (Bystolic Tab (Nf)) 5 mg PO DAILY [facility] Last Admin: 09/18/18 08:23 Dose: 5 mg Nystatin (Nystatin Top Powder*) 1 applic TOPICAL BID [facility] Last Admin: 09/18/18 08:39 Dose: 1 applic Oxycodone/Acetaminophen (Percocet 5/325 Tab*) 1 tab PO Q6H PRN PRN Reason: PAIN Pantoprazole Sodium (Protonix Tab*) 40 mg PO BID [facility] Vancomycin HCl (Vancomycin Cap*) 125 mg PO QID [facility] Stop: 09/20/18 20:59 Last Admin: 09/18/18 08:18 Dose: 125 mg Vital Signs: Vital Signs: Temp Pulse Resp BP Pulse Ox 97.2 F 65 17 114/49 97 09/18/18 07:50 09/18/18 07:50 09/18/18 12:06 09/18/18 07:50 09/18/18 07:50 Patient Weight: Weight 80.422 kg Intake and Output: Intake & Output 09/16/18 09/17/18 09/18/18 09/19/18 06:59 06:59 06:59 06:59 Intake Total 1416 0 Output Total 3700 Balance -2284 0 Weight 80.422 kg Intake: IV Fluids 1416 NS (0.9%) 366 Oral 0 0 Output: Roberts 3700 Other: Estimated Void Small Date of Last Bowel 09/17/18 Movement # Bowel Movements 0 Estimated Stool Amount Large # Voids 1 ADLs: Meal Record Start: 09/17/18 18: 21 Freq: DAILY@0900,1400,1800 Status: Active Protocol: Created 09/17/18 18:21 System (Rec: 09/17/18 18:21 System [id number]) Document 09/18/18 09:00 [id number] (Rec: 09/18/18 10:49 [id number] MED-C09) Intake and Output Start: 09/17/18 14: 15 Freq: Status: Active Protocol: Created 09/17/18 14:15 System (Rec: 09/17/18 14:15 System [id number]) Intake and Output Start: 09/17/18 18: 21 Freq: DAILY@0600,1400,2200 Status: Active Protocol: Created 09/17/18 18:21 System (Rec: 09/17/18 18:21 System MED-C12) Document 09/17/18 22:00 [id number] (Rec: 09/17/18 23:46 [id number] MED-C05) Document 09/18/18 06:00 [id number] (Rec: 09/18/18 06:01 [id number] MED-C05) Eyes: No Scleral Icterus, PERRLA Ears/Nose/Mouth/Throat: NL Teeth, Lips, Gums, Mucous Membranes Moist Neck: NL Appearance and Movements; NL JVP, Trachea Midline Cardiovascular: NL Sounds; No Murmurs; No JVD, RRR Abdominal: NL Sounds; No Tenderness; No Distention, No Hepatosplenomegaly Extremities: No Edema, No Clubbing, Cyanosis, - Neurological: - - generalized weakness, no focal deficit - Assessment Assessment: 78yo female with severe dementia UTI, UGI bleed and dehydration interested in pursuing hospice - Plan Consult Plan (MU): Hospice Plan: Spoke with about plans for discharge. MOLST form was completed (it was [facility] at [facility] but had no MD signature) he is requesting DNR/DNI and doesn' t want her to keep coming back to the hospital. Currently he is opting for comfort care but is consenting to treating UTI because he is worried it is causing pain. Pt had been at [facility] after her most recent hospitalization 09/05/2018. was okay with care at [facility] until this recent hospitalization when his had several pressure ulcers so he doesn't want her to go back there. He is interested in the hospice residence and a referral has been sent. If there is no bed he would like to send an application to [facility] with hospice referral. Hospice brochure was given and benefits/ information about hospice. said pt is incontinent of bladder and bowel and doesn't speak in meaningful sentences. Pt is eligible for hospice with diagnosis of severe dementia. is disabled and can no longer care for pt at home. KPS 40%, PPS 30% - Time On Unit Date of Evaluation: 09/18/18 Hospice Consult Time in: 13:00 Hospice Consult Time Out: 14:00 Hospice Consult Time Total: 60 > 50% of Time Spend In Counseling or Coordinating Care: Yes
[2018-09-18] MEDS ORDERED: cefTRIAXone(*) 1 GM in NS 0.9% 50 ML* 50 ML IVPB SCH (17:00)
[2018-09-18] MEDS: Pantoprazole TAB * 40 MG TAB PO SCH (21:05)
[2018-09-19] MEDS: Morphine ORAL CONCENTRATE* 5 MG/0.25 ML ORAL.SYRIN SL PRN ×3 (04:28→14:52)
[2018-09-19] MEDS: Nystatin TOP POWDER* 15 GM BTL TOPICAL SCH ×2 (08:16→21:03)
[2018-09-19] MEDS: CMC:Nebivolol TAB (NF) 2.5 MG TAB PO SCH (08:26)
[2018-09-19] MEDS: Lactobacillus Acidophilus* 1 TAB PO SCH (08:26)
[2018-09-19] MEDS: Vancomycin CAP* 125 MG CAP PO SCH ×4 (08:27→21:02)
[2018-09-19] MEDS: Pantoprazole TAB * 40 MG TAB PO SCH ×2 (08:27→21:02)
--- NOTE | 2018-09-19 10:53 | PN ---
Subjective Date of Service: 09/19/18 Interval History: Pt is lethargic, moaning to voice, but not following commands, eyes closed Objective Active Medications: Ceftriaxone Sodium 1 gm/ (Sodium Chloride) 50 mls @ 200 mls/hr IVPB Q24H [facility] Last Admin: 09/18/18 16:41 Dose: 200 mls/hr Lactobacillus Rhamnosus (Lactobacillus Acidophilus*) 1 tab PO DAILY [facility] Last Admin: 09/19/18 08:26 Dose: Not Given Morphine Sulfate (Morphine Oral Concentrate*) 5 mg SL Q2H PRN PRN Reason: PAIN Last Admin: 09/19/18 08:22 Dose: 5 mg Nebivolol (Bystolic Tab (Nf)) 5 mg PO DAILY [facility] Last Admin: 09/19/18 08:26 Dose: Not Given Nystatin (Nystatin Top Powder*) 1 applic TOPICAL BID [facility] Last Admin: 09/19/18 08:16 Dose: 1 applic Oxycodone/Acetaminophen (Percocet 5/325 Tab*) 1 tab PO Q6H PRN PRN Reason: PAIN Last Admin: 09/18/18 13:05 Dose: 1 tab Pantoprazole Sodium (Protonix Tab*) 40 mg PO BID [facility] Last Admin: 09/19/18 08:27 Dose: Not Given Vancomycin HCl (Vancomycin Cap*) 125 mg PO QID [facility] Stop: 09/20/18 20:59 Last Admin: 09/19/18 08:27 Dose: Not Given Vital Signs - 8 hr 09/19/18 09/19/18 09/19/18 02:50 04:28 07:27 Temperature Pulse Rate Respiratory 16 18 16 Rate Blood Pressure (mmHg) O2 Sat by Pulse Oximetry 09/19/18 09/19/18 09/19/18 07:49 08:22 10:20 Temperature 98.9 F Pulse Rate 70 Respiratory 13 20 14 Rate Blood Pressure 122/49 (mmHg) O2 Sat by Pulse 96 Oximetry Oxygen Devices in Use Now: None Appearance: lethargic, moaning to voice, not following commands Eyes: No Scleral Icterus, PERRLA Ears/Nose/Mouth/Throat: NL Teeth, Lips, Gums, Mucous Membranes Moist Neck: NL Appearance and Movements; NL JVP, Trachea Midline Respiratory: Symmetrical Chest Expansion and Respiratory Effort, Clear to Auscultation Cardiovascular: NL Sounds; No Murmurs; No JVD, RRR Abdominal: NL Sounds; No Tenderness; No Distention Lymphatic: No Cervical Adenopathy Extremities: No Clubbing, Cyanosis, - - trace pedal edema b/l Skin: - - deferred due to comfort care Neurological: - - deferred due to comfort care Result Diagrams: 09/18/18 05:29 09/18/18 05:29 Microbiology and Other Data: Microbiology 09/17/18 Unknown Stool Occult Blood (MYRIAM) - Final Stool Assess/Plan/Problems-Billing Assessment: 78yof PMHx CAD, AF, DM, dementia, OA, [place] [facility] [place]ole[place] (lap yue-partial due to GB perforation and gangrene 08/30/18), c.diff dx in 08/2018(still on PO Vanc), U retention with Roberts in place, presents with lethargy , dehydration, clogged Roberts from [facility]. - Patient Problems (1) Urinary tract infection Comment: - cx pending, Roberts was blocked and exchanged in ED - urine cx +Mar, will stop Ceftriaxone (2) Atrial fibrillation Comment: - Continue Nebivolol (3) Dehydration Comment: with subsequent SHERRY and hypernatremia-reolving with IVF. IVF stopped due to comfort care (4) Troponin I above reference range Comment: ramya demand ischemia-resolving, comfort care (5) Melena Comment: Germain bui due to acute upper GI bleed will cont PO PPI and comfort care pureed diet (6) C. difficile diarrhea Comment: h/o a week ago. cont PO Vanc if tolerated. currently pt has loose melena (7) DNR (do not resuscitate) Comment: cont DNR/DNI/comfort care (8) DVT prophylaxis Comment: none , comfort care Status and Disposition: inpatient, comfort care
--- NOTE | 2018-09-19 23:24 | DS ---
CC: Dr. Garza; Dr. Isabell Ferrer; [facility].* DISCHARGE SUMMARY: DATE OF ADMISSION: 09/17/18 DATE OF ANTICIPATED DISCHARGE: 09/20/18 PRIMARY CARE PROVIDER: Dr. Garza from [place]. DISPOSITION AT DISCHARGE: The patient is going to go to [facility] with hospice referral. The patient is comfort care only with do not resuscitate , do no intubate, and do not hospitalize. CONDITION ON DISCHARGE: Guarded. DISCHARGE DIAGNOSES: 1. Likely upper gastrointestinal bleed in patient with melena. 2. Elevated troponin likely due to demand ischemia. 3. Lethargy. 4. Possibility of maritza urinary tract infection in patient with indwelling Roberts catheter. 5. Severe dehydration. 6. Hypernatremia. 7. Acute kidney injury. MEDICATIONS AT DISCHARGE: Include: 1. Morphine oral concentrate 5 mg sublingually every 2 hours p.r.n. pain. 2. Bystolic 5 mg daily. 3. Nystatin powder applied to affected areas b.i.d. 4. Protonix 40 mg b.i.d. LABORATORY DATA AND STUDIES PERFORMED DURING THE HOSPITAL STAY: Included on 01/27, sodium 152, potassium 3.8, chloride 130, carbon dioxide 27, BUN 39, creatinine 1.18. Troponin peaked at 0.2 on admission. The patient's CBC last obtained on 09/18/18, white blood cell count 5.3, hemoglobin of 8.3, hematocrit of 26, and platelets of 134,000. Microbiology test renal cultures reported as over 100,000 colonies of Maritza albicans. The patient's stool occult for blood was positive and melanotic. The patient's blood cultures were negative. CONSULTATIONS DURING HOSPITAL STAY: Included Dr. Isabell Ferrer from [facility]iative [facility]. HOSPITALIZATION COURSE: Bhavani Vo is a 78-year-old female with history of recent hospitalization for gangrenous cholecystitis status post partial laparoscopic cholecystectomy who was brought into the hospital from a halfway while she was in rehab with lethargy, hypernatremia, marked dehydration, clogged Roberts, and melanotic stools. The patient was diagnosed with likely GI bleed. The patient also has elevated troponin and anemia. She was markedly lethargic. Long discussion was carried on by the patient's , Tim Vo. Tim noted that the patient has significant dementia and her quality of life in the halfway is very poor. He decided for the patient to be comfort care and comfort care orders were started on 09/18/18. The patient was continued on Protonix for her GI bleed if tolerated due to the possibility of discomfort if she does have a problem with a possible ulcer. Her Bystolic is to be continued also as tolerated. The patient also should be on morphine concentrate as needed. The patient was accepted to [facility] for further placement and it is recommended for the patient to have a hospice referral at arrival to [facility] on 09/20/18. For physical exam at the time of this dictation, please see daily progress notes. Please note that this is a short summary of the patient's hospitalization. Please refer to further medical records for details. TIME SPENT: Approximately 45 minutes were spent on preparation of this patient' s discharge. [id number]/CPS #: [id number] LINDA
[2018-09-20] MEDS: Morphine ORAL CONCENTRATE* 5 MG/0.25 ML ORAL.SYRIN SL PRN ×2 (01:29→08:39)
[2018-09-20] MEDS: Lactobacillus Acidophilus* 1 TAB PO SCH (08:27)
[2018-09-20] MEDS: CMC:Nebivolol TAB (NF) 2.5 MG TAB PO SCH (08:27)
[2018-09-20] MEDS: Vancomycin CAP* 125 MG CAP PO SCH (08:27)
[2018-09-20] MEDS: Nystatin TOP POWDER* 15 GM BTL TOPICAL SCH (08:27)
[2018-09-20] MEDS: Pantoprazole TAB * 40 MG TAB PO SCH (08:33)
[2018-09-20 10:43] VITALS: BP 136/60
== END 2018-09-20 10:35 | DRG 699 ==
LOC: ED 14:02 → MED 17:56
PROVIDERS: ADMIT Internal Medicine; ATTEND Internal Medicine
PROC: 0T2BX0Z Change Drainage Device in Bladder, External Approach (ICD-10-PCS; principal; 2018-09-17)
DX: T83.511A Infection and inflammatory reaction due to indwelling urethral catheter, initial encounter (principal); K92.1 Melena; B37.49 Other urogenital candidiasis; N17.9 Acute kidney failure, unspecified; I24.8 Other forms of acute ischemic heart disease; J98.11 Atelectasis; A04.72 Enterocolitis due to Clostridium difficile, not specified as recurrent; E87.0 Hyperosmolality and hypernatremia; R33.9 Retention of urine, unspecified; T83.091A Other mechanical complication of indwelling urethral catheter, initial encounter; E86.0 Dehydration; E11.9 Type 2 diabetes mellitus without complications; F03.90 Unspecified dementia, unspecified severity, without behavioral disturbance, psychotic disturbance, mood disturbance, and anxiety; M19.90 Unspecified osteoarthritis, unspecified site; D64.9 Anemia, unspecified; R62.7 Adult failure to thrive; Z66 Do not resuscitate; Y73.1 Therapeutic (nonsurgical) and rehabilitative gastroenterology and urology devices associated with adverse incidents; I48.91 Unspecified atrial fibrillation; I25.10 Atherosclerotic heart disease of native coronary artery without angina pectoris; Z88.2 Allergy status to sulfonamides; Z95.1 Presence of aortocoronary bypass graft; Z83.3 Family history of diabetes mellitus; Z90.49 Acquired absence of other specified parts of digestive tract; Z82.49 Family history of ischemic heart disease and other diseases of the circulatory system; Z68.28 Body mass index [BMI] 28.0-28.9, adult; Y92.9 Unspecified place or not applicable
CPT/HCPCS: 36415; 71045; 80048; 80053; 81003; 81015; 82140; 82270; 82550; 83605; 83735; 84443; 84484; 85025; 87040; 87086; 87106; 93005; 99284; A9270-GY; J0696